=== PATIENT | female | born 1935 | race Caucasian/White ===

== ENCOUNTER → 2016-12-14 | Outpatient (CLI) | payer MEDICARE, OTHER ==
[~2016-12-14] MED LIST: DENOSUMAB 60 MG/1 ML (PROLIA) CANCER CTR SQ SCH
== END ==
LOC: FS 10:01
PROVIDERS: ATTEND Internal Medicine Hematology & Oncology
DX: C50.412 Malignant neoplasm of upper-outer quadrant of left female breast (principal); Z17.0 Estrogen receptor positive status [ER+]; M81.0 Age-related osteoporosis without current pathological fracture; F03.90 Unspecified dementia, unspecified severity, without behavioral disturbance, psychotic disturbance, mood disturbance, and anxiety; I10 Essential (primary) hypertension; I48.91 Unspecified atrial fibrillation; Z90.12 Acquired absence of left breast and nipple; Z79.810 Long term (current) use of selective estrogen receptor modulators (SERMs); Z79.899 Other long term (current) drug therapy
CPT/HCPCS: 96372; 99213

== ENCOUNTER → 2017-04-11 | Outpatient (CLI) | payer MEDICARE, OTHER | LOC: CARD 09:12 | PROVIDERS: ATTEND Internal Medicine Interventional Cardiology | DX: I48.91 Unspecified atrial fibrillation (principal); I10 Essential (primary) hypertension; R05 Cough; R55 Syncope and collapse | CPT/HCPCS: 93306 ==

== ENCOUNTER 2017-05-09 09:01 | Outpatient (RCR) | payer MEDICARE, OTHER | END 2017-06-18 | disposition home or self-care (01) | LOC: CARD 09:01 | PROVIDERS: ATTEND Internal Medicine Interventional Cardiology | DX: I48.91 Unspecified atrial fibrillation (principal); I10 Essential (primary) hypertension; R55 Syncope and collapse | CPT/HCPCS: 93270 ==

== ENCOUNTER 2017-06-07 16:02 | Outpatient (RCR) | payer MEDICARE, OTHER | END 2017-06-15 09:38 | disposition home or self-care (01) | LOC: ONC 16:02 | PROVIDERS: ATTEND Internal Medicine Hematology & Oncology | DX: Z08 Encounter for follow-up examination after completed treatment for malignant neoplasm (principal); Z85.3 Personal history of malignant neoplasm of breast; M81.0 Age-related osteoporosis without current pathological fracture; F03.90 Unspecified dementia, unspecified severity, without behavioral disturbance, psychotic disturbance, mood disturbance, and anxiety; I10 Essential (primary) hypertension; I48.91 Unspecified atrial fibrillation; Z17.0 Estrogen receptor positive status [ER+]; Z90.12 Acquired absence of left breast and nipple; Z79.810 Long term (current) use of selective estrogen receptor modulators (SERMs); Z79.899 Other long term (current) drug therapy | CPT/HCPCS: 96372 ==

== ENCOUNTER 2017-11-29 09:29 | Outpatient (RCR) | payer MEDICARE, OTHER ==
[2017-11-29 09:47] LABS: BASOPHILS % (AUTO) 0 % (0-10); EOSINOPHILS # (AUTO) 0.1 10^3/uL (0.0-0.3); EOSINOPHILS % (AUTO) 1 % (0-10); HEMATOCRIT 34 % (35-52); HEMOGLOBIN 11.5 G/DL (11.5-16.0); LYMPHOCYTES # (AUTO) 0.8 X 10^3 (1.0-4.0); LYMPHOCYTES % (AUTO) 13 % (12-44); MEAN CORPUSCULAR HEMOGLOBIN 30 PG (25-34); MEAN CORPUSCULAR HGB CONC 34 G/DL (32-36); MEAN CORPUSCULAR VOLUME 90 FL (80-99); MEAN PLATELET VOLUME 9.9 FL (7.4-10.4); MONOCYTES # (AUTO) 0.7 X 10^3 (0.0-1.0); MONOCYTES % (AUTO) 11 % (0-12); NEUTROPHILS # (AUTO) 4.7 X 10^3 (1.8-7.8); NEUTROPHILS % (AUTO) 75 % (42-75); PLATELET COUNT 261 10^3/uL (130-400); RED BLOOD COUNT 3.81 10^6/uL (4.35-5.85); RED CELL DISTRIBUTION WIDTH 12.6 % (10.0-14.5); WHITE BLOOD COUNT 6.2 10^3/uL (4.3-11.0)
[2017-11-29 10:08] LABS: ALANINE AMINOTRANSFERASE 18 U/L (0-55); ALBUMIN 3.8 GM/DL (3.2-4.5); ALKALINE PHOSPHATASE 75 U/L (40-136); BILIRUBIN,TOTAL 0.7 MG/DL (0.1-1.0); BUN/CREATININE RATIO 16; CALCIUM 9.8 MG/DL (8.5-10.1); CARBON DIOXIDE 30 MMOL/L (21-32); CHLORIDE 100 MMOL/L (98-107); CREATININE SERUM 0.83 MG/DL (0.60-1.30); GFR ESTIMATED > 60; GLUCOSE 145 MG/DL (70-105); POTASSIUM 4.2 MMOL/L (3.6-5.0); SODIUM 135 MMOL/L (135-145); TOTAL PROTEIN 7.1 GM/DL (6.4-8.2)
[2017-11-29] MEDS ORDERED: DENOSUMAB 60 MG/1 ML (PROLIA) CANCER CTR SQ SCH (10:45)
== END 2018-02-27 | disposition home or self-care (01) ==
LOC: ONC 09:29
PROVIDERS: ATTEND Internal Medicine Hematology & Oncology
DX: Z08 Encounter for follow-up examination after completed treatment for malignant neoplasm (principal); Z85.3 Personal history of malignant neoplasm of breast; M81.0 Age-related osteoporosis without current pathological fracture; R19.7 Diarrhea, unspecified; F03.90 Unspecified dementia, unspecified severity, without behavioral disturbance, psychotic disturbance, mood disturbance, and anxiety; I10 Essential (primary) hypertension; I48.91 Unspecified atrial fibrillation; Z90.12 Acquired absence of left breast and nipple; Z79.01 Long term (current) use of anticoagulants; Z79.899 Other long term (current) drug therapy
CPT/HCPCS: 36415; 80053; 85025; 96372; 99213

== ENCOUNTER 2018-06-12 08:46 | Outpatient (RCR) | payer MEDICARE, OTHER ==
[2018-06-12 09:02] LABS: BASOPHILS % (AUTO) 0 % (0-10); EOSINOPHILS # (AUTO) 0.1 10^3/uL (0.0-0.3); EOSINOPHILS % (AUTO) 2 % (0-10); HEMATOCRIT 34 % (35-52); HEMOGLOBIN 11.9 G/DL (11.5-16.0); LYMPHOCYTES % (AUTO) 18 % (12-44); MEAN CORPUSCULAR HEMOGLOBIN 32 PG (25-34); MEAN CORPUSCULAR HGB CONC 35 G/DL (32-36); MEAN CORPUSCULAR VOLUME 90 FL (80-99); MEAN PLATELET VOLUME 10.1 FL (7.4-10.4); MONOCYTES # (AUTO) 0.7 X 10^3 (0.0-1.0); MONOCYTES % (AUTO) 13 % (0-12); NEUTROPHILS # (AUTO) 3.8 X 10^3 (1.8-7.8); NEUTROPHILS % (AUTO) 67 % (42-75); PLATELET COUNT 213 10^3/uL (130-400); RED BLOOD COUNT 3.78 10^6/uL (4.35-5.85); RED CELL DISTRIBUTION WIDTH 12.9 % (10.0-14.5); WHITE BLOOD COUNT 5.7 10^3/uL (4.3-11.0)
[2018-06-12 09:23] LABS: ALBUMIN 3.9 GM/DL (3.2-4.5); BILIRUBIN,TOTAL 0.8 MG/DL (0.1-1.0); CALCIUM 9.7 MG/DL (8.5-10.1); POTASSIUM 3.8 MMOL/L (3.6-5.0); TOTAL PROTEIN 6.9 GM/DL (6.4-8.2)
[2018-06-12] MEDS ORDERED: DENOSUMAB 60 MG/1 ML (PROLIA) CANCER CTR SQ SCH (09:58)
[2018-06-12 10:04] LABS: BILIRUBIN,URINE NEGATIVE (NEGATIVE); CLARITY,URINE VERY CLOUDY; COLOR,URINE YELLOW; GLUCOSE, URINE (UA) NEGATIVE (NEGATIVE); KETONES,URINE NEGATIVE (NEGATIVE); LEUKOCYTE ESTERASE ,URINE 3+ (NEGATIVE); NITRITE,URINE NEGATIVE (NEGATIVE); PH,URINE 6 (5-9); PROTEIN,URINE 1+ (NEGATIVE); UROBILINOGEN,URINE NORMAL (NORMAL)
[2018-06-12 10:14] LABS: BACTERIA,URINE MODERATE /HPF; RBC,URINE >100 /HPF
== END 2018-06-18 | disposition home or self-care (01) ==
LOC: ONC 08:46
PROVIDERS: ATTEND Internal Medicine Hematology & Oncology
DX: Z08 Encounter for follow-up examination after completed treatment for malignant neoplasm (principal); Z85.3 Personal history of malignant neoplasm of breast; M81.0 Age-related osteoporosis without current pathological fracture; R82.90 Unspecified abnormal findings in urine; F03.90 Unspecified dementia, unspecified severity, without behavioral disturbance, psychotic disturbance, mood disturbance, and anxiety; I10 Essential (primary) hypertension; I48.91 Unspecified atrial fibrillation; Z90.12 Acquired absence of left breast and nipple; Z79.01 Long term (current) use of anticoagulants; Z79.899 Other long term (current) drug therapy
CPT/HCPCS: 36415; 80053; 81000; 85025; 87088; 96372; 99213

== ENCOUNTER 2018-12-11 09:11 | Outpatient (RCR) | payer MEDICARE, OTHER ==
[2018-12-11] MEDS ORDERED: DENOSUMAB 60 MG/1 ML (PROLIA) CANCER CTR SQ SCH (09:30)
== END 2019-03-11 | disposition home or self-care (01) ==
LOC: ONC 09:11
PROVIDERS: ATTEND Internal Medicine Hematology & Oncology
DX: Z08 Encounter for follow-up examination after completed treatment for malignant neoplasm (principal); Z85.3 Personal history of malignant neoplasm of breast; M81.0 Age-related osteoporosis without current pathological fracture; R82.90 Unspecified abnormal findings in urine; F03.90 Unspecified dementia, unspecified severity, without behavioral disturbance, psychotic disturbance, mood disturbance, and anxiety; I10 Essential (primary) hypertension; I48.91 Unspecified atrial fibrillation; Z90.12 Acquired absence of left breast and nipple; Z79.01 Long term (current) use of anticoagulants; Z79.899 Other long term (current) drug therapy; Z17.0 Estrogen receptor positive status [ER+]; Z79.810 Long term (current) use of selective estrogen receptor modulators (SERMs)
CPT/HCPCS: 96372

== ENCOUNTER → 2019-05-31 | Outpatient (CLI) | payer MEDICARE, OTHER ==
--- NOTE | 2019-05-31 13:48 | Diagnostic Imaging Report ---
CLINICAL INDICATION: Patient with TIA and syncope. COMPARISON: None. EXAM: Real-time carotid Doppler duplex imaging is performed bilaterally. Peak systolic velocity, ICA/CCA peak systolic ratio, spectral analysis, and vascular morphology are studied. FINDINGS: ARTERY VELOCITY Right Left CCA 0.75 m/s 0.83 m/s ICA 0.67 m/s 1.03 m/s ECA 0.59 m/s 0.67 m/s ICA/CCA 0.9 1.2 VERT.ART Antegrade Antegrade There is mild bilateral carotid artery atherosclerotic disease. IMPRESSION: There is mild bilateral carotid artery atherosclerotic disease with no grayscale or Doppler evidence of significant vascular stenosis. Dictated by: Dictated on workstation # [id number]
== END ==
LOC: CARD 08:20
PROVIDERS: ATTEND Internal Medicine Interventional Cardiology
DX: G45.9 Transient cerebral ischemic attack, unspecified (principal); I49.2 Junctional premature depolarization; I11.9 Hypertensive heart disease without heart failure; E78.5 Hyperlipidemia, unspecified; I48.0 Paroxysmal atrial fibrillation; I27.20 Pulmonary hypertension, unspecified; I65.23 Occlusion and stenosis of bilateral carotid arteries; I08.0 Rheumatic disorders of both mitral and aortic valves
CPT/HCPCS: 93306; 93880

== ENCOUNTER 2019-06-12 09:29 | Outpatient (RCR) | payer MEDICARE, OTHER | END 2019-09-10 | disposition home or self-care (01) | LOC: ONC 09:29 | PROVIDERS: ATTEND Internal Medicine Hematology & Oncology | DX: Z08 Encounter for follow-up examination after completed treatment for malignant neoplasm (principal); Z85.3 Personal history of malignant neoplasm of breast; M81.0 Age-related osteoporosis without current pathological fracture; R82.90 Unspecified abnormal findings in urine; F03.90 Unspecified dementia, unspecified severity, without behavioral disturbance, psychotic disturbance, mood disturbance, and anxiety; I10 Essential (primary) hypertension; I48.91 Unspecified atrial fibrillation; Z90.12 Acquired absence of left breast and nipple; Z79.01 Long term (current) use of anticoagulants; Z79.899 Other long term (current) drug therapy; Z17.0 Estrogen receptor positive status [ER+]; Z79.810 Long term (current) use of selective estrogen receptor modulators (SERMs) | CPT/HCPCS: 99213 ==

== ENCOUNTER 2019-11-06 09:52 | Outpatient (RCR) | payer MEDICARE, OTHER ==
[2019-11-06 10:02] LABS: BASOPHILS % (AUTO) 1 % (0-10); EOSINOPHILS # (AUTO) 0.1 10^3/uL (0.0-0.3); EOSINOPHILS % (AUTO) 1 % (0-10); HEMATOCRIT 35 % (35-52); HEMOGLOBIN 11.7 G/DL (11.5-16.0); LYMPHOCYTES # (AUTO) 0.8 X 10^3 (1.0-4.0); LYMPHOCYTES % (AUTO) 15 % (12-44); MEAN CORPUSCULAR HEMOGLOBIN 30 PG (25-34); MEAN CORPUSCULAR HGB CONC 33 G/DL (32-36); MEAN CORPUSCULAR VOLUME 89 FL (80-99); MEAN PLATELET VOLUME 9.7 FL (7.4-10.4); MONOCYTES # (AUTO) 0.6 X 10^3 (0.0-1.0); MONOCYTES % (AUTO) 10 % (0-12); NEUTROPHILS # (AUTO) 4.2 X 10^3 (1.8-7.8); NEUTROPHILS % (AUTO) 74 % (42-75); PLATELET COUNT 244 10^3/uL (130-400); RED CELL DISTRIBUTION WIDTH 13.3 % (10.0-14.5); WHITE BLOOD COUNT 5.7 10^3/uL (4.3-11.0)
[2019-11-06 10:24] LABS: ALANINE AMINOTRANSFERASE < 6 U/L (0-55); ALKALINE PHOSPHATASE 97 U/L (40-136); BILIRUBIN,TOTAL 0.6 MG/DL (0.1-1.0); BUN/CREATININE RATIO 10; CALCIUM 9.9 MG/DL (8.5-10.1); CARBON DIOXIDE 29 MMOL/L (21-32); CHLORIDE 102 MMOL/L (98-107); CREATININE SERUM 1.08 MG/DL (0.60-1.30); GFR ESTIMATED 48; GLUCOSE 116 MG/DL (70-105); POTASSIUM 3.8 MMOL/L (3.6-5.0); SODIUM 139 MMOL/L (135-145); TOTAL PROTEIN 7.1 GM/DL (6.4-8.2)
== END 2020-02-04 | disposition home or self-care (01) ==
LOC: ONC 09:52
PROVIDERS: ATTEND Internal Medicine Hematology & Oncology
DX: Z08 Encounter for follow-up examination after completed treatment for malignant neoplasm (principal); Z85.3 Personal history of malignant neoplasm of breast; M81.0 Age-related osteoporosis without current pathological fracture; R82.90 Unspecified abnormal findings in urine; F03.90 Unspecified dementia, unspecified severity, without behavioral disturbance, psychotic disturbance, mood disturbance, and anxiety; I10 Essential (primary) hypertension; I48.91 Unspecified atrial fibrillation; Z90.12 Acquired absence of left breast and nipple; Z79.01 Long term (current) use of anticoagulants; Z79.899 Other long term (current) drug therapy; Z17.0 Estrogen receptor positive status [ER+]; Z79.810 Long term (current) use of selective estrogen receptor modulators (SERMs)
CPT/HCPCS: 80053; 85025; 96372

== ENCOUNTER → 2019-11-12 | Outpatient (CLI) | payer MEDICARE, OTHER ==
[~2019-11-12] MED LIST changes: +CATHETER FLUSH 10 ML SYR IV PRN; -DENOSUMAB 60 MG/1 ML (PROLIA) CANCER CTR SQ SCH; +HOLD METFORMIN - RECEIVED CONTRAST 20 ML VIAL IV SCH; +IOHEXOL 350 MG/ML 100 ML (OMNIPAQUE 350) VIAL IV ONE; +NS 100 ML (IVPB) BAG IV ONE
--- NOTE | 2019-11-12 12:12 | Diagnostic Imaging Report ---
PROCEDURE: CT abdomen with and without contrast. TECHNIQUE: Multiple contiguous axial CT images of the abdomen were obtained prior to and after intravenous administration of iodinated contrast. Auto Exposure Controls were utilized during the CT exam to meet ALARA standards for radiation dose reduction. DATE: November 12, 2019. COMPARISON: None. INDICATION: 84-year-old female, hematuria. Mid abdominal pain. History of left breast cancer. FINDINGS: There are bilateral breast implants. The heart is not grossly enlarged. There is no identified pericardial effusion. There are atherosclerotic calcifications. There is no identified high-grade vascular narrowing or occlusion. There is a small right and a small left pleural effusion. There is mild compressive atelectasis in the dependent aspect of the right lower lobe. The liver is unremarkable in size and contour. There is no identified liver lesion. The main, right, and left portal veins are patent. The patient is status post cholecystectomy. The common bile duct measures up to 8 mm in diameter which is within normal limits for patient age. There are multiple small rounded low-attenuation foci along the course of the pancreas. These potentially could relate to abnormally dilated pancreatic ductal side branches. Multiple low-attenuation pancreatic lesions would be an additional less likely consideration. The spleen is not enlarged. The adrenal glands are unremarkable. Unremarkable appearance of the renal parenchyma. There is no hydronephrosis. The imaged portions of the intestinal tract are not distended. There is no identified abnormally enlarged lymph node in the abdomen or pelvis which meets CT size criteria for adenopathy. There are degenerative changes of the spine. There is no identified bone lesion suspicious for a bone metastasis. There is no otherwise identified acute bony abnormality. IMPRESSION: CT ABDOMEN. 1. Small bilateral pleural effusions with mild compressive atelectasis in the right lower lobe. 2. Multiple abnormal low attenuation foci in the pancreas which potentially could relate to abnormal appearance of the pancreatic ducts and findings of chronic pancreatitis. Multiple low-attenuation lesions in the pancreas is considered less likely. This would be more optimally evaluated with imaging with MRI abdomen without and with intravenous contrast with MRCP sequences. Correlation with earlier comparison cross-sectional imaging would be recommended if available to assess for potential stability. 3. No evidence of acute pancreatitis. 4. No evidence of metastatic disease in the abdomen. Dictated by: Dictated on workstation # [id number]
== END ==
LOC: RAD FS 10:39
PROVIDERS: ATTEND Internal Medicine Hematology & Oncology
DX: R31.9 Hematuria, unspecified (principal); C50.412 Malignant neoplasm of upper-outer quadrant of left female breast; J90 Pleural effusion, not elsewhere classified; J98.11 Atelectasis
CPT/HCPCS: 74170

== ENCOUNTER 2019-12-22 20:20 | Emergency (ER) | payer MEDICARE, OTHER ==
[~2019-12-22] VITALS: Ht 165.1 cm; Wt 78.7 kg
--- OUTSIDE RECORDS SUMMARY | 2019-12-22 20:28 | XMS REPORT | Encounter Summary ---
Author Author [facility] Organization [facility] Address Unknown Phone Unavailable Care Team Providers Care President [employer]gon[employer] Consulting Name Role Phone Laura Lee PCP Reason for Visit * Reason Comments MILD CONGNITIVE LAST OFFICE VISIT: 07/19/19 ; 3MO F/U. Pt states "tremors have decreased and IMPAIRMENT more alert" Encounter Details Care Team Description Date Type Department Andrzej Gama, [address] [address] [phone] Mild cognitive impairment (Primary Dx); Parkinson's disease (HCC); Tremor, essential; Compulsive behavior; Bradycardia 10/19/2019 [place] [facility] [address] [facility] [address] [place] [address] Social History Date Tobacco Use Types Packs/Day Years Used Never Smoker Smokeless Tobacco: Never Used Drinks/Week oz/Week Comments Alcohol Use No Sex Assigned at Date Recorded Not on file Industry Job Start Date Occupation Not on file Not on file Not on file Travel End Travel History Travel Start No recent travel history available. documented as of this encounter Last Filed Vital Signs Reading Time Taken Comments Vital Sign 118/58 10/19/2019 11:07 AM PILE OPERATOR Blood Pressure 50 10/19/2019 11:07 AM PILE OPERATOR Pulse - - Temperature - - Respiratory Rate - - Oxygen Saturation - - Inhaled Oxygen Concentration 77.7 kg (171 lb 6.4 oz) 10/19/2019 11:07 AM PILE OPERATOR Weight 170.2 cm (5' 7") 10/19/2019 11:07 AM PILE OPERATOR Height 26.85 10/19/2019 11:07 AM PILE OPERATOR Body Mass Index documented in this encounter Progress Notes * Andrzej Gama, DO - 10/19/2019 11:15 AM PILE OPERATOR NEUROLOGY OFFICE VISIT Patient Name: Bettina Dean : 1935 PCP: Laura Lee MD Date of service: 10/19/2019 HISTORY OF PRESENT ILLNESS Bettina Dean is a 84 y.o., female seen in followup, accompanied by her so n, Uri, last seen on July 19 last year regarding her mild cognitive impairm ent, mild idiopathic Parkinson disease, compulsion of facial touching, and benenid n essential tremor. She had a prior history of a TIA. No recent TIA or strokel nette symptoms. She has chronic atrial fibrillation on Eliquis. She is on sotalo l. She sees a welder apprentice arc regularly. For her mild cognitive impairment, she is on donepezil 10 mg daily. There has b een no change in cognition. She occasionally rubs her face, scratches her head and fumbles in her hands. No delusions or hallucinations. For her parkinsonism, she is on regular carbidopa/levodopa 25/100 t.i.d., which she is tolerating well. It has helped her tremor. No problems with balance. N o near falling or falling episodes. No drooling. No RLS symptoms. No dream en actment. She denies any dizziness or lightheadedness. No syncopal episodes. S he is in assisted living. I reviewed her medical problem list : Pedal edema, hypokalemia, prior syncope, a trial fibrillation, nonrheumatic mitral prolapse and insufficiency, essential hy pertension, constipation, GERD, PAD, glaucoma, and pulmonary hypertension. REVIEW OF SYSTEMS ROS other than documented in HPI 10 point review of systems is otherwise negativ e. CURRENT MEDICATIONS: Patient's Medications New Prescriptions No medications on file Previous Medications APIXABAN (ELIQUIS) 5 MG TABLET Take 5 mg by mouth 2 (two) times a day. BENZONATATE (TESSALON) 100 MG CAPSULE Take 100 mg by mouth 2 (two) times a d ay. CALCIUM CARBONATE (CALCIUM 500 ORAL) Take 1 tablet by mouth daily. CARBIDOPA-LEVODOPA (SINEMET) 25-100 MG PER TABLET Take 1 tablet by mouth 3 ( three) times a day. CHOLECALCIFEROL, VITAMIN D3, (VITAMIN D3) 2,000 UNIT TAB Take 2,000 Units by mouth daily. DABIGATRAN ETEXILATE (PRADAXA) 75 MG CAPSULE Take 75 mg by mouth 2 (two) ana es a day. DOCUSATE CALCIUM (SURFAK) 240 MG CAPSULE Take 240 mg by mouth as needed for constipation. DONEPEZIL (ARICEPT) 10 MG TABLET 1 tab daily FAMOTIDINE (PEPCID) 20 MG TABLET Take 20 mg by mouth at bedtime. FLUTICASONE PROPIONATE (FLONASE ALLERGY RELIEF) 50 MCG/ACTUATION NASAL SPRAY Use 1 spray in each nostril as directed. FOOD SUPPLEMT, LACTOSE-REDUCED (ENSURE ORIGINAL) 0.04-1.05 GRAM-KCAL/ML LIQD Take by mouth 2 (two) times a day. IPRATROPIUM (ATROVENT) 0.03 % NASAL SPRAY Use 2 sprays in each nostril 2 (tw o) times a day. LATANOPROST (XALATAN) 0.005 % OPHTHALMIC SOLUTION Administer 1 drop to eye d aily. LEVOCETIRIZINE (XYZAL) 5 MG TABLET Take 5 mg by mouth every evening. MONTELUKAST (SINGULAIR) 10 MG TABLET Take 10 mg by mouth daily. NAPROXEN SODIUM (ALEVE) 220 MG CAP Take 1 capsule by mouth every 4 (four) ho urs as needed. POLYETHYLENE GLYCOL (MIRALAX) 17 GRAM/DOSE POWDER Take by mouth as needed. POTASSIUM CHLORIDE ORAL Take 10 mEq by mouth daily. SENNA (SENOKOT) 8.6 MG TABLET Take 1 tablet by mouth as needed for constipat ion. SERTRALINE (ZOLOFT) 25 MG TABLET Take 25 mg by mouth daily. SOTALOL (BETAPACE) 80 MG TABLET SOTALOL HCL (SOTALOL ORAL) Take by mouth. Pt states taking 1 pill in the AM and 1/2 pill in the PM WHITE PETROLATUM (AQUAPHOR HEALING) 41 % OINTMENT Apply topically as needed. Modified Medications No medications on file Discontinued Medications No medications on file ALLERGIES: No Known Allergies Physical Exam: Blood Pressure: BP: 118/58 Pulse: Pulse: (!) 50 Temperature: Respirations: Admission Weight: Weight: 77.7 kg (171 lb 6.4 oz) O2 Saturation: Today's Weight: Weight: 77.7 kg (171 lb 6.4 oz) BMI: Body mass index is 26.85 kg /m. She is alert with appropriate affect and mood, in no distress. Mild hypophonia. Language function intact. She is oriented x3. She could obey serial commands. She spells the word 'world' forwards and backwards. Recall 2-3 objects at 5 minutes.Clock drawing task normal.One-minute animal naming 13 (slightly abnorma l). Mild masked facies.EOMI. No tremor when drawing an Archimedes spiral.Continuous moderate amplitude right hand resting tremor. Minimal bilateral arm postural tremor which increased with kinetic movements. Mild right cogwheel rigidity only with augmentation. Finger tapping mildly slow on the right.Slight stooped posture with ambulation with reduced arm swing on the right and increasing right hand tremor. Normal leg str radha length. She turned slightly en bloc. Normal pull. Impression: Parkinson's disease stable. Mild cognitive impairment Compulsive behavior nonproblematic Minimal benign essential tremor Asymptomatic bradycardia Plan: No changes in her medication regimen. I recommended that she see her cardiology regarding asymptomatic bradycardia.Donepezil may be the cause. If this is so, I can discontinue this. Follow up in 6 months and p.r.n. Electronically signed by Andrzej Gama DO 10/19/2019 12:19 PM OPERATOR documented in this encounter Plan of Treatment Care Team Description Date Type Specialty Andrzej Gama DO [address] [address] [phone] 04/17/2020 Office Visit Neurology documented as of this encounter Visit Diagnoses Diagnosis Mild cognitive impairment Mild cognitive impairment, so stated Parkinson's disease (HCC) Paralysis agitans Tremor, essential Essential and other specified forms of tremor Compulsive behavior Obsessive-compulsive disorders Bradycardia Other specified cardiac dysrhythmias documented in this encounter
--- OUTSIDE RECORDS SUMMARY | 2019-12-22 20:28 | XMS REPORT | Clinical Summary ---
Author Author [facility] Organization [facility] Address Unknown Phone Unavailable Care Team Providers Care Central Office Maintainer Name Role Phone LeeLaura PCP Allergies No Known Allergies Medications End Date Status Medication Sig Dispensed Refills Start Date Active SOTALOL HCL (SOTALOL Take by 0 ORAL) mouth. Pt states taking 1 pill in the AM and 1/2 pill in the PM Active benzonatate (TESSALON) Take 100 mg 0 100 MG capsule by mouth 2 (two) times a day. Active famotidine (PEPCID) 20 MG Take 20 mg by 0 tablet mouth at bedtime. Active POTASSIUM CHLORIDE ORAL Take 10 mEq 0 by mouth daily. Active levocetirizine (XYZAL) 5 Take 5 mg by 0 MG tablet mouth every evening. Active sertraline (ZOLOFT) 25 mg Take 25 mg by 0 tablet mouth daily. Active cholecalciferol, vitamin Take 2,000 0 D3, (VITAMIN D3) 2,000 Units by unit Tab mouth daily. Active ipratropium (ATROVENT) Use 2 sprays 0 0.03 % nasal spray in each nostril 2 (two) times a day. Active CALCIUM CARBONATE Take 1 tablet 0 (CALCIUM 500 ORAL) by mouth daily. Active polyethylene glycol Take by mouth 0 (MIRALAX) 17 gram/dose as needed. powder Active sotalol (BETAPACE) 80 MG 0 tablet 7 Active white petrolatum Apply 0 (AQUAPHOR HEALING) 41 % topically as ointment needed. Active senna (SENOKOT) 8.6 mg Take 1 tablet 0 tablet by mouth as needed for constipation. Active docusate calcium (SURFAK) Take 240 mg 0 240 mg capsule by mouth as needed for constipation. 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 Active carbidopa-levodopa Take 1 tablet 90 tablet 5 04/26 (SINEMET) 25-100 mg per by mouth 3 9 tabletIndications: (three) times parkinsonism a day. Active latanoprost (XALATAN) Administer 1 0 0.005 % ophthalmic drop to eye solution daily. Active fluticasone propionate Use 1 spray 0 (FLONASE ALLERGY RELIEF) in each 50 mcg/actuation nasal nostril as spray directed. Active food supplemt, Take by mouth 0 lactose-reduced (ENSURE 2 (two) times ORIGINAL) 0.04-1.05 a day. gram-kcal/mL Liqd Active naproxen sodium (ALEVE) Take 1 0 220 mg cap capsule by mouth every 4 (four) hours as needed. Active montelukast (SINGULAIR) Take 10 mg by 0 10 mg tablet mouth daily. Active apixaban (ELIQUIS) 5 mg Take 5 mg by 0 tablet mouth 2 (two) times a day. Active Problems Problem Noted Date Compulsive behavior 10/19/2019 Bradycardia 10/19/2019 Tremor, essential 07/19/2019 Parkinson's disease 04/26/2019 Mild cognitive impairment 07/14/2017 Resolved Problems Problem Noted Date Resolved Date Mild cognitive impairment 08/28/2018 09/20/2018 Encounters Care Team Description Date Type Specialty Andrzej Gama DO Mild cognitive impairment (Primary Dx); Parkinson's disease (HCC); Tremor, essential; Compulsive behavior; Bradycardia 10/19/2019 Office Visit Neurology from Last 3 Months Family History Medical History Relation Name Comments No Known Problems Daughter Diabetes Mother Stroke Mother Tremor Mother No Known Problems Son Relation Name Status Comments Daughter Alive Father Mother Son Alive Social History Date Tobacco Use Types Packs/Day Years Used Never Smoker Smokeless Tobacco: Never Used Drinks/Week oz/Week Comments Alcohol Use No Sex Assigned at Date Recorded Not on file Industry Job Start Date Occupation Not on file Not on file Not on file Travel End Travel History Travel Start No recent travel history available. Last Filed Vital Signs Reading Time Taken Comments Vital Sign 118/58 10/19/2019 11:07 AM REAL ESTATE ASSESSOR Blood Pressure 50 10/19/2019 11:07 AM REAL ESTATE ASSESSOR Pulse - - Temperature - - Respiratory Rate - - Oxygen Saturation - - Inhaled Oxygen Concentration 77.7 kg (171 lb 6.4 oz) 10/19/2019 11:07 AM REAL ESTATE ASSESSOR Weight 170.2 cm (5' 7") 10/19/2019 11:07 AM REAL ESTATE ASSESSOR Height 26.85 10/19/2019 11:07 AM REAL ESTATE ASSESSOR Body Mass Index Plan of Treatment Care Team Description Date Type Specialty Andrzej Gama, DO [address] [facility] [address] [place] [address] [phone] 04/17/2020 Office Visit Neurology Health Maintenance Due Date Last Done Comments Medicare Annual Wellness 1935 Td # 1935 Zoster Vaccine# (1 of 2) 1985 Depression Screening 2000 PHQ-9 # Fall Risk Assessment # 2000 Osteoporosis Screening 2000 Pneumococcal Vaccine: 65+ 2000 02/21/2019 Years (2 of 2 - PPSV23) Influenza Vaccine Completed 07/11/2019, 06/22/2017, 06/22/2016, Additional history exists Results Not on filefrom Last 3 Months Insurance Type Payer Benefit Subscriber ID Effective Phone Address Plan / Dates Group Medicare MEDICARE MEDICARE xxxxxxxxxxx 2000-P [place] PART A B [place], [place] COMMERCIAL-NONCONTRACTED MUTUAL OF xxxxxxxx 2015- DARRELL Present MEDICARE SUPPLEMENT [id number] Bettina Dean Personal/F Self [address] [place] (Home) [place] [address] Bettina Dean Personal/F Self [address] [place] (Home) [place], [place] [address] Bettina Dean Behavioral Self 1935 [address] [facility] (Home) [place], [place] [address] Advance Directives For more information, please contact: [phone] Patient Asset Protection Greeter Explanation Type Date Recorded Advance Directives and Living Will Power of [employer] Director EYAL Meza Power of [employer] Director 06/08/2017 1:02 PM Health Care Directive
--- OUTSIDE RECORDS SUMMARY | 2019-12-22 20:28 | XMS REPORT | Encounter Summary ---
Author Author [facility] Organization [facility] Address Unknown Phone Unavailable Care Team Providers Care Internet Salesperson Name Role Phone Laura Lee PCP Reason for Visit * Reason Comments Follow-up Last office visit was on with Dr. Andrzej Gama. Son states that the patient has some gait i nstability and it is always on the left side. Parkinson's Disease Mild Cognitive Impairment Daughter states that the p atient has had some memory relapses. Encounter Details Care Team Description Date Type Department Andrzej Gama, [address] [address] [phone] Mild cognitive impairment (Primary Dx); Parkinson's disease (HCC); Tremor, essential 07/19/2019 [place] [address] [facility] [address] [place], [place] [address] Social History Date Tobacco Use Types Packs/Day [...] Signs Reading Time Taken Comments Vital Sign 138/62 07/19/2019 11:35 AM CDT Blood Pressure 49 07/19/2019 11:35 AM CDT Pulse - - Temperature - - Respiratory Rate - - Oxygen Saturation - - Inhaled Oxygen Concentration 77.3 kg (170 lb 6.4 oz) 07/19/2019 11:35 AM CDT Weight 170.2 cm (5' 7") 07/19/2019 11:35 AM CDT Height 26.69 07/19/2019 11:35 AM CDT Body Mass Index documented in this encounter Progress Notes * Andrzej Gama J, DO - 07/19/2019 11:15 AM CDT NEUROLOGY OFFICE VISIT Patient Name: Bettina Dean : 1935 PCP: Laura Lee MD Date of service: 07/19/2019 HISTORY OF PRESENT ILLNESS Bettina Dean is a 84 y.o., female seen in followup, last seen on 019 regarding mild cognitive impairment, benign essential tremor, and newly diag nosed idiopathic Parkinson's disease. She has a history of TIA, and has chronic atrial fibrillation on oral anticoagulation. She is accompanied by her son Uri. She remains on donepezil 10 mg daily. There may be progression of cognitive impairment. He noticed that she would occasionally rubs her face and chin for no reason. She does josef the mail.She has no other unusual behavior. She is o n sertraline without any mood disturbance. For parkinsonism, I initiated a trial of regular carbidopa/levodopa, increasing over 5 weeks to 25/100 one t.i.d. with each meal. She was experiencing dizzine ss. I reduced her carbidopa/levodopa 25/100 to b.i.d. and it is uncertain wheth er the reduction of the dose may need difference. At the time she saw her card iologist.Apparently her blood pressure was low and heart rate was 45. She was gi katia hydration and her symptoms improved. She has had no recurrent dizziness. S he has had no major balance issues. Family has noted at times, when she veers t o the left when walking. No near falling falling episodes. Her shaking right t remor has not changed. It does not interfere with her ADLs. No swallowing prob lems. No drooling. No RLS symptoms. No dream enactment. She has had no TIA o r stroke-like symptoms. REVIEW OF SYSTEMS ROS 10-point review of systems is otherwise negative. CURRENT MEDICATIONS: Patient's Medications New Prescriptions No [...] Known Allergies Physical Exam: Blood Pressure: BP: 138/62 Pulse: Pulse: (!) 49 Temperature: Respirations: Admission Weight: Weight: 77.3 kg (170 lb 6.4 oz) O2 Saturation: Today's Weight: Weight: 77.3 kg (170 lb 6.4 oz) BMI: Body mass index is 26.69 kg /m. She is alert and cooperative in no distress.. Appropriate mood and affect. Mil d hypophonia. Language function intact. She is oriented x3. Attention normal. Recall 1/3 objects after 5 minutes. Clock-drawing normal. Mild masked faci es. Extraocular movements intact. Continuous right hand resting tremor. No dy skinesias. Mild right arm cogwheel rigidity. Minimal bilateral arm postural tr emor. Finger tapping is mildly slow on the right. With ambulation she had a sl ightly stooped posture with reduced arm swing bilaterally. She turned slightly en bloc. Normal pull. Several times her right hand would touch her face and c hin. Impression: Cognitive impairment stable. Mild idiopathic Parkinson's disease. Compulsion of touching her face. Benign essential tremor. Plan: For parkinsonism, I am increasing regular carbidopa/levodopa 25/100 to one t.i. d. as before I am holding off on treatment treatment of her compulsion at the present time Follow-up in 3 months and as needed Electronically signed by Andrzej Gama DO 07/19/2019 12:14 PM documented in this encounter Plan of Treatment Care Team Description Date Type Specialty Andrzej Gama DO [address] [address] [phone] 04/17/2020 Office Visit Neurology documented as of this encounter Visit Diagnoses Diagnosis Mild cognitive impairment Mild cognitive impairment, so stated Parkinson's disease (HCC) Paralysis agitans Tremor, essential Essential and other specified forms of tremor documented in this encounter
--- OUTSIDE RECORDS SUMMARY | 2019-12-22 20:29 | XMS REPORT | Encounter Summary ---
Author Author [facility] Organization [facility] Address Unknown Phone Unavailable Care Team Providers Care Material Requirements Worker Name Role Phone Laura Lee PCP Reason for Visit * Reason Comments transfer from Dr Stout Encounter Details Care Team Description Date Type Department Ash Stout MD No Forwarding Address transfer from Dr Stout 02/14/2019 Telephone [facility] [address] [facility] [address] [place] [address] Social History Date Tobacco Use Types Packs/Day Years Used Never Smoker Smokeless Tobacco: Never Used Drinks/Week oz/Week Comments Alcohol Use No Sex Assigned at Date Recorded Not on file Industry Job Start Date Occupation Not on file Not on file Not on file Travel End Travel History Travel Start No recent travel history available. documented as of this encounter Miscellaneous Notes * Telephone Encounter - María Enriquez MA - 02/14/2019 11:42 AM CDT When to call patient but she is scheduled already with Dr. Gama at [facility]. It appears the patient only wants to go to [facility] and Dr. Ramos does not got to that office. Will leave her as is. - Karoline 02/14/19 11:42 AM * Telephone Encounter - María Enriquez MA - 02/14/2019 11:41 AM CDT ----- Message from Meredith Naik MA sent at 02/14/2019 9:51 AM CDT ----- Please schedule w/ SF, ok'd to transfer from [facility]. Thank you. ----- Message ----- From: Dale Ramos MD Sent: 01/22/2019 9:34 PM To: Meredith Naik MA [place], sf ----- Message ----- From: Meredith Naik MA Sent: 01/22/2019 1:07 PM To: Dale Ramos MD Patient Transfer from Dr. Stout, please review possible new patient for you dx m ild cognitive impairment. documented in this encounter Plan of Treatment Care Team Description Date Type Specialty Andrzej Gama, [address] [place] [address] [phone] 04/17/2020 Office Visit Neurology documented as of this encounter Visit Diagnoses Not on filedocumented in this encounter
--- OUTSIDE RECORDS SUMMARY | 2019-12-22 20:29 | XMS REPORT | Encounter Summary ---
Author Author [facility] Organization [facility] Address Unknown Phone Unavailable Care Team Providers Care Academic Affairs Director Name Role Phone Laura Lee PCP Reason for Visit * Reason Comments Stroke Encounter Details Care Team Description Date Type Department Fred Man MD No Forwarding Address Memory loss (Primary Dx) 03/24/2017 Initial consult [facility] [address] [place] [address] Social History Date Tobacco Use Types Packs/Day [...] Signs Reading Time Taken Comments Vital Sign 111/49 03/24/2017 3:16 PM CDT Blood Pressure 65 03/24/2017 3:16 PM CDT Pulse - - Temperature - - Respiratory Rate - - Oxygen Saturation - - Inhaled Oxygen Concentration 63 kg (139 lb) 03/24/2017 3:16 PM CDT Weight 170.2 cm (5' 7") 03/24/2017 3:16 PM CDT Height 21.77 03/24/2017 3:16 PM CDT Body Mass Index documented in this encounter Patient Instructions * Patient Instructions* María Enriquez MA - 03/24/2017 3:15 PM CDT You will be hearing from Daivna Luciano regarding the IDEAS study and an appointme nt with Dr. Ramos. If you have questions, you can call [phone] documented in this encounter Progress Notes * Fred Man MD - 03/24/2017 3:15 PM CDT NEUROLOGY CONSULTATION Patient Name: Bettina Dean : 1935 PCP: Laura Lee MD Date of consultation: 03/24/2017 Requesting physician/service: Laura Lee MD Reason for consult: Abnormal MRI HISTORY OF PRESENT ILLNESS Bettina Dean is a 81 y.o., right handed female Lives in [facility], and her e with her daughter, who lives nearby Family became concerned about a year ago because of her cognitive problems, mainly forgetfulness Some depression, and on Zoloft Had twin sister with Alzheimers, and another sister with dementia No hx surface boss trauma or infection No seizures Possible TIA Had MRI in December, showing atrophy and enlarged ventricles, mild white matter disease Had a fall at home l , which happened when she got up from a chair Woke up on floor Found to have atrial fibrillation, seen in local ED and cardioverted On Sotalol and D emadex, ASA 81mg/d Not anticoagulated b/o fall risk Has not been eating and is losing weight No longer driving Not taking care of house very well Recent MM SE / Not incontinent Normally walks OK, but not very active REVIEW OF SYSTEMS A 12 system review of systems was negative except for where noted in the history of present illness above. PAST MEDICAL HISTORY Past Medical History: Diagnosis Date Atrial fibrillation (HCC) Breast cancer (HCC) Diverticulosis Mitral valve prolapse PAST SURGICAL HISTORY Past Surgical History: Procedure Laterality Date CHOLECYSTECTOMY HYSTERECTOMY MASTECTOMY FAMILY HISTORY Family History Problem Relation Age of Onset Stroke Mother Tremor Mother Diabetes Mother Family Status Relation Status Mother Father SOCIAL HISTORY Social History Social History Marital status: Spouse name: N/A Number of children: N/A Years of education: N/A Occupational History Not on file. Social History Main Topics Smoking status: Never Smoker Smokeless tobacco: Never Used Alcohol use No Drug use: No Sexual activity: Not on file Other Topics Concern Not on file Social History Narrative No narrative on file CURRENT MEDICATIONS Patient's Medications New Prescriptions No medications on file Previous Medications ASPIRIN 81 MG EC TABLET Take 81 mg by mouth daily. BENZONATATE (TESSALON) 100 MG CAPSULE Take 100 mg by mouth 2 (two) times a d ay. CALCIUM CARBONATE (CALCIUM 500 ORAL) Take by mouth. CHOLECALCIFEROL, VITAMIN D3, (VITAMIN D3) 2,000 UNIT TAB Take by mouth. DOCUSATE SODIUM (COLACE) 100 MG CAPSULE Take 100 mg by mouth 2 (two) times a day. FAMOTIDINE (PEPCID) 10 MG TABLET Take 10 mg by mouth 2 (two) times a day. HYDROCHLOROTHIAZIDE (HYDRODIURIL) 25 MG TABLET Take 25 mg by mouth daily. IPRATROPIUM (ATROVENT) 0.03 % NASAL SPRAY Use 2 sprays in each nostril every 12 (twelve) hours. LEVOCETIRIZINE (XYZAL) 5 MG TABLET Take 5 mg by mouth every evening. NAPROXEN (NAPROSYN) 250 MG TABLET Take 250 mg by mouth 2 (two) times a day w ith meals. OMEPRAZOLE (PRILOSEC) 20 MG CAPSULE Take 20 mg by mouth daily. POLYETHYLENE GLYCOL (MIRALAX) 17 GRAM/DOSE POWDER Take 17 g by mouth daily. POTASSIUM CHLORIDE ORAL Take 10 mEq by mouth daily. SERTRALINE (ZOLOFT) 25 MG TABLET Take 25 mg by mouth daily. SOTALOL HCL (SOTALOL ORAL) Take by mouth. Pt states taking 1 pill in the AM and 1/2 pill in the PM TORSEMIDE (DEMADEX) 20 MG TABLET Take 20 mg by mouth daily. Modified Medications No medications on file Discontinued Medications No medications on file ALLERGIES No Known Allergies EXAMINATION There were no vitals filed for this visit. Ht Readings from Last 1 Encounters: No data found for Ht Wt Readings from Last 1 Encounters: No data found for Wt There is no height or weight on file to calculate BMI. General: Ms. Dean is a healthy, well-nourished appearing female in no acute distre ss. Flat affect Head: Oropharynx clear. Head normocephalic, atraumatic. Cardiac: Regular rate and rhythm. No murmurs, rubs, or gallops. Lungs: Clear to auscultation bilaterally. Extremities: No cyanosis or edema. No clear skin lesions noted. Mental status, cognition, and cortical functions: Mental status (including orientation to person, place, and time; recent and r emote memory; attention and concentration; general fund of knowledge) is intact based on conversation and detailed medical history. Language is fluent with intact comprehension and repetition. Speech is clear and without dysarthria. Cranial nerves: Funduscopic examination reveals normal optic discs with distinct margins and without pallor or edema and grossly normal vessels. Pupils are equal, round, and reactive to light. Visual ceja are full. Extraocular eye movements are intact in all directions. No nystagmus on eye movements. Facial sensation is intact to light touch throughout. Muscles of facial expression are symmetric at rest and with activation. No weakness on eyelid or mouth closure. Hearing is intact to finger rubbing bilaterally. Palate elevates symmetrically. Tongue protrudes in the midline and has full excursions. No tongue atrophy, fasciculations, or scalloping was observed. Motor: Muscle bulk is normal throughout. Muscle tone is normal throughout. Strength on confrontational testing is 5/5 in proximal and distal muscle grou ps in all four extremities. No pronator drift was observed. No orbiting on arm/finger roll testing was observed. Gait and coordination: Gait is narrow based with a normal stride length, heel strike, and arm swing. Tandem gait is normal. She is able to toe walk without difficulty. Rapid alternating movements in the upper extremities (finger tapping) are nor mal. Rapid alternating movements in the lower extremities (toe tapping) are normal . Reflexes (right/left): Biceps: 2/2 Triceps: 2/2 Brachioradialis: 2/2 Patellae: 2/2 Achilles: 0/0 Plantar: flexor bilaterally. Sensation: Light touch sensation is intact throughout. Vibratory sensation is diminished to ankles Proprioception is intact throughout. Pain (pinprick) sensation is intact throughout. Temperature sensation is intact throughout. She has no extinction on double simultaneous tactile stimulation. Romberg testing is negative. STUDIES REVIEWED MRI brain IMPRESSION Ms. Dean is a 81 y.o. 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 [place] [address] [address] LABORATORIES * B12/Folate (03/24/2017 4:10 PM CDT) VITAMIN B12 548 239 - 931 pg/mL [facility] Folate 7.8 3.4 - 20.0 ng/mL [facility] Specimen Performing Organization Address [place]/[facility] [place] [address] [phone] LABORATORIES documented in this encounter Visit Diagnoses Diagnosis Memory loss documented in this encounter
--- OUTSIDE RECORDS SUMMARY | 2019-12-22 20:29 | XMS REPORT | Encounter Summary ---
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); Tremor, essential 12/15/2017 Office Visit [facility] [address] [place], [place] [address] Social History Date Tobacco Use Types Packs/Day [...] Signs Reading Time Taken Comments Vital Sign 126/64 12/15/2017 1:21 PM CDT Blood Pressure 63 12/15/2017 1:21 PM CDT Pulse - - Temperature - - Respiratory Rate - - Oxygen Saturation - - Inhaled Oxygen Concentration 63.5 kg (140 lb) 12/15/2017 1:21 PM CDT Weight 170.2 cm (5' 7") 12/15/2017 1:21 PM CDT Height 21.93 12/15/2017 1:21 PM CDT Body Mass Index documented in this encounter Progress Notes * Duane Baum MD - 12/15/2017 1:15 PM CDT [facility] Date: 12/15/17 Patient Name: Bettina Dean Date of : 1935 Chief Complaint: Encounter Diagnoses Name Primary? 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 Dean was seen in follow-up regarding her history of cognitive decline, unsteadiness of gait and essential tremor. Over the last 6 months, she is remained in a intermediate community and both e and her family feels that her cognitive functions have remained improved. Pre viously, when living independently, she was having difficulty managing her finan ezra and management of her home. However, with less responsibility and more soci alization her cognitive functions have improved. Following her initial evaluati on, she underwent a comprehensive cognitive assessment by Dr. Coughlin. That study revealed difficulty in multiple domains but was not consistent with a progressiv e dementia. Her imaging studies and laboratory studies were within normal range . She has been empirically placed on donepezil 10 mg daily and has tolerated th e medication with no side effects. She continues to complain of mild unsteadiness of her gait. However, she has no t had a fall since her last visit. She finds that if she moves more slowly and deliberately she can avoid falls. She has no specific limitations related to he r ataxia. She continues to demonstrate action tremor in both upper extremities. The tremo r is worse in certain postures and we have she is fatigued or stressed. However , she feels the tremor does not cause any limitations in her normal daily activi ties. She does have a family history of tremor. Review of Systems: On 10 point review of systems, she had no additional complaints. Examination: Vitals: 12/15/17 1321 BP: 126/64 Pulse: 63 Weight: 63.5 kg (140 lb) Height: 1.702 m (5' 7") On examination the patient was alert, oriented and able to provide a comprehensi ve history. Cranial nerve examination was normal. Motor examination revealed nor mal strength and tone in all extremities. She displayed a course action tremor in both upper extremities. Sensory exam was normal. Deep tendon reflexes were 2 /5 and symmetrical. Gait was slow, cautious and slightly wide-based. Turns were broken into multiple phases. Rapid alternating movements were symmetric. Assessment & Plan: SNOMED CT(R) 1. Mild cognitive impairment MILD COGNITIVE DISORDER 2. 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 Tremor, essential ESSENTIAL TREMOR No orders of the defined types were placed in this encounter. Mrs. Dean and her family feel that her cognitive functions have remained sta ble. Her cognitive changes may merely reflect age-related change, perhaps ampli fied by chronic depression rather than a progressive dementia. I have suggested that she return in 6 months, and, at that time, she will be referred to Dr. Coughlin for repeat cognitive assessment which can then be compared with her earlier zhanna study. This should determine whether or not she has a progressive melanie ia. We discussed medications for tremor suppression, but she does not feel that rikki ng additional medications as indicated. We also discussed her unsteadiness of g ait and the importance of moving slower and with more deliberation. She will return in 6 months. The majority of this 30 minute visit was spent in counseling. No Known Allergies Past Medical History: Diagnosis Date Atrial fibrillation (HCC) Breast cancer (HCC) Depression Diverticulosis Memory loss Mitral valve prolapse Syncope TIA (transient ischemic attack) Weakness Weakness of distal arms and legs Family History Problem Relation Age of Onset Stroke Mother Tremor Mother Diabetes Mother Social History Social History Marital status: Spouse name: N/A Number of children: N/A Years of education: N/A Social History Main Topics Smoking status: Never Smoker Smokeless tobacco: Never Used Alcohol use No Drug use: No Sexual activity: Not Asked Other Topics Concern None Social History Narrative None Duane Baum MD, FAAN Director, [facility] [place] [address] [place] [address] [phone] (phone) [phone] (fax) documented in this encounter Plan of Treatment Care Team Description Date Type Specialty Andrzej Gama DO [address] [id number] 04/17/2020 Office Visit Neurology documented as of this encounter Visit Diagnoses Diagnosis Mild cognitive impairment Mild cognitive impairment, so stated 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
--- OUTSIDE RECORDS SUMMARY | 2019-12-22 20:29 | XMS REPORT | Encounter Summary ---
Author Author [facility] Organization [facility] Address Unknown Phone Unavailable Care Team Providers Care Enterprise Systems Architect Name Role Phone Laura Lee PCP Reason for Visit * Reason Comments Results Encounter Details Care Team Description Date Type Department Ash Stout MD No Forwarding Address Mild cognitive impairment (Primary Dx) 09/20/2018 Office Visit [facility] o[facility] [address] [place] [address] Social History Date Tobacco Use Types Packs/Day [...] Signs Reading Time Taken Comments Vital Sign 119/60 09/20/2018 12:28 PM GROUNDSKEEPER Blood Pressure 49 09/20/2018 12:28 PM GROUNDSKEEPER Pulse - - Temperature - - Respiratory Rate - - Oxygen Saturation - - Inhaled Oxygen Concentration 70.8 kg (156 lb) 09/20/2018 12:28 PM GROUNDSKEEPER Weight 170.2 cm (5' 7") 09/20/2018 12:28 PM GROUNDSKEEPER Height 24.43 09/20/2018 12:28 PM GROUNDSKEEPER Body Mass Index documented in this encounter Progress Notes * Ash Stout MD - 09/20/2018 12:30 PM GROUNDSKEEPER NEUROLOGY CONSULTATION Patient Name: Bettina Dean : 1935 PCP: Laura Lee MD Date of service: 09/20/2018 See dictation HISTORY OF PRESENT ILLNESS/EXAM/IMPRESSION/PLAN: Bettina Dean was seen in follow-up on September 20, 2018 in the presence of her son for continued evaluation of cognitive decline consistent mild cognitive impairment. In fact with repeat neurocognitive testing, there has been's relati ve stability if not some modest improvement. She does have unsteady gait. This is actually improved. She has various tremulousness in her right hand. Time, there is a pill-rolling component but other times there is Apsley no particular with distraction. I do not think this is Parkinson's disease. There is no cogw heel rigidity. She remains on donepezil 10 mg daily for the mild cognitive impa irment. We again talked about this is being a way to keep her from becoming dem ented. 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 As before, she is involved in social activities at the nursing center. This is longterm community. She does not drive. She does not cook because of the microwave. She does do day-to-day activities of daily living within the apart ent. She does do some repetitive movement such as scratching her face which aga in is seen today. I think this is more of a behavioral issue rather than neurol ogic. Today, she was awake, alert, completely oriented to time, place, situation. She remembered 2 of 3 words after 3 minutes which is the same as last time. She is able name, repeat, follow direction and spell world backward. She knew about c urrent events. She seemed to be more forthcoming with her discussion rather hermilo n argumentative. I think this represents an improvement. Again, there is varia ble tremulousness of the right hand. At times pill-rolling but does stop with d istraction. No cogwheel rigidity. No shuffling gait. Moderate size steps. No rmal arm swing. Interval discussion, will continue donepezil 10 mg daily for mild, impairment, n ot dementia. She does not seem to have a specific primary movement disorder but rather behavioral change. We will continue to watch that as well. She will re turn in February. Vitals: 09/20/18 1228 BP: 119/60 Pulse: (!) 49 Weight: 70.8 kg (156 lb) Height: 1.702 m (5' 7") Body mass index is 24.43 kg/m. REVIEW OF SYSTEMS A 12 system review of systems was negative except for where noted in the history of present illness above. CURRENT MEDICATIONS benzonatate (TESSALON) 100 MG capsule Take 100 mg by mouth 2 (two) times a d ay. CALCIUM CARBONATE (CALCIUM 500 ORAL) Take by mouth. cholecalciferol, vitamin D3, (VITAMIN D3) 2,000 unit Tab Take by mouth. dabigatran etexilate (PRADAXA) 75 mg capsule Take 75 mg by mouth 2 (two) ana es a day. docusate calcium (SURFAK) 240 mg capsule Take 240 mg by mouth as needed for constipation. donepezil (ARICEPT) 10 MG tablet 1 tab daily famotidine (PEPCID) 20 MG tablet Take 20 mg by mouth at bedtime. ipratropium (ATROVENT) 0.03 % nasal spray Use 2 sprays in each nostril every 12 (twelve) hours. levocetirizine (XYZAL) 5 MG tablet Take 5 mg by mouth every evening. polyethylene glycol (MIRALAX) 17 gram/dose powder Take by mouth as needed. POTASSIUM CHLORIDE ORAL Take 10 mEq by mouth daily. senna (SENOKOT) 8.6 mg tablet Take 1 tablet by mouth as needed for constipat ion. sertraline (ZOLOFT) 25 mg tablet Take 25 mg by mouth daily. sotalol (BETAPACE) 80 MG tablet SOTALOL HCL (SOTALOL ORAL) Take by mouth. Pt states taking 1 pill in the AM and 1/2 pill in the PM white petrolatum (AQUAPHOR HEALING) 41 % ointment Apply topically daily. No current facility-administered medications for this visit. ALLERGIES No Known Allergies Ash Stout, 09/20/2018 12:46 PM NDSKEEPER documented in this encounter Plan of Treatment Care Team Description Date Type Specialty Andrzej Gama DO [address] [address] [phone] 04/17/2020 Office Visit Neurology documented as of this encounter Visit Diagnoses Diagnosis Mild cognitive impairment Mild cognitive impairment, so stated documented in this encounter
--- OUTSIDE RECORDS SUMMARY | 2019-12-22 20:29 | XMS REPORT | Encounter Summary ---
Author Author [facility] Organization [facility] Address Unknown Phone Unavailable Care Team Providers Care Photostat Operator Name Role Phone Laura Lee PCP Reason for Visit * Psychiatric (Routine) Referred By Contact Referred To Contact Status Reason Specialty Diagnoses / Procedures Ash Stout MD No Forwarding Address John Coughlin, PhD [address] [place] [id number] Closed Service Not Psychology / Diagnoses Available In-House Neuropsychology Mild cognitive impairment Encounter Details Care Team Description Date Type Department Ash Stout MD No Forwarding Address John Coughlin, PhD [address] [place] [address] [id number] Mild cognitive impairment 08/28/2018 Initial consult [facility] [address] [place] [phone] Social History Date Tobacco Use Types Packs/Day Years Used Never Smoker Smokeless Tobacco: Never Used Drinks/Week oz/Week Comments Alcohol Use No Sex Assigned at Date Recorded Not on file Industry Job Start Date Occupation Not on file Not on file Not on file Travel End Travel History Travel Start No recent travel history available. documented as of this encounter Progress Notes * John Coughlin, PhD - 08/28/2018 9:00 AM CASHIER WRAPPER CONFIDENTIAL Patient: Bettina Dean : 1935 Date(s) of Consultation: 08/28/18 Date of Report: 08/28/18 Referral Source: Ash Stout M.D., [facility], [facility]. CONSULTANTS: John Coughlin, Ph.D., J.D., and Irene Murray M.S., Neuropsycholo gy, [facility], [facility], [address], [place], [place] [address]. NEUROPSYCHOLOGICAL SCREENING EVALUATION Referral: This patient is seen for neuropsychological testing at the request of Ash Stout M.D., in conjunction with her neurology evaluation, to assess cognitive status. She had previously been seen by the examiners for neuropsycho logical evaluation at the request of Duane Baum M.D. on June 08, 2017. Tests Administered: Dementia Rating Scale-2; Reitan-Sapphire Aphasia Screening E xam; [place] Naming Test; Sara Bingen of Living Scale; Folstein MMSE; Rolan lmaking Tests; Controlled Oral Word Association Test; Amaya Visual Organization Test; Gupta Depression Inventory-II; SHILO-7; PHQ-9. Background and Behavioral Observation: This patient is seen for neuropsychologi milli testing at the request of Ash Stout M.D., with continuing questions r egarding her cognitive status fourteen months following her prior neuropsycholog ical evaluation with the present examiners. Her son, who participated in the in itial interview today, reports that she will "more often" not recall conversatio ns brought up again the same day, but adds that this has not changed, in his opi nion, during the last year. Mrs. Dean describes her memory functioning toda y as "pretty good," an assessment not generally shared by her son, but, it is no taran, her son, who lives in [place], is admittedly not as involved in her care as the patient's daughter, who also lives in [place], [place], where the patien t has resided, in an assisted living facility, since April,. The precipit ating event was the observation that the patient, a who lived alone, was n eglecting her bills. Her neurology evaluation last year, initially with Dr. Kavitha Baum followed this observation and other concerns of family members. Adolfo Dean has ceased driving and her bills are now managed by a daughter, and her medications are dispensed by staff at the assisted living facility where she resides. She continues to read, including reading local twice-weekly [employer] newspaper, as confirmed by her son, and the patient reports that, when she st arts reading something, sets it aside, and resumes reading it later the same day , she does not have to start over but can start somewhere near the place she lef t off reading. There are no reports of changes in emotional lability and no repo rts of auditory, visual or olfactory hallucinations, but significant depression, based on the patient's responses, was noted during the prior evaluation, which was conducted a few weeks after she moved from her house to her present residenc . Mrs. Dean reports no problems with manual fine motor coordination, but mild resting tremor is observed with her R hand. No evidence of intentional tremor i s observed in her writing or drawing. She reports no hearing problems, no diplo karrie and no problems with olfactory sensitivity. She reports no recent dizziness or syncope and continuing mild balance problems while walking, although she does not use a cane or walker and reports no recent falls. Mrs. Dean arrived at the office at the scheduled appointment time, accompani ed by her son, Mr. Mario Dean, who drove from her residence in [facility] this morning. She was alert and appeared to be oriented, but did not appe ar to have good recall of her prior evaluation meeting with either examiner on 2016, which took place in a different building at the [facility]. She exhibited no conspicuous evidence of expressive or receptiv e communication deficits in conversation and her responses to questions are gene rally direct and appropriate, without evidence of psychotic ideation or distorte d thought processing. She appeared to understand and accept the rationale for t he testing and was able to complete the evaluation in a single morning session. She did not appear to have any recall of the testing which she completed during the May, evaluation, although it was essentially replicated during t he present evaluation. She required very little repetition of task instructions and does not repeat herself in conversation. It is noted that, while her affect was generally characterized as "bland or flat" during the May, evalu ation, her affect could generally be described as normal today. She was, occasi onally, somewhat impulsive in her approach to the testing, but not to an extent that her overall performance appears to be significantly affected. 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 As previously noted, she has a twin sister rep ortedly diagnosed with Alzheimer's disease, an older sister diagnosed with Alzhe dariel's disease, and a brother reportedly exhibiting symptoms of Alzheimer's dise ase. Today she states that a "sister of Alzheimer's and a sister from complications from mild cognitive disorder." She is a nonsmoker and consumes no alcohol. Medication regimen includes Current Outpatient Prescriptions on File Prior to Visit Medication Sig Dispense Refill benzonatate (TESSALON) 100 MG capsule Take 100 [...] (ARICEPT) 10 MG tablet 1 tab daily 30 tablet 11 famotidine (PEPCID) 20 MG tablet Take 20 [...] Apply topically daily. No current facility-administered medications on file prior to visit. This patient's medications are administered by staff at the assisted living [facility] where she has resided since April, in [place], [place]. Social/Education/Vocational History: Social history has not changed significant ly since the prior evaluation, except for the fact that she has now lived in the same assisted living facility for 1 1/2 years. Mrs. Dean reports that she participates in activities at her residence facility and also indicates that she continues to enjoy reading, including the twice weekly [place], [place] newspa per. Test Results: (1) Total score for the Dementia Rating Scale-2 (127) is slightly above the cut off associated with a mild cortically-based dementia, but is also slightly highe r than the total score obtained by this patient during the May, neuro psychological evaluation (123). During the present testing, however, this patie nt performs in the moderately-impaired range for the short-term memory subtest a nd in the low average range for the response initiation/perseveration subtest. (2) Aphasia Screening exam indicates no dysarthria, dyslexia, ideomotor apraxia or word-finding errors in a confrontational naming task. Writing to dictation a nd without direction are performed without difficulty and one-step oral and writ ten calculations are accurate. There are no left-right orientation errors in res ponse to oral or written commands and two-dimensional constructions are executed without orientation, distortion, or intrusion errors, but with one omission err or, and without evidence of intentional tremor. Except for the single omission error, this performance replicates her performance during the May, ev aluation. (3) Performance on the [place] Naming Test (56/60) indicates no impairment of wo rd-finding in a confrontational object-naming task and is not significantly diff erent from the prior testing (59/60). (4) Results of the Sara protocol indicate this patient is functioning in the superior range of general intelligence (est. BR=071), at a level which is at le ast commensurate with her educational/vocational background, with recognition vo cabulary (62nd percentile) and verbal abstract reasoning ability (96th percentil e) in the average and high average range for her age group. Abstraction quotient , adjusted for age and level of formal education, is in the superior range (120) . These results are not consistent with cortically-based impairment of cognitive functions and are, in fact, routinely higher than those obtained during the May evaluation. (5) Performance on Trails A (54th percentile) is in the average range for this patient's age group. Performance on Trails B is in the low average range (18th p ercentile) for this patient's age group. These results indicate no impairment of the ability to successively alternate response sets and, while Trails B perform ance is identical to the results obtained during the May, evaluation, performance for Trails A is actually better than performance was for this serial visual tracking task during the prior evaluation. (6) Performance on the Amaya Visual Organization Test () indicates no imp airment of the ability to integrate visually meaningful stimuli and is not signi ficantly different from her performance for this task during the 2016 evaluation (). (7) Performance for the Controlled Oral Word Association Test (FAS total=35) is in the low average range for this patient's age and education (Mean=42; SD=12.1 ). Semantic (naming; 13) fluency is also in the low average range for this mimi ent's demographic (Mean=16.3; SD=4.3). (8) Total score for the MMSE (28/30) is in the average range for this patient's age and level of formal education ( Mean=27; SD=0.9), with one error for the ree recall items. This performance essentially duplicates this patient's MMSE r esults for the May, evaluation. (9) This patient's responses to the Gupta Depression Inventory-II, the SHILO-7 and the PHQ-9 indicate no evidence of clinically significant depression and/or anxi ety. Suicidal ideation is explicitly denied by this patient. It is noted that t his patient's own responses to these three protocols during the May, evaluation were much different and indicated clinically significant depression, including anhedonia and feelings of hopelessness. Conclusions: Results of the testing do suggest mild cognitive disorder based on variable problems with short-term memory functioning and some instances of impu lsive behavior exhibited during the testing, but, overall, this patient demonstr ates relative stability of cognitive functions during the interim period since t he prior testing and, in many instances, measurable improvement. This patient i s well-oriented, exhibits no conspicuous impairment of expressive and receptive speech functions, no impairment of visuospatial functions, and no change in the ability to switch response sets when required, an ability which is particularly sensitive to the effects of a progressive cortically-based dementia. It is also notable that this patient's assessed level of general intelligence is notably s ignificantly higher than when assessed in May,, with a corresponding increase in assessed verbal abstract reasoning ability, results which directly a nd strongly contradict any hypothesis regarding a progressive cortically-based d ementia. A possible explanatory factor is the absence of any symptoms of depres lor as endorsed by this patient today, in marked contrast to the symptoms of at least mild clinical depression which she endorsed during May,. It c an be speculated that her prior depression was in part attributable to her perce ived displacement at that time, during the month immediately following her move to the assisted living facility where she continues to live, and that this patie nt's depression at that time had an effect on her motivation and test performanc e, although a pseudodementia, as a tentative diagnosis, was noted by the present examiners in the prior evaluation report. It appears that this patient's basic care and safety needs are being met in a reliable manner in her present living circumstances, with the support and assistance of her children. Diagnostic Impression: Mild cognitive disorder, not consistent with Alzheimer's disease for this 83-year-old patient. ICD-10-G31.84. Treatment Recommendations: No treatment recommendations are made on the basis o f the present evaluation, which in many respects documents significant improveme nt in cognitive status or stability of cognitive functions during the 14-month i nterim since the last neuropsychological evaluation was completed. This patient , by testing and history, exhibits variable impairment of short-term memory func tions, but most cognitive functions as tested are either stable or improved sinc e the prior evaluation, a result which contradicts any hypothesis regarding a pr ogressive neurodegenerative disease. It is also noted that this patient current ly denies any significant symptoms of depression while, at the time of the prior testing, coincidentally occurring the month after moving into the [facility] facility where she still resides, she had acknowledged significant depression symptoms. It is apparent, from her son's description of her current living env ironment, that this patient's basic care and safety needs are being met in a rel iable manner and that she is not socially isolated at this time. It is also not ed that, one of the behaviors precipitating her neurology evaluation last year w as her neglect of her routine bills, an observation that could partially be attr ibutable to depression; it was noted today that written and oral calculations ar e intact. No additional testing is recommended at this time. John Coughlin, Ph.D., J.D. Licensed Psychologist, [place], [place] & [employer] José Miguel ElkinsS. Car Manager Time spent by provider in applicable professional components to support billing of CPT code 83942 is 291 minutes. Time spent by provider in applicable professional components to support billing of CPT code 14632 is 98 minutes. IER WRAPPER documented in this encounter Plan of Treatment Care Team Description Date Type Specialty Andrzej Gama, [address] [place] [address] [phone] 04/17/2020 Office Visit Neurology documented as of this encounter Visit Diagnoses Diagnosis Mild cognitive impairment Mild cognitive impairment, so stated documented in this encounter
--- OUTSIDE RECORDS SUMMARY | 2019-12-22 20:29 | XMS REPORT | Encounter Summary ---
Author Author [facility] Organization [facility] Address Unknown Phone Unavailable Care Team Providers Care Certified Dietary Manager Name Role Phone Laura Lee PCP Reason for Referral * Consultation (Routine) Referred By Contact Referred To Contact Status Reason Specialty Diagnoses / Procedures Fred Man MD No Forwarding Address Dale Ramos MD no forwarding address Closed Specialty Services Neurology Diagnoses Required Memory difficulties Encounter Details Care Team Description Date Type Department Fred Man MD No Forwarding Address Memory difficulties (Primary Dx) 03/24/2017 Orders Only [facility] [address] [place] [address] Social History Date Tobacco Use Types Packs/Day Years Used Never Smoker Smokeless Tobacco: Never Used Drinks/Week oz/Week Comments Alcohol Use No Sex Assigned at Date Recorded Not on file Industry Job Start Date Occupation Not on file Not on file Not on file Travel End Travel History Travel Start No recent travel history available. documented as of this encounter Plan of Treatment Care Team Description Date Type Specialty Andrzej Gama DO [address] [facility] [address] [place] [address] [phone] 04/17/2020 Office Visit Neurology Order Schedule Name Type Priority Associated Diag noses Ordered: 03/24/2017 Amb Referral To Neurology Outpatient Routine Antoni ry difficulties Referral documented as of this encounter Visit Diagnoses Diagnosis Memory difficulties Memory loss documented in this encounter
--- OUTSIDE RECORDS SUMMARY | 2019-12-22 20:29 | XMS REPORT | Encounter Summary ---
Author Author [facility] Organization [facility] Address Unknown Phone Unavailable Care Team Providers Care Industrial Safety And Health Specialist Name Role Phone Laura Lee PCP Reason for Visit * Reason Comments Medication Problem Encounter Details Care Team Description Date Type Department Andrzej Gama, DO [address] [place], [place] [id number] Medication Problem 05/11/2019 Telephone [facility] [address] [place] [address] Social History Date Tobacco Use Types Packs/Day [...] encounter Miscellaneous Notes * Telephone Encounter - Jimena Vale MA - 05/29/2019 8:36 AM CDT Jose had left me another vcml stating the patient was experience dizziness. I called the assisted and spoke to yolande and advise MMV wants them to eliminat e the am dose and see what happens/ call with an update. She verbalized understa nding and will relay message. * Telephone Encounter - Jimena Vale MA - 05/11/2019 10:36 AM CDT Patient daughter called and said she took the patient to cardiology appt on Mond ay and that the doctor told them to let COLIN know her HR was 45bpm. Please advise * Telephone Encounter - Jimena Vale MA - 05/11/2019 10:30 AM CDT Patient daughter called and advised CD/LD is making the patient loopy and dizzy. She wants to know should they reduce this med or DC? Please advise * Telephone Encounter - Jimena Vale MA - 05/11/2019 9:31 AM CDT Jose with [facility] called to advise since the patient started taki ng CD/LD she's complained of dizziness. Please advise documented in this encounter Plan of Treatment Care Team Description Date Type Specialty Andrzej Gama, [address] [place] [address] [phone] 04/17/2020 Office Visit Neurology documented as of this encounter Visit Diagnoses Not on filedocumented in this encounter
--- OUTSIDE RECORDS SUMMARY | 2019-12-22 20:29 | XMS REPORT | Encounter Summary ---
Author Author [facility] Organization [facility] Address Unknown Phone Unavailable Care Team Providers Care Title Processor Name Role Phone Laura Lee PCP Reason for Referral * Psychiatric (Routine) Referred By Contact Referred To Contact Status Reason Specialty Diagnoses / Procedures Duane Baum MD [address] [facility] [address] [place] [address] John Coughlin, PhD [address] [place] [address] Closed Service Not Psychology / Diagnoses Available In-House Neuropsychology Late onset Alzheimer's disease without behavioral disturbance (HCC) Reason for Visit * Consultation (Routine) Referred By Contact Referred To Contact Status Reason Specialty Diagnoses / Procedures Fred Man MD No Forwarding Address Dale Ramos MD no forwarding address Closed Specialty Services Neurology Diagnoses Required Memory difficulties Encounter Details Care Team Description [place] [address] [place], [place] [address] Late onset Alzheimer's disease without b ehavioral disturbance; Tremor, essential; 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) 04/28/2017 Office Visit [facility] Neurol ogy [address] [place] [address] Social History Date Tobacco Use Types Packs/Day [...] Signs Reading Time Taken Comments Vital Sign 115/60 04/28/2017 9:56 AM CDT Blood Pressure 46 04/28/2017 9:56 AM CDT Pulse - - Temperature - - Respiratory Rate - - Oxygen Saturation - - Inhaled Oxygen Concentration 60.7 kg (133 lb 14.4 oz) 04/28/2017 9:56 AM CDT Weight 170.2 cm (5' 7") 04/28/2017 9:56 AM CDT Height 20.97 04/28/2017 9:56 AM CDT Body Mass Index documented in this encounter Progress Notes * Duane Baum MD - 04/28/2017 10:15 AM CDT [facility] Date: 04/28/17 Patient Name: Bettina Dean Date of : 1935 Chief Complaint: Encounter Diagnoses Name Primary? 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 Dean is an [age]-year-old right-handed woman who was seen today in follow -up regarding her progressive cognitive decline. The history was obtained from the patient, 2 of her children and her old records. The patient does not feel that she has significant memory impairment, however, h er family notes that over the last 18 months, they have seen a significant handy e in her cognition. She was unable to manage her personal finances and failed t o pay utility bills for several months. She also failed to properly pain in her taxes. Previously, she has handled these responsibilities without difficulty. Family also noted that she was no longer able to deal with her male and was not able to take her medications correctly. Additionally they noted that she would often repeat herself and conversations. She displayed a decline in her personal hygiene and was no longer able to manage her home. She seemed unable to deal with normal audio visual aids director such as laundry and housecleaning. Her family has moved her to assisted living where she has lived for the last few weeks. She no longer drives. There is no history of any periods of anxiety or thought disorder. The family does report that she has been much more withdrawn and less socially engaged. She will sleep off and on during the day and night. Prior to moving to assisted living, she was not preparing meals or eating regu larly. There is no history of any tearfulness. In December, she had MR imaging of the brain. The study showed significant gl obal atrophy of the brain with mild chronic small vessel ischemic changes. A re cent TSH and B-12/folate level were normal. She saw Dr. Man about 6 week s ago who felt that she probably had Alzheimer's disease and initiated donepezil 5 mg daily. She has tolerated the medication with no side effects. She does have a strong family history of Alzheimer's disease which affected her mother, and older sibling and her twins sister. Review of Systems: On 10 point review of systems, the family feels that she is depressed and has hurst d weight loss. She also has a past history of glaucoma, tinnitus and chronic na simona congestion. She is being treated for atrial fibrillation. She has a past h istory of constipation and esophageal reflux. She also has a tremor in the uppe r extremities which is variable. The tremor is most apparent with use of the hurst nds. There is a strong family history of tremor, affecting her mother and other siblings. Additionally, there has been a change in her gait, characterized by slowness and hesitancy. There have been no falls. Examination: Vitals: 04/28/17 0956 BP: 115/60 Pulse: (!) 46 On examination the patient was alert, fluent and cooperative. She scored 27/30 on the MMSE. Cranial nerve examination was normal. Motor examination revealed no rmal strength and tone in all extremities. She displayed a slight action tremor . Sensory exam was normal. Deep tendon reflexes were 2/5 and symmetrical. Gait was slow, wide based with small steps. She was unable to tandem walk. Rapid alt ernating movements were symmetric. Assessment & Plan: SNOMED CT(R) 1. Late onset Alzheimer's disease without behavioral disturbance PRIMARY DEGENE RATIVE DEMENTIA OF THE ALZHEIMER TYPE, SENILE ONSET, UNCOMPLICATED donepezil (AR ICEPT) 10 MG tablet Ambulatory referral to Neuropsychology 2. Tremor, essential ESSENTIAL TREMOR 3. 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 Dean has shown significant cognitive decline over the last 18-24 months . In light of her strong family history of Alzheimer's disease and global atrop hy seen on MR imaging, I suspect that she has Alzheimer's disease. However, her MMSE performance is considerably better than her functional performance in life, raising the question of some degree of pseudodementia contributing to her impa irment. I discussed this at length with her family. The family has already arranged for power of color card maker for both financial and med ical decisions and are now managing her finances. I also supported the decision that she is no longer driving. Today, I have increased her dose of donepezil to 10 mg daily and I have referred her to Dr. John Coughlin, for a comprehensive ne uropsychological assessment, which may help clarify her cognitive abilities vers us cognitive decline related to depression. She also has evidence of tremor, consistent with familial essential action tremo r. We reviewed that disorder, discussing its clinical manifestations and treatm ent. We have agreed that the tremor is mild and that no treatment is indicated. I suspect that her gait disorder is related to cerebellar degeneration with tr uncal ataxia. At this point, she is not falling and has no significant limitati ons and I have recommended no further assessment or management change. I plan t o see her again in about 8 weeks. No Known Allergies Past Medical History: Diagnosis [...] Baum MD, FAAN Director, [facility] [address] [address] (phone) [phone] (fax) documented in this encounter Plan of Treatment Care Team Description Date Type Specialty Andrzej Gama, [facility] [address] [address] [phone] 04/17/2020 Office Visit Neurology Order Schedule Name Type Priority Associated Diag noses Ordered: 04/28/2017 Ambulatory referral to Outpatient Routine Late on set Alzheimer's Neuropsychology Referral disease without behavioral disturbance documented as of this encounter Visit Diagnoses Diagnosis Late onset Alzheimer's disease without behavioral disturbance (HCC) Tremor, essential Essential and other specified forms of tremor 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
--- OUTSIDE RECORDS SUMMARY | 2019-12-22 20:29 | XMS REPORT | Encounter Summary ---
Author Author [facility] Organization [facility] Address Unknown Phone Unavailable Care Team Providers Care Public Health Sanitarian Technician Name Role Phone Laura Lee PCP Reason for Referral * Psychiatric (Routine) Referred By Contact Referred To Contact Status Reason Specialty Diagnoses / Procedures Ash Stout MD No Forwarding Address John Coughlin, PhD [address] [place] [address] Closed Service Not Psychology / Diagnoses Available In-House Neuropsychology Mild cognitive impairment Reason for Visit * Reason Comments Follow-up wants to order another alzh eimer test Encounter Details Care Team Description Date Type Department Ash Stout MD No Forwarding Address Mild cognitive impairment (Primary Dx); Tremor, essential; 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) 06/19/2018 Office Visit [facility] [address] [facility] [address] [place] [address] Social History Date Tobacco Use Types Packs/Day [...] Signs Reading Time Taken Comments Vital Sign 134/55 06/19/2018 1:08 PM CDT Blood Pressure 53 06/19/2018 1:08 PM CDT Pulse - - Temperature - - Respiratory Rate - - Oxygen Saturation - - Inhaled Oxygen Concentration 68 kg (150 lb) 06/19/2018 1:08 PM CDT Weight 170.2 cm (5' 7") 06/19/2018 1:08 PM CDT Height 23.49 06/19/2018 1:08 PM CDT Body Mass Index documented in this encounter Progress Notes * Ash Stout MD - 06/19/2018 1:30 PM CDT NEUROLOGY CONSULTATION Patient Name: Bettina Dean : 1935 PCP: Laura Lee MD Date of service: 06/19/2018 See dictation HISTORY OF PRESENT ILLNESS/EXAM/IMPRESSION/PLAN: Bettina Dean returned in follow-up on 06/19/2018 in the presence of her so n from [place] for continued evaluation of cognitive decline, unsteady gait and essential tremor. She was last seen in November. At that time, she had undergone neuropsychological battery with Dr. Coughlin. At that time, there was difficulty in multiple domains but not consistent with progressive dementia. She is on done pezil 10 mg daily for cognitive impairment. Her gait instability remains about the same. This is thought to be generalized degeneration. She also has mild es sential tremor. Occasionally she will become tremulous in the right hand partic ularly when she is talking. This is distractible. This does not appear to be P laron's. She does have a history of atrial fibrillation, breast cancer, depression, diver ticulosis, transient ischemic attack. Her medications remain the same. She is more involved with social activities. She is in a fpc communit y. She is not driving. She does not cook other than the microwave. The of and is disabled. She still has a little bit of clutter. She does do repetitive mo vements such as scratching her face. This was not apparent today and my intervi ew with her. However, she was fairly focused I will were talking about. I susp ect that this has something to do with distractibility for her. On examination, she is awake and alert. She was oriented to time and place. Casey espinal remembered 2 of 3 words after 3 minutes. She is able name, repeat, follow dir ections. She had some difficulty spelling world backward. She knew about [employer] events. She was somewhat argumentative while we talked about topics that she did not like such as her driving. I told her that she cannot drive. Cranial n erve function is normal. Motor strength is intact. Variable tremulousness of t he right hand, not pill-rolling. It stopped when I distracted her. Mild intent ion tremor right groin left upper extremity. No cogwheel rigidity. Mild gait a taxia particular making a turn otherwise normal stance and dermal size steps. N o tremor during walking. There may be some cognitive decline which we can address with a another neuropsy chometric battery which they are willing to do. We will get that done. She mckenzie l continue donepezil 10 mg daily for now. She does not require any intervention regarding her tremor which is fairly mild. I told her that she cannot drive. If the repetitive activities become more intrusive, consideration would be for a mild anti-dopamine medication. For now, they do not wish to do so. I agree. I will see her in 2 months Vitals: 06/19/18 1308 BP: 134/55 Pulse: (!) 53 Weight: 68 kg (150 lb) Height: 1.702 m (5' 7") Body mass index is 23.49 kg/m. REVIEW OF SYSTEMS A 12 system [...] visit. ALLERGIES No Known Allergies Ash Stout, 06/19/2018 1:49 PM documented in this encounter Plan of Treatment Care Team Description Date Type Specialty Andrzej Gama, [address] [place] [address] [phone] 04/17/2020 Office Visit Neurology Order Schedule Name Type Priority Associated Diag noses 1 Occurrences starting 06/19/2018 until 12/18/2018 Amb Referral To Outpatient Routine Mild cognitive impairment Neuropsychology Referral documented as of this encounter Visit Diagnoses Diagnosis Mild cognitive impairment Mild cognitive impairment, so stated Tremor, essential Essential and other specified forms of tremor 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
--- OUTSIDE RECORDS SUMMARY | 2019-12-22 20:29 | XMS REPORT | Encounter Summary ---
Author Author [facility] Organization [facility] Address Unknown Phone Unavailable Care Team Providers Care Diagram Clerk Name Role Phone Laura Lee PCP Encounter Details Care Team Description Date Type Department Fred Man MD No Forwarding Address Memory loss 03/24/2017 Lab [facility] [phone] Social History Date Tobacco Use Types Packs/Day [...] Date Type Specialty Andrzej Gama DO [address] [address] [phone] 04/17/2020 Office Visit Neurology documented as of this encounter Procedures Comments Procedure Name Priority Date/Time Associated Diag nosis THYROID STIMULATING Routine 03/24/2017 Memory los s HORMONE 4:10 PM CDT B12/FOLATE Routine 03/24/2017 Memory loss 4:10 PM CDT documented in this encounter Results * Thyroid Stimulating Hormone (03/24/2017 4:10 PM CDT) Thyroid 1.35 0.47 - 4.68 uIU/mL [facility] Hormone LABORATORIES Specimen Performing Organization Address City/State/Zipcode Ph one Number [address] [address] LABORATORIES * B12/Folate (03/24/2017 4:10 PM CDT) VITAMIN B12 548 239 - 931 pg/mL [facility] Folate 7.8 3.4 - 20.0 ng/mL [facility] Specimen Performing Organization Address City/State/Zipcode Ph one Number [address] [address] LABORATORIES documented in this encounter Visit Diagnoses Diagnosis Memory loss documented in this encounter
--- OUTSIDE RECORDS SUMMARY | 2019-12-22 20:29 | XMS REPORT | Encounter Summary ---
Author Author [facility] Organization [facility] Address Unknown Phone Unavailable Care Team Providers Care Indian Trader Name Role Phone Laura Lee PCP Encounter Details Care Team Description [place] [address] [facility] [address] [place] [address] [phone] 05/04/2017 Telephone [facility] og [address] [address] Social History Date Tobacco Use Types Packs/Day [...] encounter Miscellaneous Notes * Telephone Encounter - Selma Swain MA - 05/04/2017 1:37 PM CDT Left vm relaying response * Telephone Encounter - Duane Baum MD - 05/04/2017 11:57 AM CDT I would suggest that they continue to monitor her weight. If it is continuing t o drop she should see her primary care physician. * Telephone Encounter - Selma Swain MA - 05/04/2017 10:51 AM CDT Pt's daughter reports that she is living at [facility] and they have n oted her to lose another 4 pounds and are not sure if this is due in part to dep ression. She will not see Dr. Coughlin for 2 more months but wondered if you might h ave any other recommendation....that she could pass along to the staff at her [facility]. Please advise documented in this encounter Plan of Treatment Care Team Description Date Type Specialty Andrzej Gama, [address] [place] [address] [phone] 04/17/2020 Office Visit Neurology documented as of this encounter Visit Diagnoses Not on filedocumented in this encounter
--- OUTSIDE RECORDS SUMMARY | 2019-12-22 20:29 | XMS REPORT | Encounter Summary ---
Author Author [facility] Organization [facility] Address Unknown Phone Unavailable Care Team Providers Care Registrar College Or University Name Role Phone Laura Lee PCP Reason for Referral * Consultation (Routine) Referred By Contact Referred To Contact Status Reason Specialty Diagnoses / Procedures Laura Lee MD [address] [place] [address] [facility] [address] [facility] [address] [place] [address] Closed Specialty Services Neurology Diagnoses Required Stroke (HCC) Encounter Details Care Team Description Date Type Department Provider, Not In System Stroke (HCC) (Primary Dx) 03/10/2017 Transcribe [facility] Neurol ogy Orders [address] [facility] [address] [place], [place] [id number] Social History Date Tobacco Use Types Packs/Day Years Used Never Assessed Sex Assigned at Date Recorded Not on file Industry Job Start Date Occupation Not on file Not on file Not on file Travel End Travel History Travel Start No recent travel history available. documented as of this encounter Plan of Treatment Care Team Description Date Type Specialty Andrzej Gama DO [address] [facility] [address] [place], [place] [id number] 04/17/2020 Office Visit Neurology Order Schedule Name Type Priority Associated Diag noses Ordered: 03/10/2017 Amb Referral To Neurology Outpatient Routine Stro ke (HCC) Referral documented as of this encounter Visit Diagnoses Diagnosis Stroke (HCC) Unspecified cerebral artery occlusion w ith cerebral infarction documented in this encounter
--- OUTSIDE RECORDS SUMMARY | 2019-12-22 20:29 | XMS REPORT | Encounter Summary ---
Author Author [facility] Organization [facility] Address Unknown Phone Unavailable Care Team Providers Care Medical Records Library Professor Name Role Phone Laura Lee PCP Reason for Visit * Reason Comments Medication questions Encounter Details Care Team Description Date Type Department Andrzej Gama, [address] [id number] Medication questions 06/08/2019 Telephone [facility] ogy [address] [facility] [address] [place] [address] Social History Date Tobacco Use Types Packs/Day [...] Telephone Encounter - Jimena Vale MA - 06/08/2019 9:01 AM CDT Per MJS - cd/ld side effects; Please call the daughter. It may take a week to see a change. I called mica and was able to leave a message only. documented in this encounter Plan of Treatment Care Team Description Date Type Specialty Andrzej Gama DO [address] [facility] [address] [place] [address] [phone] 04/17/2020 Office Visit Neurology documented as of this encounter Visit Diagnoses Not on filedocumented in this encounter
--- OUTSIDE RECORDS SUMMARY | 2019-12-22 20:29 | XMS REPORT | Encounter Summary ---
Author Author [facility] Organization [facility] Address Unknown Phone Unavailable Care Team Providers Care Shot Core Drill Operator Helper Name Role Phone PCP Unavailable Encounter Details Care Team Description Date Type Department Encounter for consultation 03/16/2017 Imaging [facility] Virtual Revenu e Appointment Location Social History Date Tobacco Use Types Packs/Day Years Used Never Assessed Sex Assigned at Date Recorded Not on file Industry Job Start Date Occupation Not on file Not on file Not on file Travel End Travel History Travel Start No recent travel history available. documented as of this encounter Plan of Treatment Care Team Description Date Type Specialty Andrzej Gama, DO [address] [address] [phone] 04/17/2020 Office Visit Neurology documented as of this encounter Procedures Comments Procedure Name Priority Date/Time Associated Diag nosis MRI HEAD OUTSIDE IMAGES Routine 03/16/[address] for FOR PACS 10:47 AM CDT consultation documented in this encounter Results * MRI Outside images for PACS Head (03/16/2017 10:47 AM CDT) Specimen Performing Organization Address City/State/Zipcode Ph one Number [place] documented in this encounter Visit Diagnoses Diagnosis Encounter for consultation documented in this encounter
--- OUTSIDE RECORDS SUMMARY | 2019-12-22 20:29 | XMS REPORT | Encounter Summary ---
Author Author [facility] Organization [facility] Address Unknown Phone Unavailable Care Team Providers Care Spring Machine Operator Name Role Phone Laura Lee PCP Reason for Visit * Psychiatric (Routine) Referred By Contact Referred To Contact Status Reason Specialty Diagnoses / Procedures Duane Baum MD [address] [address] [place] [address] [place] [id number] Closed Service Not Psychology / Diagnoses Available In-House Neuropsychology Late onset Alzheimer's disease without behavioral disturbance (HCC) Encounter Details Care Team Description Date Type Department John Coughlin, PhD [address] [place] [address] [phone] Late onset Alzheimer's disease without b ehavioral disturbance; Pseudodementia 06/08/2017 Initial consult [facility] [address] [place] [address] Social History Date Tobacco Use Types Packs/Day [...] Progress Notes * John Coughlin, PhD - 06/08/2017 1:00 PM CDT CONFIDENTIAL Patient: Bettina Dean : 1935 Date(s) of Consultation: 06/08/17 Date of Report: 06/08/17 Referral Source: Duane Baum M.D., [facility]. CONSULTANTS: John Coughlin, Ph.D., J.D., and Irene Murray M.S., Neuropsycholo , [facility], [facility], [address], [place], [place] [address]. NEUROPSYCHOLOGICAL SCREENING EVALUATION Referral: This patient is seen for neuropsychological testing at the request of Duane Baum M.D., in conjunction with her neurology evaluation, to assess cognit sandra status. Tests Administered: Dementia Rating Scale-2; [place] Aphasia Screening Exam; [place] Naming Test; Sara [place] of Living Scale; Folstein MMSE; Rolan lmaking Tests; Amaya Visual Organization Test; Gupta Depression Inventory-II; GA D-7; PHQ-9. Background and Behavioral observation: This patient is seen for neuropsycholog ical testing at the request of Duane Baum M.D., with a history of cog nitive decline reported by family members during the last 18 months. Mrs. Fabricio peraza has been a for the last four years, living alone in her house until 2016, when family members moved her into an assisted living facility in [place], [place]. In the months preceding the move, according to family member s' reports, she had lost weight, failed to pay her bills and was not taking her medications regularly. She was observed to neglect her personal hygiene and rou thony ADLs, like laundry and housecleaning. According to her son, Mario Dean , who was present today, the patient's daughter observed her to be driving errat ically in and out of her aldo and through a stop sign. She has ceased driving on physician's advice. Her son reports that, in the assisted living facility where she has resided since April 19, 2017, she has generally been unmotivated and has required prompting by staff for execution of routine ADLs, including hygiene, and she has reportedly exhibited a poor appetite and social withdrawal. There a re no reports of auditory, visual or olfactory hallucinations. Family have reported the patient repeating herself in conversation. Today, Mrs. Dean, when questioned about memory functioning, describes it as "pretty goo d, not a hundred percent." She denies problems with word-finding in conversatio n and her son, when asked about her capacity to recall recent conversations, sta jennifer "not always, sometimes." He lives in [place] and, although he is general p ower of customer services coordinator for his mother, conveyed to him in December, he indicates that he doesn't have as much opportunity to observe his mother as do his siblings. Mrs. Dean denies problems with keeping track of appointments ("No, because I wri te them on my calendar.") and denies significant problems with misplacing object s. During the initial interview this afternoon it was apparent that she was oft en in disagreement with her son regarding descriptions of her cognitive deficits and behavior while she was living in her house. Mrs Dean reports no problems with fine motor coordination and dresses hersel f, including earrings. She reports no hearing impairment and does not use heari ng aids. There is no reported problem with olfactory sensation. Mrs. Dean reports no problems with dizziness, syncope or falls, but her son reports that s he apparently fainted once in December and was briefly admitted to her local ED for symptoms of atrial fibrillation. Mrs. Dean arrived at the office at the scheduled appointment time, accompani ed by her son, Mr. Mario Dean, who drove her to the office, is her general p ower of customer services coordinator, and participated in the initial interview . Mrs. Dean was alert and appeared generally oriented and exhibited no conspicuous evidence of expressive or receptive speech deficits in conversation. Responses to questions were generally direct and appropriate, without evidence of psychotic ideation or distorted thought processing. She appeared to understand the rationale for the testing and was able to complete the evaluation in a single afternoon session. She did not repeat herself in conversation and only occasionally required rep etition of task instructions. Her affect could be generally described as bland or flat. 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 According to her son, Mrs. Dean has a twin sister, sascha donovan,who was diagnosed with Alzheimer's disease, an older sister diagnosed with Al zheimer's disease, and a brother with symptoms of Alzheimer's disease. The mimi ent's mother was also reportedly diagnosed with Alzheimer's disease. Mrs. Manju kelly is a nonsmoker and non-drinker. Medication regimen includes Current Outpatient Prescriptions on File Prior to Visit Medication Sig Dispense Refill aspirin 325 MG tablet Take 81 mg by mouth daily. benzonatate (TESSALON) 100 MG capsule Take 100 mg by mouth 2 (two) times a d ay. CALCIUM CARBONATE (CALCIUM 500 ORAL) Take by mouth. cholecalciferol, vitamin D3, (VITAMIN D3) 2,000 unit Tab Take by mouth. docusate calcium (SURFAK) 240 mg capsule Take 240 mg by mouth as needed for constipation. docusate sodium (COLACE) 100 MG capsule Take 100 mg by mouth 2 (two) times a day. donepezil (ARICEPT) 10 MG tablet 1 tab daily 30 tablet 11 famotidine (PEPCID) 20 MG tablet Take 20 mg by mouth at bedtime. fluticasone (FLONASE) 50 mcg/actuation nasal spray hydroCHLOROthiazide (HYDRODIURIL) 25 MG tablet Take 25 mg by mouth daily. ipratropium (ATROVENT) 0.03 % nasal spray Use 2 sprays in each nostril every 12 (twelve) hours. levocetirizine (XYZAL) 5 MG tablet Take 5 mg by mouth every evening. NAPROXEN ORAL Take 220 mg by mouth every 4 (four) hours as needed. omeprazole (PRILOSEC) 20 MG capsule Take 20 mg by mouth daily. polyethylene glycol (MIRALAX) 17 gram/dose powder Take [...] AM and 1/2 pill in the PM torsemide (DEMADEX) 20 MG tablet Take 20 mg by mouth daily. white petrolatum (AQUAPHOR HEALING) 41 % ointment Apply topically daily. No current facility-administered medications on file prior to visit. Staff at the assisted living facility in [place], [place], where Mrs. Dean resides, are responsible for administration of her medication regimen. Social/Education/Vocational History: Mrs. Dean has been a for four years and has three children. 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 She states that she enjoys reading and reads the [employer], published twice weekly, but she cannot cite any re cent reading content when questioned during the interview. Test Results: (1) Total score for the Dementia Rating Scale-2 (123) is consistent with a mild cortically-based dementia, with performance for the Response Initiation/Perseve ration subtest in the moderately-impaired range for this patient's age group. P erformance for the memory subtest is in the mildly-impaired range, but performan ezra for the attention, construction and conceptualization subtests are in the av erage range. (2) Aphasia Screening exam indicates no dysarthria, dyslexia, ideomotor apraxia or word-finding errors in a confrontational naming task. Writing to dictation a nd without direction are performed without difficulty and one-step oral and writ ten calculations are accurate. There are no left-right orientation errors in res ponse to oral or written commands and two-dimensional constructions are executed without orientation, distortion, intrusion or omission errors and without evide nce of intentional tremor. (3) Performance on the [place] Naming Test (59/60) indicates no impairment of wo rd-finding in a confrontational object-naming task. (4) Results of the Sara protocol indicate this patient is functioning in the average range of general intelligence (est. SC=603), at a level which is commen surate with educational/vocational background, with recognition vocabulary (42nd percentile) in the low average range and verbal abstract reasoning ability (73rd percentile) in the high average range for her age group. Abstraction quotient, adjusted for age and level of formal education, is in the average range (111). These results are not consistent with cortically-based impairment of cognitive f unctions. (5) Total score for the MMSE (28/30) is in the above-average range for this pat ient's age and level of formal education ( Mean=27; SD=.9), with two errors for the three recall items and no orientation or backward serial seven errors. It i s noted that, when she met with Dr. Baum on April 28, 2017, she obtained a total MMSE score of 27/30. (6) Performance on Trails A (21st percentile) is in the low average range for t his patient's age group. Performance on Trails B is in the low average range (18 th percentile) for this patient's age group. These results indicate no impairmen t of the ability to successively alternate response sets. (7) Performance on the Amaya Visual Organization Test (26/30) indicates no imp airment of the ability to integrate visually meaningful stimuli. (8) This patient's responses to the Gupta Depression Inventory-II, the SHILO-7 and the PHQ-9 indicate clinically significant depression, including anhedonia, feel ings of hopelessness, . Suicidal ideation is explicitly denied by this patient. Conclusions: Results of the testing do not provide consistent evidence of a cortically-based progressive dementia. Although some of the testing results for this patient ind icate mild impairment of cognitive functions, much of the obtained test results are in the average range for this patient's age group, a finding which is not co nsistent with the reports of family members regarding this patient's functioning while living alone in her house prior to the recent move to an assisted living facility. The obtained test results, with few exceptions, are an insufficient b asis for a conclusion of a progressive dementia, such as Alzheimer's disease, de spite a behavioral history provided by family members which is consistent with a n AD diagnosis. It is noted, however, that with a reported history of observed cognitive deficits over a period of 18 months, lack of errors in orientation, ab sence of problems with confrontational naming, absence of expressive or receptiv e language problems, intact verbal abstract reasoning ability, intact visuospati al reasoning and intact ability to switch response sets contradicts the hypothes is of a cortically-based dementia. Based on the provided behavioral history, im pairment of most of the above functions would be anticipated in conjunction with an Alzheimer's-based dementia. These results, considered in conjunction with t his patient's responses with respect to questionnaire items related to depressio n and anxiety, and her continued withdrawal from social contact under changed li ving circumstances, suggest that a pseudodementia cannot be ruled out, despite a history provided by family members that strongly suggests a cortically-based de mentia. Continued monitoring by neurology of this perplexing case is strongly r ecommended. Diagnostic Impression: Pseudodementia, as tentative diagnosis. ICD-10-CM F68 .11 Mild depression. ICD-10-CM F32.9 Treatment Recommendations: Continued monitoring by neurology, given this patient's variable and contradicto ry symptomatic history and testing results. Treatment for depression, including individual counseling, to the extent availab le in this patient's present living circumstances. Repeat testing, after an interval of not less than four months, to determine nina nges in cognitive functioning from the present baseline which may indicate the p rogression or absence of progression of cognitive impairment. John Coughlin, Ph.D., J.D. Licensed Psychologist, [place], [place] & [facility], [place] [employer] Irene Murray, M.S. [employer] Time spent by provider in applicable professional components to support billing of CPT code 35029 is 243 minutes. Time spent by provider in applicable professional components to support billing of CPT code 72174 is 78 minutes. 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
--- OUTSIDE RECORDS SUMMARY | 2019-12-22 20:29 | XMS REPORT | Encounter Summary ---
Author Author [facility] Organization [facility] Address Unknown Phone Unavailable Care Team Providers Care Furnace Fitter Name Role Phone Laura Lee PCP Encounter Details Care Team Description Date Type Department María Enriquez MA 03/24/2017 Telephone [facility] [address] [place] [address] Social History Date Tobacco Use Types Packs/Day [...] encounter Miscellaneous Notes * Telephone Encounter - Duane Baum MD - 03/24/2017 5:45 PM CDT I will see her and I can also enrolled her in the IDEAS study. * Telephone Encounter - María Enriquez MA - 03/24/2017 4:04 PM CDT When checking out from appt with Dr Man on 03-24-17, pts caregiver and dtr, Ivette, asked about following up at the [facility]) location. She was not aware that Dr Man did not go to that location when she accepted toda y's visit. She just really wants to follow closer to home. She would like to se e if Dr. Baum would accept Bettina. - Karoline [id number] 4:05 pm documented in this encounter Plan of Treatment Care Team Description Date Type Specialty Andrzej Gama, DO [address] [place] [address] [phone] 04/17/2020 Office Visit Neurology documented as of this encounter Visit Diagnoses Not on filedocumented in this encounter
--- OUTSIDE RECORDS SUMMARY | 2019-12-22 20:29 | XMS REPORT | Encounter Summary ---
Author Author [facility] Organization [facility] Address Unknown Phone Unavailable Care Team Providers Care Bisque Kiln Placer Name Role Phone Laura Lee PCP Reason for Visit * Reason Comments MILD COGNITIVE IMPAIRMENT LAST OFFICE VISIT: 09/20/18 SEEN BY [facility]MA; 6MO FOLLOW UP Encounter Details Care Team Description Date Type Department Andrzej Gama, [address] [address] [phone] Mild cognitive impairment (Primary Dx); Parkinson's disease (HCC) 04/26/2019 Office [place] [address] [facility] [address] [place] [address] Social History Date Tobacco Use Types Packs/Day [...] Signs Reading Time Taken Comments Vital Sign 116/59 04/26/2019 1:39 PM CDT Blood Pressure 60 04/26/2019 1:39 PM CDT Pulse - - Temperature - - Respiratory Rate - - Oxygen Saturation - - Inhaled Oxygen Concentration 76 kg (167 lb 9.6 oz) 04/26/2019 1:39 PM CDT Weight 170.2 cm (5' 7") 04/26/2019 1:39 PM CDT Height 26.25 04/26/2019 1:39 PM CDT Body Mass Index documented in this encounter Progress Notes * Andrzej Gama, DO - 04/26/2019 1:45 PM CDT NEUROLOGY OFFICE VISIT Patient Name: Bettina Dean : 1935 PCP: Laura Lee MD Date of service: 04/26/2019 HISTORY OF PRESENT ILLNESS Bettina Dean is a 83 y.o., female seen in office followup, under prior ca re of Ash Stout MD, my prior associate last seen in September 2018 with a diag nosis of mild cognitive impairment.She is accompanied by her son, Uri. She is o n donepezil 10 mg daily. There is no change in her cognition. She is in assist ed living. No behavioral issues. She is on sertraline and has had no new mood disturbance This is a mention in the chart of cerebellar degeneration and a benign essential tremor. There is mention in the chart about a fall risk. She denies any balance problem s. She walks unassisted. No near falling/ falling episodes. No slowness of mo vement. She has had intermittent shaking in her hands for several years. No dr mar. No dream enactments. No RLS symptoms. She has a history of chronic atrial fibrillation on Pradaxa. She has history of a TIA. LABS/STUDIES REVIEWED: She had neuropsychological screening evaluation by John Coughlin, Ph.D. on 018 with the diagnosis of mild cognitive impairment. Thyroid Stimulating Hormone Date Value Ref Range Status 03/24/2017 1.35 0.47 - 4.68 uIU/mL Final VITAMIN B12 Date Value Ref Range Status 03/24/2017 548 239 - 931 pg/mL Final Folate Date Value Ref Range Status 03/24/2017 7.8 3.4 - 20.0 ng/mL Final REVIEW OF SYSTEMS ROS 10 point ROS is otherwise negative. CURRENT MEDICATIONS: Patient's Medications New Prescriptions CARBIDOPA-LEVODOPA (SINEMET) 25-100 MG PER TABLET Take 1 tablet by mouth 3 ( three) times a day. Previous Medications BENZONATATE (TESSALON) 100 MG CAPSULE Take 100 mg by mouth 2 (two) times a d ay. CALCIUM CARBONATE (CALCIUM 500 ORAL) Take by mouth. CHOLECALCIFEROL, VITAMIN D3, (VITAMIN D3) 2,000 UNIT TAB Take by mouth. DABIGATRAN ETEXILATE (PRADAXA) 75 MG CAPSULE Take 75 mg by mouth 2 (two) ana es a day. DOCUSATE CALCIUM (SURFAK) 240 MG CAPSULE Take 240 mg by mouth as needed for constipation. DONEPEZIL (ARICEPT) 10 MG TABLET 1 tab daily FAMOTIDINE (PEPCID) 20 MG TABLET Take 20 mg by mouth at bedtime. IPRATROPIUM (ATROVENT) 0.03 % NASAL SPRAY Use 2 sprays in each nostril every 12 (twelve) hours. LEVOCETIRIZINE (XYZAL) 5 MG TABLET Take 5 mg by mouth every evening. POLYETHYLENE GLYCOL (MIRALAX) 17 GRAM/DOSE POWDER Take [...] (AQUAPHOR HEALING) 41 % OINTMENT Apply topically daily. Modified Medications No medications on file Discontinued Medications No medications on file ALLERGIES: No Known Allergies Physical Exam: Blood Pressure: BP: 116/59 Pulse: Pulse: 60 Temperature: Respirations: Admission Weight: Weight: 76 kg (167 lb 9.6 oz) O2 Saturation: Today's Weight: Weight: 76 kg (167 lb 9.6 oz) BMI: Body mass index is 26.25 kg/m . In no distress. Speech and language function intact. Oriented x3. Attention n ormal. Recall 3/3 object after 5 minutes. Clock drawing test normal. She draw s intertwining pentagon accurately. No motor apraxia. One minute animal naming 15 (normal). She scored 30/30 MMSE. Appropriate affect and mood. Mild masked facies. Extraocular movements intact without nystagmus.Intermittent right hand resting tremor. No dyskinesias. Mild right arm cogwheel rigidity only with augmentation. Finger tapping minimally slow bilaterally. Slightly stooped posture with reduced arm swing on the right with increasing tr emor in her right hand with ambulation. She turned slightly en bloc. Normal pul l. No cerebellar findings. Impression: Mild cognitive impairment Idiopathic Parkinson's disease History of TIA Chronic atrial fibrillation on Pradaxa Plan: I had a lengthy discussion with her and her son regarding Parkinson's disease. I am initiating a trial of regular carbidopa/levodopa 25/100 one-half at [address] and dinner, increasing over 5 weeks to 1 t.i.d. with each meal. Potential si de effects were discussed. Follow up in 3 months and p.r.n. Electronically signed by Andrzej Gama DO 04/26/2019 2:59 PM documented in this encounter Plan of Treatment Care Team Description Date Type Specialty Andrzej Gama DO [address] [address] [phone] 04/17/2020 Office Visit Neurology documented as of this encounter Visit Diagnoses Diagnosis Mild cognitive impairment Mild cognitive impairment, so stated Parkinson's disease (HCC) Paralysis agitans documented in this encounter
--- OUTSIDE RECORDS SUMMARY | 2019-12-22 20:29 | XMS REPORT | Encounter Summary ---
Author Author [facility] Organization [facility] Address Unknown Phone Unavailable Care Team Providers Care Strapper Operator Name Role Phone Laura Lee PCP Reason for Visit * Reason Comments Results FOLLOW UP Encounter Details Care Team Description Date [place] [address] [place], [place] [id number] Mild cognitive impairment 07/14/2017 Office Visit [facility] [address] [place], [place] [address] Social History Date Tobacco Use Types Packs/Day [...] Signs Reading Time Taken Comments Vital Sign 116/62 07/14/2017 12:22 PM CDT Blood Pressure 51 07/14/2017 12:22 PM CDT Pulse - - Temperature - - Respiratory Rate - - Oxygen Saturation - - Inhaled Oxygen Concentration 59.8 kg (131 lb 14.4 oz) 07/14/2017 12:22 PM CDT Weight 170.2 cm (5' 7") 07/14/2017 12:22 PM CDT Height 20.66 07/14/2017 12:22 PM CDT Body Mass Index documented in this encounter Progress Notes * Duane Baum MD - 07/14/2017 12:45 PM CDT [facility] Date: 07/14/17 Patient Name: Bettina Dean Date of : 1935 Chief Complaint: Encounter Diagnosis Name Primary? Mild cognitive impairment Mrs. Dean was seen today in follow-up regarding concerns about progressive d ecline in her cognitive function. Since her last visit, she was evaluated by Dr. Coughlin, neuropsychologist. Her com prehensive cognitive assessment revealed that her cognitive functions fell withi n normal range for her age and educational background. However, Dr. Coughlin agreed that her history was suggestive of a progressive neurodegenerative disorder. Her family reports that her cognitive functions seem to have improved since she moved to a senior community. She has become engaged in a number of activities a t her living facility and clearly seems to have benefited from the increased soc ialization. She remains on donepezil 10 mg daily with no apparent side effects. Review of Systems: On 10 point review of systems, she had no additional complaints aside from some mild feelings of depression which she attributes to her loss of driving privileg es. Examination: Vitals: 07/14/17 1222 BP: 116/62 Pulse: (!) 51 On examination the patient was alert, oriented and able to provide a comprehensi ve history. Cranial nerve examination was normal. Motor examination revealed nor mal strength and tone in all extremities. Sensory exam was normal. Deep tendon r eflexes were 2/5 and symmetrical. Gait was normal. Rapid alternating movements w ere symmetric. Assessment & Plan: SNOMED CT(R) 1. Mild cognitive impairment MILD COGNITIVE DISORDER No orders of the defined types were placed in this encounter. At this point, her diagnosis remains unclear. 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 It is st ill possible that she is demonstrating early manifestations of a cognitive disor hemanth, however, this will only become apparent over time. I had a long discussion with the patient and her family about her current cognitive status and my inabi lity to establish a firm diagnosis. I have asked her to return in 6 months and I may consider a repeat neuropsychological assessment in 8-12 months. No Known Allergies Past Medical History: Diagnosis [...] Baum MD, FAAN Director, [facility] [address] [address] (phone) (fax) documented in this encounter Plan of Treatment Care Team Description Date Type Specialty Andrzej Gama DO [address] [address] [phone] 04/17/2020 Office Visit Neurology documented as of this encounter Visit Diagnoses Diagnosis Mild cognitive impairment Mild cognitive impairment, so stated documented in this encounter
--- NOTE | 2019-12-22 20:30 | ED Chest Pain ---
General Stated Complaint: FALL Source: patient, EMS Exam Limitations: no limitations History of Present Illness Date Seen by Provider: Dec 22, 2019 Time Seen by Provider: 20:26 Initial Comments Patient states she slid out of bed injuring left side of her chest. States she didn't hit anything solid, but has been having pain in the left side ever since this happened tonight. Denies any other injury or pain. Pain worse with movement or deep breath. Denies history of rib fracture. No chest pain or shortness of air rest. No recent fever or illness. Allergies and Home Medications Allergies Coded Allergies: No Known Drug Allergies (Unverified , 09/24/13) Patient Home Medication List Home Medication List Reviewed: Yes Review of Systems Review of Systems Constitutional: see HPI; No chills, No diaphoresis, No dizziness, No fever, No malaise, No weakness Respiratory: See HPI; Denies Cough, Denies Shortness of Air, Denies Stridor, Denies Wheezing Cardiovascular: See HPI, Chest Pain; Denies Edema, Denies Lightheadedness, Denies Palpitations, Denies Syncope Musculoskeletal: see HPI; No back pain, No joint pain, No muscle pain, No muscle stiffness, No muscle cramps Skin: No change in color, No rash Psychiatric/Neurological: Denies Numbness, Denies Paresthesia Past Yiqjrml-Bpltff-Zxcazg Hx Past Med/Social Hx: Reviewed Nursing Past Med/Soc Hx Patient Social History Recent Foreign Travel: No Contact w/Someone Who Travel: No Physical Exam Vital Signs Vital Signs - First Documented 12/22/19 20:34 Temp 36.3 Pulse 58 Resp 18 B/P (MAP) 145/76 (99) Pulse Ox 98 O2 Delivery Room Air Capillary Refill : Height, Weight, BMI Height: '" Weight: lbs. oz. kg; BMI Method: General Appearance: No Apparent Distress, WD/WN Respiratory: Lungs Clear, Normal Breath Sounds, No Accessory Muscle Use, No R espiratory Distress, Other (moderate tenderness left lateral and post chest wall along same rib lines (approx 5-6th)) Cardiovascular: Regular Rate, Rhythm, No Edema, No JVD Progress/Results/Core Measures Results/Orders My Orders Orders - TYLERVENSTEDINSON YAÑEZ DO Chest Pa/Lat (2 View) (12/22/19 20:25) Vital Signs/I&O 12/22/19 20:34 Temp 36.3 Pulse 58 Resp 18 B/P (MAP) 145/76 (99) Pulse Ox 98 O2 Delivery Room Air Progress Progress Note : Progress Note patient stable and well appearing. Declines pain medication. Discussed normal CXR and treatment for rib contusion/ pain. She declines a Rx for pain med ication, states she can take aleve. Diagnostic Imaging Diagonstic Imaging: Xray Plain Films/CT/US/NM/MRI: chest Comments no obvious rib fx, normal chest. Reviewed: Reviewed by Me Departure Impression Primary Impression: Contusion of rib on left side Qualified Codes: S20.212A - Contusion of left front wall of thorax, initial encounter Disposition: HOME, SELF-CARE Condition: Stable Departure-Patient Inst. Decision time for Depature: 20:51 Referrals: SHAR DIAZ MD (PCP/Family) Primary Care Physician Patient Instructions: Bruised Rib (DC) Add. Discharge Instructions: See your doctor in 1 week if not improving, sooner if worse. EDINSON ROTHMAN DO Dec 22, 2019 20:30
--- OUTSIDE RECORDS SUMMARY | 2019-12-22 20:30 | XMS REPORT ---
Author Author [employer]. Organization [employer] Address [address] [place] [address] Care Team Providers Care Music Worker Name Role Phone SHAR DIAZ Unavailable MORGAN LANDIN Unavailable Unavailable Adolfo FRANCO MD Unavailable Unavailable MORGAN LANDIN Unavailable Unavailable SHAR DIAZ Unavailable [facility] Unavailable Stacy vailable Shar Diaz Unavailable Unavailable Candace Allred MD Unavailable Unavailable Shar Diaz Unavailable Unavailable Adolfo FRANCO MD Unavailable Unavailable CORNELIUS FRANCO MD Unavailable Unavailable SHAR DIAZ Unavailable Unavailable MORGAN LANDIN MD Unavailable Unavailable Allergies Normalized Allergy Reported Date of Reaction(s) Care Provider Facility Allergy Type classification allergen Allergy Onset DA (21 Unclassified No Known Drug 09-24-2013 - no information MORGAN LANDIN Not Available sources.) Allergies (98330) Medications Medication Ingredient Drug Dose Dates Status Sig Sig Care Class(es) (Normalized) (Original) Provid er Drug Drug no Complete no no no Treatment Treatment information d information informati on name Unknown - Unknown - (no unknown (3 unknown phone) sources.) Problems Active Problems Problem Normalized Date of Normalized Normalized Provider Fac ility Classification Problem(s) Problem Problem Problem Sta tus Onset/Resoluti Duration on Residual Acquired 12-13-2019 - Episodic Active MORGAN Serrano ot Available codes; absence of (28812) unclassified breast and (20 sources.) nipple Residual Acquired 11-23-2019 - Episodic Active MORGAN Serrano ot Available codes; absence of (72029) unclassified left breast (20 sources.) and nipple Translations: [ ESTROGEN RECEPTOR 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+], ACQUIRED ABSENCE OF LEFT BREAST AND NIPP] Osteoporosis Age-related 11-23-2019 - Chronic Active BOBAN MA THEW Not Available (21 sources.) osteoporosis (57426) without current pathological fracture Translations: [ OSTEOPOROSIS NOS] Other Constipation, 12-13-2019 - Episodic Active MORGAN GARDNER , [facility] Via gastrointestin unspecified [facility] al [facility] - (2 sources.) [place] ([address]) Other lower Cough 12-13-2019 - Episodic Active MD JOAN VC Via respiratory [facility] disease (5 Hospital - sources.) [place] ([address]) Mycoses (4 Dermatophytosi 12-13-2019 - Episodic Active MORGAN GARCIA VC Via sources.) s of nail [facility] (77823) Other Diarrhea, 12-13-2019 - Episodic Active MORGAN LANDIN [facility] Via gastrointestin unspecified [facility] - (7 sources.) [place] ([address]) Diverticulosis Diverticular 12-28-2010 - Chronic Active LUNA ISAMAR DIAZ [facility] and disease of [address] [place] [address] diverticulitis colon of [facility] (4 sources.) Translations: [place] ([address]697) [ Diverticulosis , Diverticulosis of colon (without mention of hemorrhage), Diverticulosis of colon (without mention of hemorrhage), Diverticulosis ] Other Encounter for 11-23-2019 - Episodic Active MORGAN GARDNER Not Available aftercare (22 follow-up (73212) sources.) examination after completed treatment for malignant neoplasm Essential Essential 11-20-2009 - Chronic Active MD JOAN Not Available hypertension (primary) (18811) (20 sources.) hypertension Translations: [ - Benign essential HTN I10, Hypertension, HTN (hypertension) , Essential hypertension, Benign essential HTN, HTN (hypertension) ] Residual Estrogen 12-13-2019 - Episodic Active MORGAN LANDIN N ot Available codes; receptor (35390) unclassified positive (20 sources.) status [ER+] Residual Estrogen 11-23-2019 - Episodic Active MORGAN LANDIN N ot Available codes; receptor (84755) unclassified positive (24 sources.) status [ER+] Esophageal Gastro-esophag Chronic Active SHAR DIAZ Co mmunity disorders (2 eal reflux [address] [place] [address] Center sources.) disease of [place] without [place] ([address]1001) esophagitis Translations: [ Gastroesophage al reflux disease without esophagitis, Gastroesophage al reflux disease without esophagitis] Glaucoma (2 Glaucoma 12-13-2019 - Chronic Active MORGAN LANDIN [facility] Via sources.) Translations: MD Perez [ Unspecified Hospital - glaucoma(365.9 [place] ), GLAUCOMA (22191) NOS] Disorders of Hyperlipidemia 12-13-2019 - Chronic Active LUZMA Duran MD [facility] Via lipid , unspecified [place] metabolism (4 Hospital - sources.) [place] ([address]) Hypertension Hypertensive 12-13-2019 - Chronic Active MD JOAN [facility] Via with heart disease [place] complications without heart Hospital - and secondary failure [place] hypertension (73844) (4 sources.) Fluid and Hyponatremia 03-03-2017 - Episodic Active MORGAN GARDNER [facility] Via electrolyte Translations: MD Perez disorders (6 [ Hospital - sources.) Hyponatremia, [place] Hyponatremia, (31714) Hypokalemia, Hypokalemia, Hypokalemia, HYPOPOTASSEMIA ] Other long-term 11-23-2019 - Episodic Active MORGAN LANDIN [facility] Via aftercare (20 (current) use MD Perez sources.) of Hospital - anticoagulants [place] (81545) Other long-term 11-23-2019 - Episodic Active MORGAN LANDIN Not Available aftercare (20 (current) use (76187) sources.) of selective estrogen receptor modulators (SERMs) Other Long-term 12-13-2019 - Episodic Active MORGAN LANDIN Not Available aftercare (21 (current) use (74660) sources.) of other medications Cancer of Malignant 09-23-2009 - Chronic Active MORGAN LANDIN Not Available breast (20 neoplasm of (88206) sources.) upper-outer quadrant of left female breast Translations: [ MALIGNANT NEOPLASM OF UNSPECIFIED SITE O, MALIGN NEOPL BREAST NOS, Breast cancer, Breast cancer, Breast cancer] Heart valve Mitral valve 09-27-2011 - Chronic Active SHAR DIAZ Community disorders (8 disorder [facility] sources.) Translations: of [facility] [ MVP (mitral [place] (63339) valve prolapse), Non-rheumatic mitral regurgitation, Non-rheumatic mitral regurgitation, Non-rheumatic mitral regurgitation, MVP (mitral valve prolapse), 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] Other No current no information Active [facility] screening for problems or [facility] -[facility] suspected disability (85543) (Work conditions Phone: (not mental disorders or ) infectious disease) (1 source.) Occlusion or Occlusion and 12-13-2019 - Chronic Active MD SURYA FRANCO Via 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 Hospital - arteries (4 carotid [place] sources.) arteries (34855) Other Other long 11-23-2019 - Episodic Active MORGAN LANDIN Not Available aftercare (21 term (current) (69831) sources.) drug therapy Malaise and Other malaise 12-13-2019 - Episodic Active MORGAN GARCIA [facility] Via fatigue (1 and fatigue MD Perez source.) Hospital - [place] (19980) Other Peripheral 03-03-2017 - Chronic Active SHAR [facility] circulatory arterial [address] [facility] disease (2 occlusive of [facility] sources.) disease [place] (04971) Translations: [ Peripheral arterial disease, Peripheral arterial disease] Melanomas of Personal 12-13-2019 - Episodic Active MORGAN JACOBO W SURYA Via skin (5 history of MD Perez sources.) malignant Hospital - melanoma of [place] skin (95021) Cancer of Personal 11-23-2019 - Episodic Active MORGAN LANDIN Not Available breast (22 history of (09984) sources.) malignant neoplasm of breast Pleurisy; Pleural 11-14-2019 - Episodic Active SURYA FISHER Via pneumothorax; effusion, not MD Perez pulmonary elsewhere Hospital - collapse (6 classified [place] sources.) Translations: (92105) [ ATELECTASIS] Pulmonary Pulmonary 09-27-2016 - Chronic Active [facility] heart disease hypertension [address]64 [facility] (5 sources.) Translations: of [facility] [ Pulmonary [place] (44981) hypertension, Pulmonary hypertension] Syncope (21 Syncope and 02-28-2017 - Episodic Active MD SURYA FRANCO Via sources.) collapse Ana Translations: Hospital - [ Syncope, [place] Syncope, (15490) Syncope] Transient Transient 12-13-2019 - Chronic Active MD SURYA FRANCO Via cerebral cerebral [facility] ischemia (13 ischemic Hospital - sources.) attack, [place] unspecified (01844) Genitourinary Unspecified 03-26-2019 - Episodic Active MORGAN GARCIA Not Available symptoms and abnormal (78485) ill-defined findings in conditions (20 urine sources.) Translations: [ - Hematuria, unspecified R31.9, Gross hematuria, Gross Hematuria, Gross hematuria] Cardiac Unspecified 09-27-2011 - Chronic Active MD JOAN Not Available dysrhythmias atrial (24395) (20 sources.) fibrillation Translations: [ ATRIAL FIBRILLATION, Atrial fibrillation, Atrial fibrillation with RVR, PAF (paroxysmal atrial fibrillation), PAF (paroxysmal atrial fibrillation), Atrial fibrillation with RVR, JUNCTIONAL PREMATURE DEPOLARIZATION , PAROXYSMAL ATRIAL FIBRILLATION] Delirium Unspecified 11-23-2019 - Chronic Active MORGAN LANDIN Not Available dementia and dementia (15627) amnestic and without other behavioral cognitive disturbance disorders (20 sources.) Past or Other Problems Problem Normalized Date of Normalized Normalized Provider Fac ility Classification Problem(s) Problem Problem Problem Sta tus Onset/Resoluti Duration on Other lower Chronic cough 02-28-2017 - Episodic Completed [facility] respiratory Translations: 45004 [facility] disease (2 [ Chronic of [place] sources.) cough, Chronic [place] (25972) cough] Other Constipation 10-24-2008 - Episodic Completed [facility] gastrointestin Translations: 87953 [facility] al disorders [ of [facility] (2 sources.) Constipation, [place] (52602) Constipation] Residual Edema 03-03-2017 - Episodic Completed [facility] codes; Translations: 14524 [facility] unclassified [ Bilateral of [facility] (2 sources.) edema of lower [place] (05133) extremity, Bilateral edema of lower extremity] Pulmonary Pulmonary no information no information MD JOAN [facility] Via heart disease hypertension, Ana (1 source.) unspecified [facility] (84869) Procedures Procedure Normalized Procedure Procedure Result Performer Facility Date 11-23-2018 Collection venous no information no name (no phone) [facility] blood venipuncture [facility] (88514) 11-23-2018 Comprehensive no information no name (no phone) [facility] metabolic panel [facility] (78210) 06-12-2018 Corrected measurement 9.8 no name (no phone ) Via [facility] (07070) 06-12-2018 03-26-2019 Cystourethroscopy no information Candace Duran [facility] (92563) (Work Phone: ) 03-26-2019 Radiologic exam no information Ade Dillon [facility] abdomen 1 view (39110) (Work Phone: ) Immunizations Normalized Immunization Date Notes Care Provider Facili ty Immunization influenza, high dose 07-11-2019 no information no name [facility] seasonal, [facility] preservative-free - [facility] (81959) pneumococcal 02-21-2019 no information no name [facility] conjugate vaccine, [facility] 13 valent - [facility] (07318) tetanus and 02-17-2014 no information no name [facility] ealt diphtheria toxoids, [facility] adsorbed, - [facility] preservative free, (69788) for adult use (5 Lf of tetanus toxoid and 2 Lf of diphtheria toxoid) Results Test Name Value Interpretation Reference Range Date Time Fa cility (Normalized) (Normalized) (Medline Reference) No panel information on null BLO large (no code) [facility] (24419) KET slightly (no code) On license of [facility] cloudy~dark [facility] yellow~slight~ne [facility] gative~negative~ (15987) negative RADHAMES no information (no code) [facility] (53325) pH (Bld) 6.0 [pH] (no code) 7.38 - 7.42 [pH] [facility] (94629) Protein (U) no information (no code) 0 - 20 mg/dL [facility] [Mass/Vol] [facility] (90650) SG 1.025 (no code) [facility] (55105) URO 0.2 (no code) [facility] (37174) No panel information on 2019-06-07 Albumin 3.7 g/dL (N) 3.4 - 5.4 g/dL [facility] [Mass/Vol] [facility] (76196) Albumin/Globulin 1.4 {ratio} (N) 1 - 2.5 {ratio} Comm [facility] [Mass ratio] [facility] (22907) ALP [Catalytic 67 U/L (N) 44 - 147 U/L [facility] activity/Vol] [facility] (13033) ALT [Catalytic 9 U/L (N) 4 - 40 U/L Community ealth activity/Vol] [facility] (76654) AST [Catalytic 14 U/L (N) 10 - 34 U/L [facility] activity/Vol] [facility] (53552) Bilirubin 0.8 mg/dL (N) 0.1 - 1.2 mg/dL [facility] [Mass/Vol] [facility] (64500) Calcium 9.2 mg/dL (N) 8.5 - 10.2 mg/dL [facility] [Mass/Vol] [facility] (69987) Chloride 104 mmol/L (N) 95 - 106 mmol/L [facility] [Moles/Vol] [facility] (89798) CO2 [Moles/Vol] 26 mmol/L (N) 23 - 29 mmol/L [facility] (96660) Creatinine 0.88 mg/dL (N) [facility] h [Mass/Vol] [facility] (56109) GFR/1.73 sq M 70 (N) 90 - 120 [facility] predicted among mL/min/{1.73_m2} mL/min/{1.73_m2} Center o f [facility] blacks MDRD [facility] (S/P/Bld) [Vol (95005) rate/Area] GFR/1.73 sq 60 (N) 90 - 120 [facility] th M.predicted MDRD mL/min/{1.73_m2} mL/min/{1.73_m2} [place] of [facility] (S/P/Bld) [Vol [facility] rate/Area] (34623) Globulin (S) 2.7 g/dL (N) 2 - 3.5 g/dL [facility] ealth [Mass/Vol] [facility] (64738) Glucose 89 mg/dL (N) 60 - 125 mg/dL [facility] [Mass/Vol] [facility] (84134) Potassium 4.1 mmol/L (N) 3.7 - 5.2 mmol/L [facility] [Moles/Vol] [facility] () Protein 6.4 g/dL (N) 6.4 - 8.3 g/dL [facility] [Mass/Vol] [facility] () Sodium 140 mmol/L (N) 135 - 145 mmol/L [facility] [Moles/Vol] [facility] () Urea nitrogen 13 mg/dL (N) 7 - 20 mg/dL [facility] [Mass/Vol] [facility] () Urea NOT APPLICABLE (no code) [facility] nitrogen/Creatin [facility] [Mass ratio] [facility] () No panel information on 2019-03-02 Bacteria SEE NOTE (no code) [facility] identified Cx [facility] (U) [facility] () No panel information on 2018-11-23 Albumin 3.6 g/dL (N) 3.4 - 5.4 g/dL [facility] [Mass/Vol] [facility] () Albumin/Globulin 1.5 {ratio} (N) 1 - 2.5 {ratio} [facility] [Mass ratio] [facility] () ALP [Catalytic 64 U/L (N) 44 - 147 U/L [facility] activity/Vol] [facility] () ALT [Catalytic 7 U/L (N) 4 - 40 U/L Community ealt activity/Vol] [facility] () AST [Catalytic 14 U/L (N) 10 - 34 U/L [facility] activity/Vol] [facility] () Bilirubin 0.6 mg/dL (N) 0.1 - 1.2 mg/dL [facility] [Mass/Vol] [facility] () Calcium 8.9 mg/dL (N) 8.5 - 10.2 mg/dL [facility] [Mass/Vol] [facility] () Chloride 103 mmol/L (N) 95 - 106 mmol/L [facility] [Moles/Vol] [facility] (93971) CO2 [Moles/Vol] 31 mmol/L (N) 23 - 29 mmol/L [facility] (74024) Creatinine 0.87 mg/dL (N) [facility] [Mass/Vol] [facility] (93828) GFR/1.73 sq M 71 (N) 90 - 120 Community [facility] predicted among mL/min/{1.73_m2} mL/min/{1.73_m2} Center o f [facility] blacks MDRD [facility] (S/P/Bld) [Vol (11249) rate/Area] GFR/1.73 sq 62 (N) 90 - 120 [facility] th M.predicted MDRD mL/min/{1.73_m2} mL/min/{1.73_m2} [facility] (S/P/Bld) [Vol [facility] rate/Area] (71383) Globulin (S) 2.4 g/dL (N) 2 - 3.5 g/dL [facility] ealth [Mass/Vol] [facility] (44307) Glucose 90 mg/dL (N) 60 - 125 mg/dL [facility] [Mass/Vol] [facility] (92537) Potassium 4.1 mmol/L (N) 3.7 - 5.2 mmol/L [facility] [Moles/Vol] [facility] (52394) Protein 6.0 g/dL (L) 6.4 - 8.3 g/dL [facility] [Mass/Vol] [facility] (98161) Sodium 141 mmol/L (N) 135 - 145 mmol/L [facility] [Moles/Vol] [facility] (75127) Urea nitrogen 15 mg/dL (N) 7 - 20 mg/dL [facility] [Mass/Vol] [facility] (62215) Urea NOT APPLICABLE (no code) [facility] nitrogen/Creatin [facility] [Mass ratio] [facility] (02739) venous blood hemoglobin measurement (mass/volume) on 2018-06-12 Hemoglobin mass 11.9 g/dL (no code) 12.1 - 17.2 g/dL Via [facility] (Bld) [facility] [address] (17269) urine urobilinogen measurement by automated test strip (mass/volume) on 2018-06-12 Urobilinogen NORMAL (no code) Via [facility] Test strip Qn [facility] ([facility] () urine total bilirubin detection by test strip on 2018-06-12 Bilirubin Ql (U) no information (no code) Via [facility] () urine protein assay by test strip, semi-quantitativ e on 2018-06-12 Protein Test 1+ (*) Via Ana strip () [facility] [address] () urine ph measurement by test strip on 2018-06-12 pH Test strip 6 [pH] (no code) 4.6 - 8 [pH] Via [facility] ([facility] () urine nitrite detection by test strip on 2018-06-12 Nitrite Test no information (no code) Via Ana strip ([facility] () urine ketones detection by automated test strip on 2018-06-12 Ketones no information (no code) Via [facility] Automated test Hospital strip Ql ([facility] () urine glucose detection by automated test strip on 2018-06-12 Glucose no information (no code) Via [facility] Automated test Hospital strip Ql ([facility] () urine color determination on 2018-06-12 Color Nom (U) YELLOW (no code) Via [facility] (24552) urine clarity determination on 2018-06-12 Clarity Nom (U) VERY CLOUDY (*) Via [facility] () squamous epithelial cells detection in urine sediment by light microscopy on 2018-06-12 Epithelial no information (no code) Via [facility] cells.squamous Hospital LM Ql (Urine [place] sed) (44083) specific gravity of urine by test strip on 2018-06-12 Specific gravity 1.025 (*) Via [facility] Relative Density [facility] ([facility] () serum or plasma urea nitrogen/creatin ine mass ratio on 2018-06-12 Urea 15 mg/mg (no code) 6 - 22 mg/mg Via [facility] nitrogen/Creatin Hospital ine mass ratio [place] () serum or plasma urea nitrogen measurement (mass/volume) on 2018-06-12 Urea nitrogen 15 mg/dL (no code) 7 - 20 mg/dL [facility] (82808) serum or plasma total bilirubin measurement (mass/volume) on 2018-06-12 Bilirubin mass 0.8 mg/dL (no code) 0.1 - 1.2 mg/dL Via [facility] (87504) serum or plasma sodium measurement (moles/volume) on 2018-06-12 Sodium molar 137 mmol/L (no code) 135 - 145 mmol/L Via [facility] (02364) serum or plasma protein measurement (mass/volume) on 2018-06-12 Protein mass 6.9 g/dL (no code) 6.4 - 8.3 g/dL Via [facility] (95801) serum or plasma potassium measurement (moles/volume) on 2018-06-12 Potassium molar 3.8 mmol/L (no code) 3.7 - 5.2 mmol/L Via [facility] () serum or plasma glucose measurement (mass/volume) on 2018-06-12 Glucose mass 105 mg/dL (no code) 60 - 125 mg/dL Via [facility] (66649) serum or plasma creatinine measurement with calculation of estimated glomerular filtration rate on 2018-06-12 GFR/1.73 sq M 53 (no code) 90 - 120 Via [facility] among mL/min/{1.73_m2} mL/min/{1.73_m2} [facility] non-blacks MDRD [place] vol rate/area () (S/P/Bld) serum or plasma creatinine measurement (mass/volume) on 2018-06-12 Creatinine mass 1.00 mg/dL (no code) Via [facility] (32733) serum or plasma chloride measurement (moles/volume) on 2018-06-12 Chloride molar 101 mmol/L (no code) 95 - 106 mmol/L Via [facility] (68996) serum or plasma calcium measurement (mass/volume) on 2018-06-12 Calcium mass 9.7 mg/dL (no code) 8.5 - 10.2 mg/dL Via [facility] (20892) serum or plasma aspartate aminotransferase measurement (enzymatic activity/volume) on 2018-06-12 AST enzyme 14 U/L (no code) 10 - 34 U/L Via [facility] act/[facility] (04526) serum or plasma anion gap determination (moles/volume) on 2018-06-12 Anion gap 3 8 mmol/L (no code) 3 - 11 mmol/L Via [facility] molar [facility] (49461) serum or plasma alkaline phosphatase measurement (enzymatic activity/volume) on 2018-06-12 ALP enzyme 67 U/L (no code) 44 - 147 U/L Via [facility] act/[facility] (13882) serum or plasma albumin measurement (mass/volume) on 2018-06-12 Albumin mass 3.9 g/dL (no code) 3.4 - 5.4 g/dL Via [facility] (68341) serum or plasma alanine aminotransferase measurement (enzymatic activity/volume) on 2018-06-12 ALT enzyme 10 U/L (no code) 4 - 40 U/L Via [facility] act/[facility] (92108) mucus detection in urine sediment by light microscopy on 2018-06-12 Mucus LM Ql SMALL (*) Via [facility] (Urine sed) [facility] [address] (35989) leukocyte esterase on 2018-06-12 Leukocyte 3+ (*) Via [facility] esterase Test Hospital strip Ql (U) [place] (51642) erythrocytes detection in urine sediment by light microscopy on 2018-06-12 RBC LM Ql (Urine 5+ (*) Via [facility]) [facility] [address] (60411) crystals detection in urine sediment by light microscopy on 2018-06-12 Crystals LM Ql NONE (no code) Via [facility] (Urine sed) [facility] [address] (63665) complete urinalysis with reflex to culture on 2018-06-12 Urinalysis YES (no code) Via [facility] Reflex Culture [place] panel - Urine (52846) casts detection in urine sediment by light microscopy on 2018-06-12 Casts LM Ql NONE (no code) [facility] (Urine sed) [facility] [address] ([id number]) carbon dioxide on 2018-06-12 CO2 molar conc 28 mmol/L (no code) 23 - 29 mmol/L [id number] blood neutrophils automated count (number/volume) on 2018-06-12 Neutrophils Auto 3.8 10*3/uL (no code) 1.7 - 7 10*3/uL [facility] #/vol (Bld) [facility] [address] ([id number]) blood monocytes/100 leukocytes on 2018-06-12 Monocytes/100 13 % (H) 2 - 8 % Via [facility] WBC Auto (Bld) [facility] [address] ([id number]) blood monocytes automated count (number/volume) on 2018-06-12 Monocytes Auto 0.7 10*3/uL (no code) 0.3 - 0.9 Via [facility] #/vol (Bld) 10*3/uL [facility] [address] ([id number]) blood lymphocytes automated count (number/volume) on 2018-06-12 Lymphocytes Auto 1.0 10*3/uL (no code) 0.9 - 2.9 Via Anthony ti #/vol (Bld) 10*3/uL [facility] [address] ([id number]) blood leukocytes automated count (number/volume) on 2018-06-12 WBC Auto #/vol 5.7 10*3/uL (no code) 3.5 - 10.5 [facility] (Bld) 10*3/uL [facility] [address] ([id number]) blood hematocrit (volume fraction) on 2018-06-12 Hematocrit Auto 34 % (L) 36.1 - 50.3 % Via [facility] (Bld) [place] () blood erythrocytes automated count (number/volume) on 2018-06-12 RBC Auto #/vol 3.78 10*6/uL (L) 4.2 - 6.1 Via Eduardo i (Bld) 10*6/uL [facility] [address] ([id number]) bacterial urine culture on 2018-06-12 Bacteria Organism: SEE (no code) [facility] identified Cx REPORT Hospital [facility] (U) [place] ([id number]) bacteria detection in urine sediment by light microscopy on 2018-06-12 Bacteria LM Ql MODERATE (*) [facility] (Urine sed) [facility] [address] ([id number]) automated urine sediment leukocyte count by microscopy (number/high power field) on 2018-06-12 WBC LM.HPF no information (*) [facility] #/area (Urine Hospital sed) [place] ([id number]) automated urine sediment erythrocyte count by microscopy (number/high power field) on 2018-06-12 RBC LM.HPF no information (*) [facility] #/area (Urine Hospital sed) [place] ([id number]) automated erythrocyte mean corpuscular volume on 2018-06-12 MCV Auto Entitic 90 fL (no code) 80 - 100 fL Via Chri sti volume (RBC) [facility] [address] ([id number]) automated erythrocyte mean corpuscular hemoglobin concentration measurement (mass/volume) on 2018-06-12 MCHC Auto mass 35 g/dL (no code) 32 - 36 g/dL Via Anthony ti conc (RBC) [facility] [address] ([id number]) automated erythrocyte mean corpuscular hemoglobin (mass per erythrocyte) on 2018-06-12 MCH Auto Entitic 32 pg (no code) 27 - 31 pg Via Anthony ti mass (RBC) [facility] [address] ([id number]) automated erythrocyte distribution width ratio on 2018-06-12 Erythrocyte 12.9 % (no code) 11.6 - 14.6 % [facility] distribution Hospital width Auto Ratio [place] (RBC) ([id number]) automated eosinophil count on 2018-06-12 Eosinophils Auto 0.1 10*3/uL (no code) 0.05 - 0.5 Via Anthony ti #/vol (Bld) 10*3/uL [facility] [address] ([id number]) automated blood platelet mean volume measurement on 2018-06-12 Platelet mean 10.1 fL (no code) 7.2 - 11.7 fL Via Anthony ti volume Auto Hospital Entitic volume [place] (Bld) ([id number]) automated blood platelet count (count/volume) on 2018-06-12 Platelets Auto 213 10*3/uL (no code) 150 - 450 Via [facility] #/vol (Bld) 10*3/uL [facility] [address] ([id number]) automated blood neutrophils/100 leukocytes on 2018-06-12 Neutrophils/100 67 % (no code) 40 - 60 % Via Eduardo i WBC Auto (Bld) [facility] [address] ([id number]) automated blood lymphocytes/100 leukocytes on 2018-06-12 Lymphocytes/100 18 % (no code) 20 - 40 % Via Eduardo i WBC Auto (Bld) [facility] [address] ([id number]) automated blood eosinophils/100 leukocytes on 2018-06-12 Eosinophils/100 2 % (no code) 1 - 4 % Via Eduardo i WBC Auto (Bld) [facility] [address] ([id number]) automated blood basophils/100 leukocytes on 2018-06-12 Basophils/100 0 % (no code) 0.5 - 1 % Via [facility] WBC Auto (Bld) [facility] [address] ([id number]) automated blood basophil count (count/volume) on 2018-06-12 Basophils Auto 0.0 10*3/uL (no code) 0 - 0.3 10*3/uL Via risti #/vol (Bld) [facility] [address] ([id number]) venous blood hemoglobin measurement (mass/volume) on 2017-11-29 Hemoglobin (HGB) 11.5 g/dL (no code) 12 - 18 g/dL Via [facility] ([id number]) serum or plasma urea nitrogen/creatin ine mass ratio on 2017-11-29 BUN/Creatinine 16 mg/mg (no code) 10 - 20 mg/mg Via [facility] ([id number]) serum or plasma urea nitrogen measurement (mass/volume) on 2017-11-29 Urea nitrogen 13 mg/dL (no code) 7 - 20 mg/dL [facility] ([id number]) serum or plasma total bilirubin measurement (mass/volume) on 2017-11-29 Bilirubin 0.7 mg/dL (no code) 0.3 - 1.9 mg/dL [facility] (total) [facility] [address] ([id number]) serum or plasma sodium measurement (moles/volume) on 2017-11-29 Sodium 135 mmol/L (no code) 135 - 147 mmol/L Via [facility] ([id number]) serum or plasma protein measurement (mass/volume) on 2017-11-29 Protein 7.1 g/dL (no code) 6.4 - 8.3 g/dL [facility] ([id number]) serum or plasma potassium measurement (moles/volume) on 2017-11-29 Potassium 4.2 mmol/L (no code) 3.5 - 5.1 mmol/L [facility] ([id number]) serum or plasma glucose measurement (mass/volume) on 2017-11-29 Glucose 145 mg/dL (H) 60 - 125 mg/dL [facility] ([id number]) serum or plasma creatinine measurement with calculation of estimated glomerular filtration rate on 2017-11-29 eGFR (non-black) no information (no code) Via [facility] ([id number]) serum or plasma creatinine measurement (mass/volume) on 2017-11-29 Creatinine 0.83 mg/dL (no code) [facility] ([id number]) serum or plasma chloride measurement (moles/volume) on 2017-11-29 Chloride 100 mmol/L (no code) 95 - 106 mmol/L [facility] ([id number]) serum or plasma calcium measurement (mass/volume) on 2017-11-29 Calcium 9.8 mg/dL (no code) 9 - 11 mg/dL [facility] ([id number]) serum or plasma aspartate aminotransferase measurement (enzymatic activity/volume) on 2017-11-29 Aspartate 16 U/L (no code) 10 - 34 U/L [facility] aminotransferase [facility] (AST) [place] ([id number]) serum or plasma anion gap determination (moles/volume) on 2017-11-29 Anion gap 5 mmol/L (no code) 3 - 11 mmol/L [facility] ([id number]) serum or plasma alkaline phosphatase measurement (enzymatic activity/volume) on 2017-11-29 Alkaline 75 U/L (no code) 44 - 147 U/L [facility] phosphatase [facility] (ALP) [place] ([id number]) serum or plasma albumin measurement (mass/volume) on 2017-11-29 Albumin 3.8 g/dL (no code) 3.5 - 5.5 g/dL [facility] ([id number]) serum or plasma alanine aminotransferase measurement (enzymatic activity/volume) on 2017-11-29 Alanine 18 U/L (no code) 10 - 40 U/L [facility] aminotransferase [facility] (ALT) [place] ([id number]) carbon dioxide on 2017-11-29 CO2 30 mmol/L (no code) 23 - 29 mmol/L [facility] ([id number]) blood neutrophils automated count (number/volume) on 2017-11-29 Neutrophils 4.7 10*3/uL (no code) 1.5 - 7.8 [facility] 10*3/uL [facility] [address] ([id number]) blood monocytes/100 leukocytes on 2017-11-29 Monocytes/100 11 % (no code) 2 - 8 % [facility] leukocytes [facility] [address] ([id number]) blood monocytes automated count (number/volume) on 2017-11-29 Monocytes 0.7 10*3/uL (no code) 0.2 - 1.1 [facility] 10*3/uL [facility] [address] ([address]) blood lymphocytes automated count (number/volume) on 2017-11-29 Lymphocytes 0.8 10*3/uL (L) 0.85 - 4.1 [facility] 10*3/uL [facility] [address] ([id number]) blood leukocytes automated count (number/volume) on 2017-11-29 WBC (Leukocytes) 6.2 10*3/uL (no code) 3.8 - 10.8 [facility] 10*3/uL [facility] [address] ([id number]) blood hematocrit (volume fraction) on 2017-11-29 Hematocrit (HCT) 34 % (L) 39 - 51 % Via [facility] ([id number]) blood erythrocytes automated count (number/volume) on 2017-11-29 Erythrocytes 3.81 10*6/uL (L) 4.2 - 6.1 [facility] (RBC) 10*6/uL [facility] [address] ([id number]) automated erythrocyte mean corpuscular volume on 2017-11-29 MCV 90 fL (no code) 80 - 100 fL Via [facility] ([id number]) automated erythrocyte mean corpuscular hemoglobin concentration measurement (mass/volume) on 2017-11-29 MCHC 34 g/dL (no code) 32 - 36 g/dL [facility] ([id number]) automated erythrocyte mean corpuscular hemoglobin (mass per erythrocyte) on 2017-11-29 MCH 30 pg (no code) 27 - 31 pg [facility] ([id number]) automated erythrocyte distribution width ratio on 2017-11-29 RDW-CA 12.6 % (no code) 11 - 15 % Via [facility] ([id number]) automated eosinophil count on 2017-11-29 Eosinophils 0.1 10*3/uL (no code) 0.05 - 1.5 [facility] 10*3/[facility] ([id number]) automated blood platelet mean volume measurement on 2017-11-29 Platelet mean 9.9 fL (no code) 7.2 - 11.7 fL [facility] volume (PMV) [facility] [address] ([id number]) automated blood platelet count (count/volume) on 2017-11-29 Platelets 261 10*3/uL (no code) 150 - 400 [facility] 10*3/uL [facility] [address] ([id number]) automated blood neutrophils/100 leukocytes on 2017-11-29 Neutrophils/100 75 % (no code) 40 - 60 % Via [facility] ([id number]) automated blood lymphocytes/100 leukocytes on 2017-11-29 Lymphocytes/100 13 % (no code) 20 - 40 % Via [facility] leukocytes [facility] [address] ([id number]) automated blood eosinophils/100 leukocytes on 2017-11-29 Eosinophils/100 1 % (no code) 1 - 4 % [facility] ([id number]) automated blood basophils/100 leukocytes on 2017-11-29 Basophils/100 0 % (no code) 0.5 - 1 % Via [facility] ([id number]) automated blood basophil count (count/volume) on 2017-11-29 Basophils 0.0 10*3/uL (no code) 0 - 0.2 10*3/uL [facility] ([id number]) Vital Signs The data below is from unstructured sourcesNo vital sign information available.No vital signs result information available.No vital signs result information available. Interventions No Information Plan of Treatment Normalized Care Care Detail Care Activity Date Care Provider F acility Activity (CHM) Chronic Health [facility] 02-05-2019 SHAR Arriaga [id number] [facility] ([id number]) Goals Patient Goal Desired Goal no information no information Social History Normalized Code Original Code Date Value no information no information 06-12-2019 N - see cerner Sex Assigned At Sex Assigned At no information F emale Functional Status The data below is from unstructured sourcesNo functional status information available.No Functional Status information availableNo Functional Status information available Mental Status The data below is from unstructured sourcesNo Mental Status Information Available Encounters Encounter Normalized Encounter Encounter Diagnosis Care Provi hemanht Organization Date Type 08-07-2018 [facility] no information Doctor Migrati on (no [facility] phone) (no phone) 07-26-2018 [facility] no information Doctor Migrati on (no [facility] phone) (no phone) 06-29-2018 [facility] no information Doctor Migrati on (no [facility] phone) (no phone) 04-26-2017 [facility] no information Doctor Migrati on (no [facility] phone) (no phone) 04-18-2017 [facility] no information Doctor Migrati on (no [facility] phone) (no phone) 11-23-2018 Consultation for Essential (primary) SHAR DIAZ (no [facility] laboratory medicine hypertension phone) (no phone) 11-08-2018 Consultation for Hematuria, unspecified SHAR ROSSI (no [facility] laboratory medicine phone) (no phone) 06-12-2018 Discharged Recurring no information MORGAN LANDIN Work no organization name - (no phone) 06-19-2018 11-29-2017 Discharged Recurring no information MORGAN LANDIN Work no organization name - (no phone) 02-28-2018 03-26-2019 Office outpatient new no information Candace olmstead MD [facility] Work 45 minutes Work Phone: Phone: 06-19-2018 Patient encounter no information no name (no phone) no organization name (no phone) NEGATED Patient encounter no information no name (no phone) no organization name 06-12-2018 (no phone) - 06-18-2018 NEGATED Patient encounter no information no name (no phone) no organization name 02-28-2018 (no phone) 11-29-2017 Patient encounter no information no name (no phone) no organization name - (no phone) 02-27-2018 06-19-2017 Patient encounter no information CORNELIUS WILKINSON [facility] (no phone) [facility] (no phone) 06-07-2017 Patient encounter no information no name (no phone) no organization name - (no phone) 06-15-2017 05-09-2017 Patient encounter no information no name (no phone) no organization name - (no phone) 06-18-2017 11-12-2019 Patient encounter no information MORGAN LANDIN MD (no [facility] procedure phone) [facility] (no phone) 11-06-2019 Patient encounter no information MORGAN LANDIN MD (no [facility] procedure phone) [facility] (no phone) 09-03-2019 Patient encounter no information no name (no phone) no organization name procedure (no phone) 07-05-2019 Patient encounter no information no name (no phone) no organization name procedure (no phone) 06-22-2019 Patient encounter no information no name (no phone) no organization name procedure (no phone) 06-12-2019 Patient encounter no information MORGAN LANDIN MD (no [facility] - procedure phone) [facility] 09-09-2019 (no phone) 06-07-2019 Patient encounter no information no name (no phone) no organization name procedure (no phone) 05-31-2019 Patient encounter no information no name (no phone) no organization name procedure (no phone) 05-31-2019 Patient encounter no information CORNELIUS WILKINSON [facility] procedure (no phone) [facility] (no phone) 05-18-2019 Patient encounter no information no name (no phone) no organization name procedure (no phone) 03-11-2019 Patient encounter no information no name (no phone) no organization name procedure (no phone) 03-02-2019 Patient encounter no information no name (no phone) no organization name procedure (no phone) 03-02-2019 Patient encounter no information no name (no phone) no organization name procedure (no phone) 02-21-2019 Patient encounter no information no name (no phone) no organization name procedure (no phone) 12-11-2018 Patient encounter no information no name (no phone) no organization name - procedure (no phone) 03-11-2019 12-11-2018 Patient encounter no information MORGAN LANDIN MD (no [facility] - procedure phone) [facility] 03-10-2019 (no phone) 11-23-2018 Patient encounter no information no name (no phone) no organization name procedure (no phone) 11-23-2018 Patient encounter no information no name (no phone) no organization name procedure (no phone) 11-08-2018 Patient encounter no information no name (no phone) no organization name procedure (no phone) 06-29-2018 Patient encounter no information no name (no phone) no organization name procedure (no phone) 06-12-2018 Patient encounter no information MORGAN LANDIN MD (no [facility] - procedure phone) [facility] 06-17-2018 (no phone) 11-29-2017 Patient encounter no information MORGAN LANDIN MD (no [facility] - procedure phone) [facility] 02-26-2018 (no phone) 06-07-2017 Patient encounter no information MORGAN LANDIN MD (no [facility] - procedure phone) [facility] 06-15-2017 (no phone) 05-09-2017 Patient encounter no information CORNELIUS WILKINSON [facility] - procedure (no phone) [facility] 06-17-2017 (no phone) 05-02-2017 Patient encounter no information no name (no phone) no organization name procedure (no phone) 04-25-2017 Patient encounter no information no name (no phone) no organization name procedure (no phone) 04-18-2017 Patient encounter no information no name (no phone) no organization name procedure (no phone) 04-11-2017 Patient encounter no information no name (no phone) no organization name procedure (no phone) 04-11-2017 Patient encounter no information CORNELIUS WILKINSON [facility] procedure MD (no phone) [facility] (no phone) 02-28-2017 Patient encounter no information no name (no phone) no organization name procedure (no phone) 12-14-2016 Patient encounter no information no name (no phone) no organization name procedure (no phone) 12-14-2016 Patient encounter no information MORGAN LANDIN MD (no [facility] procedure phone) [facility] (no phone) 06-01-2016 Patient encounter no information no name (no phone) no organization name procedure (no phone) 06-01-2016 Patient encounter no information MORGAN LANDIN MD (no [facility] procedure phone) [facility] (no phone) 12-02-2015 Patient encounter no information no name (no phone) no organization name procedure (no phone) 12-02-2015 Patient encounter no information MORGAN LANDIN MD (no [facility] procedure phone) [facility] (no phone) 11-06-2015 Patient encounter no information no name (no phone) no organization name procedure (no phone) 11-06-2015 Patient encounter no information MORGAN LANDIN MD (no [facility] procedure phone) [facility] (no phone) 10-24-2015 Patient encounter no information no name (no phone) no organization name procedure (no phone) 07-08-2015 Patient encounter no information no name (no phone) no organization name procedure (no phone) 07-08-2015 Patient encounter no information MORGAN LANDIN MD (no [facility] procedure phone) [facility] (no phone) 04-22-2015 Patient encounter no information no name (no phone) no organization name procedure (no phone) 04-22-2015 Patient encounter no information MORGAN LANDIN MD (no [facility] procedure phone) [facility] (no phone) 01-07-2015 Patient encounter no information no name (no phone) no organization name procedure (no phone) 01-07-2015 Patient encounter no information MORGAN LANDIN MD (no [facility] procedure phone) [facility] (no phone) 10-15-2014 Patient encounter no information no name (no phone) no organization name procedure (no phone) 10-15-2014 Patient encounter no information MORGAN LANDIN MD (no [facility] procedure phone) [facility] (no phone) 07-09-2014 Patient encounter no information no name (no phone) no organization name procedure (no phone) 07-09-2014 Patient encounter no information MORGAN LANDIN MD (no [facility] procedure phone) [facility] (no phone) 03-26-2014 Patient encounter no information no name (no phone) no organization name procedure (no phone) 03-26-2014 Patient encounter no information MORGAN LANDIN MD (no [facility] procedure phone) [facility] (no phone) 01-15-2014 Patient encounter no information no name (no phone) no organization name procedure (no phone) 01-15-2014 Patient encounter no information MORGAN LANDIN MD (no [facility] procedure phone) [facility] (no phone) 09-25-2013 Patient encounter no information no name (no phone) no organization name procedure (no phone) 09-25-2013 Patient encounter no information MORGAN LANDIN MD (no [facility] procedure phone) [facility] (no phone) 07-17-2013 Patient encounter no information no name (no phone) no organization name procedure (no phone) 07-17-2013 Patient encounter no information MORGAN LANDIN MD (no [facility] procedure phone) [facility] (no phone) 01-16-2013 Patient encounter no information no name (no phone) no organization name procedure (no phone) 01-16-2013 Patient encounter no information MORGAN LANDIN MD (no [facility] procedure phone) [facility] (no phone) 06-20-2012 Patient encounter no information no name (no phone) no organization name procedure (no phone) 06-20-2012 Patient encounter no information MORGAN LANDIN MD (no [facility] procedure phone) [facility] (no phone) 03-21-2012 Patient encounter no information no name (no phone) no organization name procedure (no phone) 03-21-2012 Patient encounter no information MORGAN LANDIN MD (no [facility] procedure phone) [facility] (no phone) 12-21-2011 Patient encounter no information no name (no phone) no organization name procedure (no phone) 12-21-2011 Patient encounter no information MORGAN LANDIN MD (no [facility] procedure phone) [facility] (no phone) 09-28-2011 Patient encounter no information MORGAN LANDIN MD (no [facility] procedure phone) [facility] (no phone) 06-15-2011 Patient encounter no information MORGAN LANDIN MD (no [facility] procedure phone) [facility] (no phone) 03-09-2011 Patient encounter no information MORGAN LANDIN MD (no [facility] procedure phone) [facility] (no phone) 12-30-2010 Patient encounter no information no name (no phone) no organization name procedure (no phone) 12-01-2010 Patient encounter no information MORGAN LANDIN MD (no [facility] procedure phone) [facility] (no phone) 09-01-2010 Patient encounter no information MORGAN LANDIN MD (no [facility] procedure phone) [facility] (no phone) 06-09-2010 Patient encounter no information MORGAN LANDIN MD (no [facility] procedure phone) [facility] (no phone) 03-10-2010 Patient encounter no information MORGAN LANDIN MD (no [facility] procedure phone) [facility] (no phone) 11-25-2009 Patient encounter no information MORGAN LANDIN MD (no [facility] procedure phone) [facility] (no phone) 10-28-2009 Patient encounter no information MORGAN LANDIN MD (no [facility] procedure phone) [facility] (no phone) Patient encounter no information no name (no phone) no organ ization name procedure (no phone) 11-10-2018 Telephone encounter no information SHAR DIAZ (n o [facility] phone) (no phone) 09-17-2018 Telephone encounter no information Doctor Migration ([facility] phone) (no phone) Medical Equipment The data below is from unstructured sourcesNo Medical Equipment Information available Payers Normalized Payer Value Private Health Insurance [id number] Private Health Insurance no information [id number]) Medicare no information ([id number]) Evaluation note Note Type Note Facility Evaluation No Assessments Information Available A scension note Via [facility] ([id number]) Advance Directives No advance directive information available. Discharge Instructions No hospital discharge instruction information available. Additional Source Comments This clinical document has been generated using [employer] software that has been certified by the Office of the National Coordinator for Health Information Technology (ONC 15.99.04.3023.Diam.31.00.0.270734) and the National Committee for Multiplex Operator (NCQA, as an eMeasure certified technology). FOR RECORDS PERTAINING TO PATIENTS WHO ARE OR HAVE BEEN ENROLLED IN A CHEMICAL D EPENDENCY/SUBSTANCE ABUSE PROGRAM, SOME INFORMATION MAY BE OMITTED. This clinica l summary was aggregated from multiple sources. Caution should be exercised in using it in the provision of clinical care. This summary normalizes information from multiple sources, and as a consequence, information in this document may ma terially change the coding, format and clinical context of patient data. In rikki tion, data may be omitted in some cases. CLINICAL DECISIONS SHOULD BE BASED ON T HE PRIMARY CLINICAL RECORDS. [employer] provides no warranty or guara ntee of the accuracy or completeness of information in this document.The followi ng information is based on time limited clinical information UNRECOGNIZED CONTENT PROVIDED BELOW FOR UNRECOGNIZED SECTION REASON FOR VISIT Lab
--- OUTSIDE RECORDS SUMMARY | 2019-12-22 20:30 | XMS REPORT ---
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 Name Role Phone SHAR DIAZ Unavailable PROBLEMS Type Condition ICD9-CM Code [id number]-QM Code Onset Dates Condition S tatus SNOMED Code Problem Peripheral arterial disease 443.9 Feb, 0 360396372 Problem Syncope 780.2 Feb, 0 9935132 07 Problem Hypokalemia 276.8 Feb, 0 97887 004 Problem Constipation 564.00 Oct, 0 1476 0008 Problem Chronic cough 786.2 Feb, 0 681 59404 Problem Breast cancer 174.9 Sep, 0 254 256914 Problem Hyponatremia 276.1 Feb, 0 8962 7008 Problem Syncope R55 Feb, 0 7861115 07 Problem MVP (mitral valve prolapse) 424.0 Sep, 0 85474259 Problem Diverticulosis K57.90 Dec, 0 39 3883997 Problem Pulmonary hypertension 416.8 Sep, 0 46712089 Problem Diverticulosis 562.10 Dec, 0 39 8674630 Problem Atrial fibrillation with RVR 427.31 Feb, 7 0 35381570 Problem Unspecified glaucoma(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.9) H40.9 0 95830660 Problem Bilateral edema of lower extremity 782.3 2016 0 547304391 Problem Pulmonary hypertension I27.20 Sep, 0 37336628 Problem Gastroesophageal reflux disease without esophagitis 530.81 0 909392927 Problem Atrial fibrillation with RVR I48.91 12 Feb, 201 7 0 39747212 Problem HTN (hypertension) I10 Nov, 0 04529346 Problem Diverticulosis of colon (without mention of hemorrhage) K57.30 0 035117646 Problem PAF (paroxysmal atrial fibrillation) I48.0 Sep, 0 27285792 Problem PAF (paroxysmal atrial fibrillation) 427.31 09 Sep, 2011 0 24678095 Problem Non-rheumatic mitral regurgitation I34.0 09 2016 0 864482441 Problem Hypokalemia E87.6 15 Feb, 2017 0 14785 004 Problem MVP (mitral valve prolapse) I34.1 09 Sep, 2011 0 96431903 Problem Bilateral edema of lower extremity R60.0 15 2016 0 736287116 Problem Peripheral arterial disease I73.9 15 Feb, 2017 0 742528909 Problem Hyponatremia E87.1 15 Feb, 2017 0 8962 7008 Problem Diverticulosis of colon (without mention of hemorrhage) 562. 10 0 397586485 Problem Benign essential HTN I10 Active 14806876 Problem HTN (hypertension) 401.9 Nov, 0 13663199 Problem Non-rheumatic mitral regurgitation 424.0 09 2016 0 104993691 Problem Gastroesophageal reflux disease without esophagitis K21.9 0 502438596 Problem Breast cancer C50.919 Sep, 0 254 648393 Problem Chronic cough R05 Feb, 0 681 78703 Problem Constipation K59.00 05 Oct, 2008 0 1476 0008 ALLERGIES No Information ENCOUNTERS Encounter Location Date Diagnosis [facility] [address] [place] [address] January, [facility] [address] [place] [address] Nov, Benign essential HTN I10 [address] [address] Oct, [address] [address] Oct, Hematuria, unspecified R31.9 [facility] [address] [facility] [id number] [address] [place] [phone] Aug, [facility] [address] [facility] [id number] [address] [place] [phone] Jul, [facility] [address] [facility] [id number] [address] [place] [phone] Jul, [facility] [address] [facility] [id number] [address] [place] [phone] Jun, [facility] [address] [facility] [id number] [address] [place] [phone] Apr, [facility] [address] [facility] [id number] [address] [place] [phone] Mar, IMMUNIZATIONS No Known Immunizations SOCIAL HISTORY Never Assessed REASON FOR VISIT Lab PLAN OF CARE VITAL SIGNS MEDICATIONS Unknown Medications RESULTS No Results PROCEDURES Procedure Date Ordered Result Body Site VENIPUNCT, ROUTINE* November 23, 2018 COMPREHEN METABOLIC PANEL November 23, 2018 INSTRUCTIONS MEDICATIONS ADMINISTERED No Known Medications
--- OUTSIDE RECORDS SUMMARY | 2019-12-22 20:31 | XMS REPORT | Continuity of Care Document ---
Author Organization Unknown Address Unknown Phone Unavailable Allergies Active Description Code Type Severity Reaction Onset Reported/Identified Relationship to Patient Clinical Status Yes No Known Drug Allergies [id number] Drug Allergy Unknown N/A 09/24/2013 Medications There is no data. Problems Date Dx Coded Attending Type Code Diagnosis Diagnosed By 08/01/2014 URVASHI, BOBAN N Ot 174.9 08/01/2014 URVASHI, BOBAN N Ot 427.31 08/01/2014 URVASHI, BOBAN N Ot 733.00 08/01/2014 URVASHI, BOBAN N Ot V45.71 08/01/2014 URVASHI, BOBAN N Ot V58.69 08/01/2014 URVASHI, BOBAN N Ot V86.0 08/13/2014 URVASHI, BOBAN N Ot 174.9 08/13/2014 URVASHI, BOBAN N Ot 427.31 08/13/2014 URVASHI, BOBAN N Ot 733.00 08/13/2014 URVASHI, BOBAN N Ot V45.71 08/13/2014 URVASHI, BOBAN N Ot V58.69 08/13/2014 URVASHI, BOBAN N Ot V86.0 11/14/2014 URVASHI, BOBAN N Ot 733.00 11/14/2014 URVASHI, BOBAN N Ot V58.69 02/07/2015 URVASHI, BOBAN N Ot 110.1 02/07/2015 URVASHI, BOBAN N Ot 174.9 02/07/2015 URVASHI, BOBAN N Ot 733.00 02/07/2015 URVASHI, BOBAN N Ot V45.71 02/07/2015 URVASHI, BOBAN N Ot V58.69 02/07/2015 URVASHI, BOBAN N Ot V86.0 02/13/2015 URVASHI, BOBAN N Ot 110.1 02/13/2015 URVASHI, BOBAN N Ot 174.9 02/13/2015 URVASHI, BOBAN N Ot 733.00 02/13/2015 URVASHI, BOBAN N Ot V45.71 02/13/2015 URVASHI, MORGAN N Ot V58.69 02/13/2015 URVASHI, MORGAN Serrano Ot V86.0 05/06/2015 URVASHI, MORGAN N Ot 733.00 05/06/2015 URVASHI, MORGAN N Ot V58.69 05/16/2015 URVASHI, MORGAN N Ot 733.00 05/16/2015 URVASHI, MORGAN N Ot V58.69 06/09/2015 URVASHI, MORGAN N Ot 733.00 06/09/2015 URVASHI, MORGAN N Ot V58.69 08/05/2015 URVASHI, MORGAN N Ot C50.912 08/05/2015 URVASHI, MORGAN Serrano Ot M81.0 08/05/2015 URVASHI, MORGAN N Ot Z17.0 08/05/2015 URVASHI, MORGAN N Ot Z79.810 08/05/2015 URVASHI, MORGAN N Ot Z79.899 08/05/2015 URVASHI, MORGAN N Ot Z90.12 08/13/2015 URVASHI, MORGAN N Ot C50.912 08/13/2015 URVASHI, MORGAN N Ot M81.0 08/13/2015 URVASHI, MORGAN N Ot Z17.0 08/13/2015 URVASHI, MORGAN N Ot Z79.810 08/13/2015 UVRASHI, MORGAN N Ot Z79.899 08/13/2015 URVASHI, MORGAN N Ot Z90.12 11/06/2015 Ot 174.9 11/06/2015 Ot 733.00 11/06/2015 Ot V10.82 11/06/2015 Ot V45.71 11/06/2015 Ot V58.69 11/06/2015 Ot V86.0 11/06/2015 Ot 174.9 11/06/2015 Ot 733.00 11/06/2015 Ot V10.82 11/06/2015 Ot V45.71 11/06/2015 Ot V58.69 11/06/2015 Ot V86.0 11/06/2015 Ot 174.9 11/06/2015 Ot 733.00 11/06/2015 Ot V10.82 11/06/2015 Ot V45.71 11/06/2015 Ot V58.69 11/06/2015 Ot V86.0 11/06/2015 Ot 174.9 11/06/2015 Ot 564.00 11/06/2015 Ot 733.00 11/06/2015 Ot V45.71 11/06/2015 Ot V58.69 11/06/2015 Ot V86.0 11/06/2015 Ot 174.9 11/06/2015 Ot 733.00 11/06/2015 Ot V45.71 11/06/2015 Ot V58.69 11/06/2015 Ot V86.0 11/06/2015 Ot 174.9 11/06/2015 Ot 564.00 11/06/2015 Ot 733.00 11/06/2015 Ot V45.71 11/06/2015 Ot V58.69 11/06/2015 Ot V86.0 11/06/2015 Ot 174.9 11/06/2015 Ot 427.31 11/06/2015 Ot 733.00 11/06/2015 Ot V45.71 11/06/2015 Ot V58.69 11/06/2015 Ot V86.0 11/06/2015 Ot 174.9 11/06/2015 Ot 276.8 11/06/2015 Ot 427.31 11/06/2015 Ot 733.00 11/06/2015 Ot V45.71 11/06/2015 Ot V58.69 11/06/2015 Ot V86.0 11/06/2015 Ot 174.9 11/06/2015 Ot 427.31 11/06/2015 Ot 733.00 11/06/2015 Ot V45.71 11/06/2015 Ot V58.69 11/06/2015 Ot V86.0 11/06/2015 MORGAN LANDIN N Ot 174.9 11/06/2015 URVASHIMORGAN GARDNER N Ot 427.31 11/06/2015 URVASHIMORGAN GARDNER N Ot 733.00 11/06/2015 URVASHIMORGAN GARDNER N Ot V45.71 11/06/2015 URVASHIMORGAN GARDNER N Ot V58.69 11/06/2015 URVASHIMORGAN GARDNER N Ot V86.0 11/06/2015 URVASHIMORGAN GARDNER N Ot 174.9 11/06/2015 URVASHIMORGAN GARDNER N Ot 733.00 11/06/2015 URVASHI, BOBAN N Ot V45.71 11/06/2015 URVASHI, BOBAN N Ot V58.69 11/06/2015 URVASHI, BOBAN N Ot V86.0 11/06/2015 URVASHI, BOBAN N Ot 174.9 11/06/2015 URVASHI, BOBAN N Ot 733.00 11/06/2015 URVASHI, BOBAN N Ot V45.71 11/06/2015 URVASHI, BOBAN N Ot V58.69 11/06/2015 URVASHI, BOBAN N Ot V86.0 11/06/2015 URVASHI, BOBAN N Ot 174.9 11/06/2015 URVASHI, BOBAN N Ot 427.31 11/06/2015 URVASHI, BOBAN N Ot 733.00 11/06/2015 URVASHI, BOBAN N Ot V45.71 11/06/2015 URVASHI, BOBAN N Ot V58.69 11/06/2015 URVASHI, BOBAN N Ot V86.0 11/06/2015 URVASHI, BOBAN N Ot 174.9 11/06/2015 URVASHI, BOBAN N Ot 427.31 11/06/2015 URVASHI, BOBAN N Ot 733.00 11/06/2015 URVASHI, BOBAN N Ot V45.71 11/06/2015 URVASHI, BOBAN N Ot V58.69 11/06/2015 URVASHI, BOBAN N Ot V86.0 11/06/2015 URVASHI, BOBAN N Ot 174.9 11/06/2015 URVASHI, BOBAN N Ot 427.31 11/06/2015 URVASHI, BOBAN N Ot 733.00 11/06/2015 URVASHI, BOBAN N Ot V45.71 11/06/2015 URVASHI, BOBAN N Ot V58.69 11/06/2015 URVASHI, BOBAN N Ot V86.0 11/06/2015 URVASHI, BOBAN N Ot 733.00 11/06/2015 URVASHI, BOBAN N Ot V58.69 11/06/2015 URVASHI, BOBAN N Ot 110.1 11/06/2015 URVASHI, BOBAN N Ot 174.9 11/06/2015 URVASHI, BOBAN N Ot 733.00 11/06/2015 URVASHI, BOBAN N Ot V45.71 11/06/2015 URVASHI, BOBAN N Ot V58.69 11/06/2015 MORGAN LANDIN Ot V86.0 11/06/2015 MORGAN LANDIN Ot 733.00 11/06/2015 MORGAN LANDIN Ot V58.69 11/06/2015 MORGAN LANDIN Ot C50.912 11/06/2015 MORGAN LANDIN Ot M81.0 11/06/2015 MORGAN LANDIN Ot Z17.0 11/06/2015 MORGAN LANDIN Ot Z79.810 11/06/2015 MORGAN LANDIN Ot Z79.899 11/06/2015 MORGAN LANDIN Ot Z90.12 11/06/2015 Ot 174.9 11/06/2015 Ot 733.00 11/06/2015 Ot V10.82 11/06/2015 Ot V45.71 11/06/2015 Ot V58.69 11/06/2015 Ot V86.0 11/06/2015 Ot 174.9 11/06/2015 Ot 733.00 11/06/2015 Ot V10.82 11/06/2015 Ot V45.71 11/06/2015 Ot V58.69 11/06/2015 Ot V86.0 11/06/2015 Ot 174.9 11/06/2015 Ot 733.00 11/06/2015 Ot V10.82 11/06/2015 Ot V45.71 11/06/2015 Ot V58.69 11/06/2015 Ot V86.0 11/06/2015 Ot 174.9 11/06/2015 Ot 564.00 11/06/2015 Ot 733.00 11/06/2015 Ot V45.71 11/06/2015 Ot V58.69 11/06/2015 Ot V86.0 11/06/2015 Ot 174.9 11/06/2015 Ot 733.00 11/06/2015 Ot V45.71 11/06/2015 Ot V58.69 11/06/2015 Ot V86.0 11/06/2015 Ot 174.9 11/06/2015 Ot 564.00 11/06/2015 Ot 733.00 11/06/2015 Ot V45.71 11/06/2015 Ot V58.69 11/06/2015 Ot V86.0 11/06/2015 Ot 174.9 11/06/2015 Ot 427.31 11/06/2015 Ot 733.00 11/06/2015 Ot V45.71 11/06/2015 Ot V58.69 11/06/2015 Ot V86.0 11/06/2015 Ot 174.9 11/06/2015 Ot 276.8 11/06/2015 Ot 427.31 11/06/2015 Ot 733.00 11/06/2015 Ot V45.71 11/06/2015 Ot V58.69 11/06/2015 Ot V86.0 11/06/2015 Ot 174.9 11/06/2015 Ot 427.31 11/06/2015 Ot 733.00 11/06/2015 Ot V45.71 11/06/2015 Ot V58.69 11/06/2015 Ot V86.0 11/06/2015 URVASHI, BOBAN N Ot 174.9 11/06/2015 URVASHI, BOBAN N Ot 427.31 11/06/2015 URVASHI, BOBAN N Ot 733.00 11/06/2015 URVASHI, BOBAN N Ot V45.71 11/06/2015 URVASHI, BOBAN N Ot V58.69 11/06/2015 URVASHI, BOBAN N Ot V86.0 11/06/2015 URVASHI, BOBAN N Ot 174.9 11/06/2015 URVASHI, BOBAN N Ot 733.00 11/06/2015 URVASHI, BOBAN N Ot V45.71 11/06/2015 URVASHI, BOBAN N Ot V58.69 11/06/2015 URVASHI, BOBAN N Ot V86.0 11/06/2015 URVASHI, BOBAN N Ot 174.9 11/06/2015 URVASHI, BOBAN N Ot 733.00 11/06/2015 URVASHI, BOBAN N Ot V45.71 11/06/2015 URVASHI, BOBAN N Ot V58.69 11/06/2015 URVASHI, BOBAN N Ot V86.0 11/06/2015 URVASHI, BOBAN N Ot 174.9 11/06/2015 URVASHI, BOBAN N Ot 427.31 11/06/2015 URVASHI, BOBAN N Ot 733.00 11/06/2015 URVASHI, BOBAN N Ot V45.71 11/06/2015 URVASHI, BOBAN N Ot V58.69 11/06/2015 URVASHI, BOBAN N Ot V86.0 11/06/2015 URVASHI, BOBAN N Ot 174.9 11/06/2015 URVASHI, BOBAN N Ot 427.31 11/06/2015 URVASHI, BOBAN N Ot 733.00 11/06/2015 URVASHI, BOBAN N Ot V45.71 11/06/2015 URVASHI, BOBAN N Ot V58.69 11/06/2015 URVASHI, BOBAN N Ot V86.0 11/06/2015 URVASHI, BOBAN N Ot 174.9 11/06/2015 URVASHI, BOBAN N Ot 427.31 11/06/2015 URVASHI, BOBAN N Ot 733.00 11/06/2015 URVASHI, BOBAN N Ot V45.71 11/06/2015 URVASHI, BOBAN N Ot V58.69 11/06/2015 URVASHI, BOBAN N Ot V86.0 11/06/2015 URVASHI, INÉSAN N Ot 733.00 11/06/2015 URVASHI, INÉSAN N Ot V58.69 11/06/2015 URVASHI, BOBAN N Ot 110.1 11/06/2015 URVASHI, BOBAN N Ot 174.9 11/06/2015 URVASHI, BOBAN N Ot 733.00 11/06/2015 URVASHI, INÉSAN N Ot V45.71 11/06/2015 URVASHI, BOBAN N Ot V58.69 11/06/2015 URVASHI, MORGAN N Ot V86.0 11/06/2015 URVASHI, BOBAN N Ot 733.00 11/06/2015 URVASHI, BOBAN N Ot V58.69 11/06/2015 URVASHI, BOBAN N Ot C50.912 11/06/2015 URVASHI, BOBAN N Ot M81.0 11/06/2015 URVASHI, BOBAN N Ot Z17.0 11/06/2015 URVASHI, BOBAN N Ot Z79.810 11/06/2015 URVASHI, BOBAN N Ot Z79.899 11/06/2015 URVASHI, BOBAN N Ot Z90.12 11/27/2015 URVASHI, BOBAN N Ot M81.0 12/03/2015 URVASHI, BOBAN N Ot C50.412 12/03/2015 URVASHIMORGAN GARDNER N Ot M81.0 12/03/2015 URVASHIMORGAN N Ot Z17.0 12/03/2015 URVASHIINÉS GARDNERAN N Ot Z79.810 12/03/2015 URVASHIMORGAN N Ot Z79.899 12/03/2015 URVASHIMORGAN GARDNER N Ot Z90.12 12/04/2015 URVASHIMORGAN GARDNER N Ot C50.412 12/04/2015 URVASHIMORGAN N Ot M81.0 12/04/2015 URVASHIMORGAN N Ot Z17.0 12/04/2015 URVASHIINÉSAN N Ot Z79.810 12/04/2015 URVASHIINÉSAN N Ot Z79.899 12/04/2015 URVASHIMORGAN GARDNER N Ot Z90.12 12/23/2015 URVASHIMORGAN GARDNER N Ot C50.412 12/23/2015 URVASHIMORGAN GARDNER N Ot M81.0 12/23/2015 URVASHIMORGAN GARDNER N Ot Z17.0 12/23/2015 URVASHIMORGAN GARDNER N Ot Z79.810 12/23/2015 URVASHIMORGAN GRADNER N Ot Z79.899 12/23/2015 URVASHIMORGAN GARDNER N Ot Z90.12 01/13/2016 MORGAN LANDIN Maggie Ot C50.412 MALIG NEOPLASM OF UPPER-OUTER QUADRANT O 01/13/2016 MORGAN LANDIN N Ot M81.0 AGE- RELATED OSTEOPOROSIS W/O CURRENT PAT 01/13/2016 MORGAN LANDIN Maggie Ot 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+] 01/13/2016 URVASHI INÉSCHERISE Maggie Ot 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 01/13/2016 MORGAN LANDIN N Ot 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 01/13/2016 URVASHI MORGAN N Ot Z90.12 ACQUIRED ABSENCE OF LEFT BREAST AND NIPP 06/02/2016 MORGAN LANDIN N Ot C50.412 MALIG NEOPLASM OF UPPER-OUTER QUADRANT O 06/02/2016 URVASHI INÉSCHERISE N Ot M81.0 AGE- RELATED OSTEOPOROSIS W/O CURRENT PAT 06/02/2016 URVASHI MORGAN N Ot 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+] 06/02/2016 MORGAN LANDIN Ot 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 06/02/2016 MORGAN LANDIN N Ot 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 06/02/2016 MORGAN LANDIN Maggie Ot Z90.12 ACQUIRED ABSENCE OF LEFT BREAST AND NIPP 06/25/2016 MORGAN LANDIN Maggie Ot C50.412 MALIG NEOPLASM OF UPPER-OUTER QUADRANT O 06/25/2016 MORGAN LANDIN Maggie Ot M81.0 AGE- RELATED OSTEOPOROSIS W/O CURRENT PAT 06/25/2016 MORGAN LANDIN Maggie Ot 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+] 06/25/2016 MORGAN LANDIN aMggie Ot 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 06/25/2016 MORGAN LANDIN N Ot 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 06/25/2016 MORGAN LANDIN Maggie Ot Z90.12 ACQUIRED ABSENCE OF LEFT BREAST AND NIPP 06/29/2016 MORGAN LANDIN Maggie Ot C50.412 MALIG NEOPLASM OF UPPER-OUTER QUADRANT O 06/29/2016 MORGAN LANDIN Maggie Ot M81.0 AGE- RELATED OSTEOPOROSIS W/O CURRENT PAT 06/29/2016 MORGAN LANDIN Maggie Ot 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+] 06/29/2016 MORGAN LANDIN Maggie Ot 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 06/29/2016 MORGAN LANDIN Maggie Ot 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 06/29/2016 MORGAN LANDIN Maggie Ot Z90.12 ACQUIRED ABSENCE OF LEFT BREAST AND NIPP 12/15/2016 MORGAN LANDIN Maggie Ot C50.412 MALIG NEOPLASM OF UPPER-OUTER QUADRANT O 12/15/2016 MORGAN LANDIN Magige Ot F03.90 UNSPECIFIED DEMENTIA WITHOUT BEHAVIORAL 12/15/2016 URVASHIMORGAN GARDNER Maggie Ot I10 ESSENTIAL (PRIMARY) HYPERTENSION 12/15/2016 URVASHI, MORGAN Serrano Ot I48.91 UNSPECIFIED ATRIAL FIBRILLATION 12/15/2016 MORGAN LANDIN N Ot M81.0 AGE- RELATED OSTEOPOROSIS W/O CURRENT PAT 12/15/2016 MORGAN LANDIN Ot 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+] 12/15/2016 MORGAN LANDIN Ot 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 12/15/2016 MORGAN LANDIN N Ot 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 12/15/2016 MORGAN LANDIN Maggie Ot Z90.12 ACQUIRED ABSENCE OF LEFT BREAST AND NIPP 12/20/2016 MORGAN LANDIN Ot C50.412 MALIG NEOPLASM OF UPPER-OUTER QUADRANT O 12/20/2016 MORGAN LANDIN N Ot F03.90 UNSPECIFIED DEMENTIA WITHOUT BEHAVIORAL 12/20/2016 MORGAN LANDIN N Ot I10 ESSENTIAL (PRIMARY) HYPERTENSION 12/20/2016 MORGAN LANDIN N Ot I48.91 UNSPECIFIED ATRIAL FIBRILLATION 12/20/2016 MORGAN LANDIN Maggie Ot M81.0 AGE- RELATED OSTEOPOROSIS W/O CURRENT PAT 12/20/2016 MORGAN LANDIN Ot 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+] 12/20/2016 MORGAN LANDIN Ot 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 12/20/2016 MORGAN LANDIN Ot 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 12/20/2016 MORGAN LANDIN Maggie Ot Z90.12 ACQUIRED ABSENCE OF LEFT BREAST AND NIPP 01/10/2017 MORGAN LANDIN Ot C50.412 MALIG NEOPLASM OF UPPER-OUTER QUADRANT O 01/10/2017 MORGAN LANDIN N Ot F03.90 UNSPECIFIED DEMENTIA WITHOUT BEHAVIORAL 01/10/2017 MORGAN LANDIN N Ot I10 ESSENTIAL (PRIMARY) HYPERTENSION 01/10/2017 MORGAN LANDIN N Ot I48.91 UNSPECIFIED ATRIAL FIBRILLATION 01/10/2017 MORGAN LANDIN N Ot M81.0 AGE- RELATED OSTEOPOROSIS W/O CURRENT PAT 01/10/2017 MORGAN LANDIN N Ot 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+] 01/10/2017 MORGAN LANDIN N Ot 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 01/10/2017 MORGAN LANDIN Ot 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 01/10/2017 MORGAN LANDIN Ot Z90.12 ACQUIRED ABSENCE OF LEFT BREAST AND NIPP 01/14/2017 MORGAN LANDIN Ot C50.412 MALIG NEOPLASM OF UPPER-OUTER QUADRANT O 01/14/2017 MORGAN LANDIN Ot F03.90 UNSPECIFIED DEMENTIA WITHOUT BEHAVIORAL 01/14/2017 MORGAN LANDIN Ot I10 ESSENTIAL (PRIMARY) HYPERTENSION 01/14/2017 MORGAN LANDIN Ot I48.91 UNSPECIFIED ATRIAL FIBRILLATION 01/14/2017 MORGAN LANDIN Ot M81.0 AGE- RELATED OSTEOPOROSIS W/O CURRENT PAT 01/14/2017 MORGAN LANDIN Ot 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+] 01/14/2017 MORGAN LANDIN Ot 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 01/14/2017 MORGAN LANDIN Ot Z79.899 OTHER RETIREMENT (CURRENT) DRUG THERAPY 01/14/2017 MORGAN LANDIN Ot Z90.12 ACQUIRED ABSENCE OF LEFT BREAST AND NIPP 04/11/2017 Ot 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 04/11/2017 Ot 427.31 ATR IAL FIBRILLATION 04/11/2017 Ot 733.00 OST EOPOROSIS NOS 04/11/2017 Ot V45.71 ACQ UIRED ABSENCE OF BREAST AND NIPPLE 04/11/2017 Ot V58.69 OTH MED,LT,CURRENT USE 04/11/2017 Ot V86.0 ESTR OGEN RECEPTOR 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+] 04/11/2017 Ot 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 04/11/2017 Ot 276.8 HYPO POTASSEMIA 04/11/2017 Ot 427.31 ATR IAL FIBRILLATION 04/11/2017 Ot 733.00 OST EOPOROSIS NOS 04/11/2017 Ot V45.71 ACQ UIRED ABSENCE OF BREAST AND NIPPLE 04/11/2017 Ot V58.69 OTH MED,LT,CURRENT USE 04/11/2017 Ot V86.0 ESTR OGEN RECEPTOR 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+] 04/11/2017 Ot 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 04/11/2017 Ot 427.31 ATR IAL FIBRILLATION 04/11/2017 Ot 733.00 OST EOPOROSIS NOS 04/11/2017 Ot V45.71 ACQ UIRED ABSENCE OF BREAST AND NIPPLE 04/11/2017 Ot V58.69 OTH MED,LT,CURRENT USE 04/11/2017 Ot V86.0 ESTR OGEN RECEPTOR 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+] 04/11/2017 URVASHI, BOBAN N Ot 174.9 MALIGN NEOPL BREAST NOS 04/11/2017 URVASHI, BOBAN N Ot 427.31 ATRIAL FIBRILLATION 04/11/2017 URVASHI, BOBAN N Ot 733.00 OSTEOPOROSIS NOS 04/11/2017 URVASHI, BOBAN N Ot V45.71 ACQUIRED ABSENCE OF BREAST AND NIPPLE 04/11/2017 URVASHI, BOBAN N Ot V58.69 OTH MED,LT,CURRENT USE 04/11/2017 URVASHI, BOBAN N Ot V86.0 ESTROGEN RECEPTOR 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+] 04/11/2017 URVASHI, BOBAN N Ot 174.9 MALIGN NEOPL BREAST NOS 04/11/2017 URVASHI, BOBAN N Ot 733.00 OSTEOPOROSIS NOS 04/11/2017 URVASHI, BOBAN N Ot V45.71 ACQUIRED ABSENCE OF BREAST AND NIPPLE 04/11/2017 URVASHI, BOBAN N Ot V58.69 OTH MED,LT,CURRENT USE 04/11/2017 URVASHI, BOBAN N Ot 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.0 ESTROGEN RECEPTOR 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+] 04/11/2017 URVASHI, BOBAN N Ot 174.9 MALIGN NEOPL BREAST NOS 04/11/2017 URVASHI, BOBAN N Ot 733.00 OSTEOPOROSIS NOS 04/11/2017 URVASHI, BOBAN N Ot V45.71 ACQUIRED ABSENCE OF BREAST AND NIPPLE 04/11/2017 URVASHI, BOBAN N Ot V58.69 OTH MED,LT,CURRENT USE 04/11/2017 URVASHI, BOBAN N Ot 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.0 ESTROGEN RECEPTOR 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+] 04/11/2017 URVASHI, BOBAN N Ot 174.9 MALIGN NEOPL BREAST NOS 04/11/2017 URVASHI, BOBAN N Ot 427.31 ATRIAL FIBRILLATION 04/11/2017 URVASHI, BOBAN N Ot 733.00 OSTEOPOROSIS NOS 04/11/2017 URVASHI, BOBAN N Ot V45.71 ACQUIRED ABSENCE OF BREAST AND NIPPLE 04/11/2017 MORGAN LANDIN N Ot V58.69 OTH MED,LT,CURRENT USE 04/11/2017 URVASHIMORGAN N Ot V86.0 ESTROGEN RECEPTOR 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+] 04/11/2017 URVASHI, BOBAN N Ot 174.9 MALIGN NEOPL BREAST NOS 04/11/2017 URVASHI, BOBAN N Ot 427.31 ATRIAL FIBRILLATION 04/11/2017 URVASHI BOBAN N Ot 733.00 OSTEOPOROSIS NOS 04/11/2017 URVASHIINÉSAN N Ot V45.71 ACQUIRED ABSENCE OF BREAST AND NIPPLE 04/11/2017 MORGAN LANDIN N Ot V58.69 OTH MED,LT,CURRENT USE 04/11/2017 URVASHIMORGAN N Ot 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.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9 MALIGN NEOPL BREAST NOS 04/11/2017 URVASHI, BOBAN N Ot 733.00 OSTEOPOROSIS NOS 04/11/2017 URVASHI BOBAN N Ot V45.71 ACQUIRED ABSENCE OF BREAST AND NIPPLE 04/11/2017 URVASHIINÉSAN N Ot V58.69 OTH MED,LT,CURRENT USE 04/11/2017 URVASHIINÉSAN N Ot 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.0 ESTROGEN RECEPTOR 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+] 04/11/2017 URVASHI, BOBAN N Ot 733.00 OSTEOPOROSIS NOS 04/11/2017 URVASHI, BOBAN N Ot V58.69 OTH MED,LT,CURRENT USE 04/11/2017 MORGAN LANDIN Ot 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 04/11/2017 MORGAN LANDIN Ot M81.0 AGE- RELATED OSTEOPOROSIS W/O CURRENT PAT 04/11/2017 MOGRAN LANDIN Ot 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+] 04/11/2017 MORGAN LANDIN Ot 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 04/11/2017 MORGAN LANDIN Ot Z79.899 OTHER RETIREMENT (CURRENT) DRUG THERAPY 04/11/2017 MORGAN LANDIN Ot Z90.12 ACQUIRED ABSENCE OF LEFT BREAST AND NIPP 04/11/2017 MORGAN LANDIN Ot M81.0 AGE- RELATED OSTEOPOROSIS W/O CURRENT PAT 04/11/2017 MORGAN LANDIN Ot C50.412 MALIG NEOPLASM OF UPPER-OUTER QUADRANT O 04/11/2017 MORGAN LANDIN Ot M81.0 AGE- RELATED OSTEOPOROSIS W/O CURRENT PAT 04/11/2017 MORGAN LANDIN Ot 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+] 04/11/2017 MORGAN LANDIN Ot 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 04/11/2017 MORGAN LANDIN Ot 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 04/11/2017 MORGAN LANDIN Ot Z90.12 ACQUIRED ABSENCE OF LEFT BREAST AND NIPP 04/11/2017 MORGAN LANDIN Ot C50.412 MALIG NEOPLASM OF UPPER-OUTER QUADRANT O 04/11/2017 MORGAN LANDIN N Ot M81.0 AGE- RELATED OSTEOPOROSIS W/O CURRENT PAT 04/11/2017 MORGAN LANDIN N Ot 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+] 04/11/2017 MORGAN LANDIN Ot 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 04/11/2017 MORGAN LANDIN N Ot Z79.899 OTHER RETIREMENT (CURRENT) DRUG THERAPY 04/11/2017 MORGAN LANDIN N Ot Z90.12 ACQUIRED ABSENCE OF LEFT BREAST AND NIPP 04/11/2017 MORGAN LANDIN Ot C50.412 MALIG NEOPLASM OF UPPER-OUTER QUADRANT O 04/11/2017 OMRGAN LANDIN Ot F03.90 UNSPECIFIED DEMENTIA WITHOUT BEHAVIORAL 04/11/2017 MORGAN LANDIN Ot I10 ESSENTIAL (PRIMARY) HYPERTENSION 04/11/2017 MORGAN LANDIN Ot I48.91 UNSPECIFIED ATRIAL FIBRILLATION 04/11/2017 MORGAN LANDIN Ot M81.0 AGE- RELATED OSTEOPOROSIS W/O CURRENT PAT 04/11/2017 MORGAN LANDIN Ot 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+] 04/11/2017 MORGAN LANDIN Ot 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 04/11/2017 MORGAN LANDIN Maggie Ot Z79.899 OTHER RETIREMENT (CURRENT) DRUG THERAPY 04/11/2017 MORGAN LANDIN Ot Z90.12 ACQUIRED ABSENCE OF LEFT BREAST AND NIPP 04/12/2017 Adolfo FRANCO MD Ot I10 ESSENTIAL (PRIMARY) HYPERTENSION 04/12/2017 Adolfo FRANCO MD Ot I48.91 UNSPECIFIED ATRIAL FIBRILLATION 04/12/2017 Adolfo FRANCO MD Ot R05 COUGH 04/12/2017 Adolfo FRANCO MD Ot R55 SYNCOPE AND COLLAPSE 04/12/2017 Adolfo FRANCO MD Ot I10 ESSENTIAL (PRIMARY) HYPERTENSION 04/12/2017 Adolfo FRANCO MD Ot I48.91 UNSPECIFIED ATRIAL FIBRILLATION 04/12/2017 Adolfo FRANCO MD Ot R55 SYNCOPE AND COLLAPSE 04/17/2017 Adolfo FRANCO MD Ot I10 ESSENTIAL (PRIMARY) HYPERTENSION 04/17/2017 Adolfo FRANCO MD Ot I48.91 UNSPECIFIED ATRIAL FIBRILLATION 04/17/2017 Adolfo FRANCO MD Ot R05 COUGH 04/17/2017 Adolfo FRANCO MD Ot R55 SYNCOPE AND COLLAPSE 05/13/2017 Adolfo FRANCO MD Ot I10 ESSENTIAL (PRIMARY) HYPERTENSION 05/13/2017 Adolfo FRANCO MD Ot I48.91 UNSPECIFIED ATRIAL FIBRILLATION 05/13/2017 JOAN CARLSON, Adolfo FISHMAN Ot R05 COUGH 05/13/2017 JOAN CARLSON, Adolfo FISHMAN Ot R55 SYNCOPE AND COLLAPSE 05/14/2017 JOAN CARLSON, Adolfo FISHMAN Ot I10 ESSENTIAL (PRIMARY) HYPERTENSION 05/14/2017 JOAN CARLSON, Adolfo FISHMAN Ot I48.91 UNSPECIFIED ATRIAL FIBRILLATION 05/14/2017 JOAN CARLSON, Adolfo FISHMAN Ot R05 COUGH 05/14/2017 JOAN CARLSON, Adolfo FISHMAN Ot R55 SYNCOPE AND COLLAPSE 05/18/2017 Adolfo FRANCO MD Ot I10 ESSENTIAL (PRIMARY) HYPERTENSION 05/18/2017 JOAN CARLSON, Adolfo FISHMAN Ot I48.91 UNSPECIFIED ATRIAL FIBRILLATION 05/18/2017 Adolfo FRANCO MD Ot R55 SYNCOPE AND COLLAPSE 05/25/2017 Adolfo FRANCO MD Ot I10 ESSENTIAL (PRIMARY) HYPERTENSION 05/25/2017 JOAN CARLSON, Adolfo FISHMAN Ot I48.91 UNSPECIFIED ATRIAL FIBRILLATION 05/25/2017 Adolfo FRANCO MD Ot R55 SYNCOPE AND COLLAPSE 06/07/2017 Ot 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 06/07/2017 Ot 427.31 ATR IAL FIBRILLATION 06/07/2017 Ot 733.00 OST EOPOROSIS NOS 06/07/2017 Ot V45.71 ACQ UIRED ABSENCE OF BREAST AND NIPPLE 06/07/2017 Ot V58.69 OTH MED,LT,CURRENT USE 06/07/2017 Ot V86.0 ESTR OGEN RECEPTOR 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+] 06/07/2017 Ot 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 06/07/2017 Ot 276.8 HYPO POTASSEMIA 06/07/2017 Ot 427.31 ATR IAL FIBRILLATION 06/07/2017 Ot 733.00 OST EOPOROSIS NOS 06/07/2017 Ot V45.71 ACQ UIRED ABSENCE OF BREAST AND NIPPLE 06/07/2017 Ot V58.69 OTH MED,LT,CURRENT USE 06/07/2017 Ot V86.0 ESTR OGEN RECEPTOR 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+] 06/07/2017 Ot 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 06/07/2017 Ot 427.31 ATR IAL FIBRILLATION 06/07/2017 Ot 733.00 OST EOPOROSIS NOS 06/07/2017 Ot V45.71 ACQ UIRED ABSENCE OF BREAST AND NIPPLE 06/07/2017 Ot V58.69 OTH MED,LT,CURRENT USE 06/07/2017 Ot V86.0 ESTR OGEN RECEPTOR 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+] 06/07/2017 URVASHI, BOBAN N Ot 174.9 MALIGN NEOPL BREAST NOS 06/07/2017 URVASHI, BOBAN N Ot 427.31 ATRIAL FIBRILLATION 06/07/2017 URVASHI, BOBAN N Ot 733.00 OSTEOPOROSIS NOS 06/07/2017 URVASHI, BOBAN N Ot V45.71 ACQUIRED ABSENCE OF BREAST AND NIPPLE 06/07/2017 URVASHI, BOBAN N Ot V58.69 OTH MED,LT,CURRENT USE 06/07/2017 URVASHI, BOBAN N Ot V86.0 ESTROGEN RECEPTOR 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+] 06/07/2017 URVASHI, BOBAN N Ot 174.9 MALIGN NEOPL BREAST NOS 06/07/2017 URVASHI, BOBAN N Ot 733.00 OSTEOPOROSIS NOS 06/07/2017 URVASHI, BOBAN N Ot V45.71 ACQUIRED ABSENCE OF BREAST AND NIPPLE 06/07/2017 URVASHI, BOBAN N Ot V58.69 OTH MED,LT,CURRENT USE 06/07/2017 URVASHI, BOBAN N Ot V86.0 ESTROGEN RECEPTOR 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+] 06/07/2017 URVASHI, BOBAN N Ot 174.9 MALIGN NEOPL BREAST NOS 06/07/2017 URVASHI, BOBAN N Ot 733.00 OSTEOPOROSIS NOS 06/07/2017 URVASHI, BOBAN N Ot V45.71 ACQUIRED ABSENCE OF BREAST AND NIPPLE 06/07/2017 URVASHI, BOBAN N Ot V58.69 OTH MED,LT,CURRENT USE 06/07/2017 URVASHI, BOBAN N Ot V86.0 ESTROGEN RECEPTOR 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+] 06/07/2017 URVASHI, BOBAN N Ot 174.9 MALIGN NEOPL BREAST NOS 06/07/2017 URVASHI, BOBAN N Ot 427.31 ATRIAL FIBRILLATION 06/07/2017 URVASHI, BOBAN N Ot 733.00 OSTEOPOROSIS NOS 06/07/2017 URVASHI, BOBAN N Ot V45.71 ACQUIRED ABSENCE OF BREAST AND NIPPLE 06/07/2017 MORGAN LANDIN N Ot V58.69 OTH MED,LT,CURRENT USE 06/07/2017 MORGAN LANDIN N Ot V86.0 ESTROGEN RECEPTOR 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+] 06/07/2017 URVASHI BOBAN N Ot 174.9 MALIGN NEOPL BREAST NOS 06/07/2017 URVASHI BOBAN N Ot 427.31 ATRIAL FIBRILLATION 06/07/2017 URVASHI BOBAN N Ot 733.00 OSTEOPOROSIS NOS 06/07/2017 URVASHI BOBAN N Ot V45.71 ACQUIRED ABSENCE OF BREAST AND NIPPLE 06/07/2017 INÉS LANDINAN N Ot V58.69 OTH MED,LT,CURRENT USE 06/07/2017 MORGAN LANDIN N Ot V86.0 ESTROGEN RECEPTOR 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+] 06/07/2017 INÉS LANDINAN N Ot 174.9 MALIGN NEOPL BREAST NOS 06/07/2017 MORGAN LANDIN N Ot 427.31 ATRIAL FIBRILLATION 06/07/2017 URVASHIMORGAN GARDNER N Ot 733.00 OSTEOPOROSIS NOS 06/07/2017 URVASHI BOBCHERISE N Ot V45.71 ACQUIRED ABSENCE OF BREAST AND NIPPLE 06/07/2017 MORGAN LANDIN N Ot V58.69 OTH MED,LT,CURRENT USE 06/07/2017 MORGAN LANDIN N Ot V86.0 ESTROGEN RECEPTOR 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+] 06/07/2017 URVASHI BOBAN N Ot 733.00 OSTEOPOROSIS NOS 06/07/2017 MORGAN LANDIN N Ot V58.69 OTH MED,LT,CURRENT USE 06/07/2017 MORGAN LANDIN N Ot 110.1 DERMATOPHYTOSIS OF NAIL 06/07/2017 URVASHI BOBAN N Ot 174.9 MALIGN NEOPL BREAST NOS 06/07/2017 URVASHI BOBAN N Ot 733.00 OSTEOPOROSIS NOS 06/07/2017 URVASHI BOBAN N Ot V45.71 ACQUIRED ABSENCE OF BREAST AND NIPPLE 06/07/2017 URVASHIMORGAN N Ot V58.69 OTH MED,LT,CURRENT USE 06/07/2017 URVASHI, BOBAN N Ot V86.0 ESTROGEN RECEPTOR 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+] 06/07/2017 URVASHI BOBAN N Ot 733.00 OSTEOPOROSIS NOS 06/07/2017 MORGAN LANDIN Ot V58.69 OTH MED,LT,CURRENT USE 06/07/2017 MORGAN LANDIN Ot 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 06/07/2017 MORGAN LANDIN Ot M81.0 AGE- RELATED OSTEOPOROSIS W/O CURRENT PAT 06/07/2017 MORGAN LANDIN Ot 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+] 06/07/2017 MORGAN LANDIN Ot 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 06/07/2017 MORGAN LANDIN N Ot Z79.899 OTHER RETIREMENT (CURRENT) DRUG THERAPY 06/07/2017 MORGAN LANDIN N Ot Z90.12 ACQUIRED ABSENCE OF LEFT BREAST AND NIPP 06/07/2017 MORGAN LANDIN N Ot M81.0 AGE- RELATED OSTEOPOROSIS W/O CURRENT PAT 06/07/2017 MORGAN LANDIN N Ot C50.412 MALIG NEOPLASM OF UPPER-OUTER QUADRANT O 06/07/2017 MORGAN LANDIN N Ot M81.0 AGE- RELATED OSTEOPOROSIS W/O CURRENT PAT 06/07/2017 MORGAN LANDIN N Ot 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+] 06/07/2017 MORGAN LANDIN N Ot 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 06/07/2017 MORGAN LANDIN N Ot Z79.899 OTHER RETIREMENT (CURRENT) DRUG THERAPY 06/07/2017 MORGAN LANDIN N Ot Z90.12 ACQUIRED ABSENCE OF LEFT BREAST AND NIPP 06/07/2017 MORGAN LANDIN N Ot C50.412 MALIG NEOPLASM OF UPPER-OUTER QUADRANT O 06/07/2017 MORGAN LANDIN N Ot M81.0 AGE- RELATED OSTEOPOROSIS W/O CURRENT PAT 06/07/2017 MORGAN LANDIN N Ot 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+] 06/07/2017 MORGAN LANDIN N Ot 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 06/07/2017 MORGAN LANDIN N Ot Z79.899 OTHER RETIREMENT (CURRENT) DRUG THERAPY 06/07/2017 MORGAN LANDIN N Ot Z90.12 ACQUIRED ABSENCE OF LEFT BREAST AND NIPP 06/07/2017 URVASHI INÉSCHERISE Maggie Ot C50.412 MALIG NEOPLASM OF UPPER-OUTER QUADRANT O 06/07/2017 URVASHIMORGAN Ot F03.90 UNSPECIFIED DEMENTIA WITHOUT BEHAVIORAL 06/07/2017 URVASHIMORGAN Ot I10 ESSENTIAL (PRIMARY) HYPERTENSION 06/07/2017 URVASHIMORGAN Ot I48.91 UNSPECIFIED ATRIAL FIBRILLATION 06/07/2017 URVASHIMORGAN Ot M81.0 AGE- RELATED OSTEOPOROSIS W/O CURRENT PAT 06/07/2017 URVASHIMORGAN Ot 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+] 06/07/2017 URVASHIMORGAN Ot 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 06/07/2017 URVASHIMORGAN Ot Z79.899 OTHER RETIREMENT (CURRENT) DRUG THERAPY 06/07/2017 URVASHIMORGAN Ot Z90.12 ACQUIRED ABSENCE OF LEFT BREAST AND NIPP 06/07/2017 JOAN CARLSON, M KYE Ot I10 ESSENTIAL (PRIMARY) HYPERTENSION 06/07/2017 JOAN CARLSON, M KYE Ot I48.91 UNSPECIFIED ATRIAL FIBRILLATION 06/07/2017 JOAN CARLSON, M KYE Ot R05 COUGH 06/07/2017 JOAN CARLSON, M KYE Ot R55 SYNCOPE AND COLLAPSE 06/07/2017 JOAN CARLSON, M KYE Ot I10 ESSENTIAL (PRIMARY) HYPERTENSION 06/07/2017 OJAN CARLSON, M KYE Ot I48.91 UNSPECIFIED ATRIAL FIBRILLATION 06/07/2017 JOAN CARLSON, M KYE Ot R55 SYNCOPE AND COLLAPSE 06/08/2017 MORGAN LANDIN Ot F03.90 UNSPECIFIED DEMENTIA WITHOUT BEHAVIORAL 06/08/2017 MORGAN LANDIN Ot I10 ESSENTIAL (PRIMARY) HYPERTENSION 06/08/2017 MORGAN LANDIN Ot I48.91 UNSPECIFIED ATRIAL FIBRILLATION 06/08/2017 MORGAN LANDIN Ot M81.0 AGE- RELATED OSTEOPOROSIS W/O CURRENT PAT 06/08/2017 MORGAN LANDIN Ot Z08 ENCNTR FOR FOLLOW-UP EXAM AFTER TRTMT FO 06/08/2017 MORGAN LANDIN Ot 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+] 06/08/2017 MORGAN LANDIN Ot 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 06/08/2017 MORGAN LANDIN Ot Z79.899 OTHER RETIREMENT (CURRENT) DRUG THERAPY 06/08/2017 MORGAN LANDIN Ot Z85.3 PERSONAL HISTORY OF MALIGNANT NEOPLASM O 06/08/2017 MORGAN LANDIN Ot Z90.12 ACQUIRED ABSENCE OF LEFT BREAST AND NIPP 06/15/2017 MORGAN LANDIN Ot F03.90 UNSPECIFIED DEMENTIA WITHOUT BEHAVIORAL 06/15/2017 MORGAN LANDIN Maggie Ot I10 ESSENTIAL (PRIMARY) HYPERTENSION 06/15/2017 MORGAN LANDIN Maggie Ot I48.91 UNSPECIFIED ATRIAL FIBRILLATION 06/15/2017 MORGAN LANDIN Ot M81.0 AGE- RELATED OSTEOPOROSIS W/O CURRENT PAT 06/15/2017 MORGAN LANDIN Ot Z08 ENCNTR FOR FOLLOW-UP EXAM AFTER TRTMT FO 06/15/2017 MORGAN LANDIN Ot 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+] 06/15/2017 MORGAN LANDIN Ot 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 06/15/2017 MORGAN LANDIN Ot Z79.899 OTHER RETIREMENT (CURRENT) DRUG THERAPY 06/15/2017 MORGAN LANDIN Ot Z85.3 PERSONAL HISTORY OF MALIGNANT NEOPLASM O 06/15/2017 MORGAN LANDIN Ot Z90.12 ACQUIRED ABSENCE OF LEFT BREAST AND NIPP 06/18/2017 JOAN CARLSON, Adolfo FISHMAN Ot I10 ESSENTIAL (PRIMARY) HYPERTENSION 06/18/2017 Adolfo FRANCO MD Ot I48.91 UNSPECIFIED ATRIAL FIBRILLATION 06/18/2017 Adolfo FRANCO MD Ot R55 SYNCOPE AND COLLAPSE 06/21/2017 Adolfo FRANCO MD Ot I10 ESSENTIAL (PRIMARY) HYPERTENSION 06/21/2017 Adolfo FRANCO MD Ot I48.91 UNSPECIFIED ATRIAL FIBRILLATION 06/21/2017 Adolfo FRANCO MD Ot R55 SYNCOPE AND COLLAPSE 06/24/2017 JOAN CARLSON, Adolfo FISHMAN Ot I10 ESSENTIAL (PRIMARY) HYPERTENSION 06/24/2017 JOAN CARLSON, Adolfo FISHMAN Ot I48.91 UNSPECIFIED ATRIAL FIBRILLATION 06/24/2017 JOAN CARLSON, Adolfo FISHMAN Ot R55 SYNCOPE AND COLLAPSE 01/16/2018 URVASHIMORGAN GARDNER N Ot F03.90 UNSPECIFIED DEMENTIA WITHOUT BEHAVIORAL 01/16/2018 URVASHIMORGAN GARDNER N Ot I10 ESSENTIAL (PRIMARY) HYPERTENSION 01/16/2018 URVASHIMORGAN N Ot I48.91 UNSPECIFIED ATRIAL FIBRILLATION 01/16/2018 URVASHIMORGAN GARDNER N Ot M81.0 AGE- RELATED OSTEOPOROSIS W/O CURRENT PAT 01/16/2018 URVASHIMORGAN GARDNER N Ot R19.7 DIARRHEA, UNSPECIFIED 01/16/2018 URVASHIMORGAN GARDNER N Ot Z08 ENCNTR FOR FOLLOW-UP EXAM AFTER TRTMT FO 01/16/2018 MORGAN LANDIN N Ot 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 01/16/2018 URVASHIMORGAN GARDNER N Ot Z79.899 OTHER RETIREMENT (CURRENT) DRUG THERAPY 01/16/2018 URVASHIMORGAN GARDNER N Ot Z85.3 PERSONAL HISTORY OF MALIGNANT NEOPLASM O 01/16/2018 URVASHIMORGAN GARDNER N Ot Z90.12 ACQUIRED ABSENCE OF LEFT BREAST AND NIPP 01/19/2018 MORGAN LANDIN N Ot F03.90 UNSPECIFIED DEMENTIA WITHOUT BEHAVIORAL 01/19/2018 URVASHIMORGAN GARDNER N Ot I10 ESSENTIAL (PRIMARY) HYPERTENSION 01/19/2018 URVASHIMORGAN GARDNER N Ot I48.91 UNSPECIFIED ATRIAL FIBRILLATION 01/19/2018 URVASHIMORGAN GARDNER N Ot M81.0 AGE- RELATED OSTEOPOROSIS W/O CURRENT PAT 01/19/2018 MORGAN LANDIN N Ot R19.7 DIARRHEA, UNSPECIFIED 01/19/2018 URVASHIMORGAN GARDNER N Ot Z08 ENCNTR FOR FOLLOW-UP EXAM AFTER TRTMT FO 01/19/2018 MORGAN LANDIN N Ot Z79.01 RETIREMENT (CURRENT) USE OF 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 01/19/2018 URVASHIMORGAN N Ot Z79.899 OTHER RETIREMENT (CURRENT) DRUG THERAPY 01/19/2018 URVASHIMORGAN GARDNER N Ot Z85.3 PERSONAL HISTORY OF MALIGNANT NEOPLASM O 01/19/2018 OMRGAN LANDIN N Ot Z90.12 ACQUIRED ABSENCE OF LEFT BREAST AND NIPP 02/27/2018 MORGAN LANDIN N Ot F03.90 UNSPECIFIED DEMENTIA WITHOUT BEHAVIORAL 02/27/2018 MORGAN LANDIN N Ot I10 ESSENTIAL (PRIMARY) HYPERTENSION 02/27/2018 MORGAN LANDIN N Ot I48.91 UNSPECIFIED ATRIAL FIBRILLATION 02/27/2018 MORGAN LANDIN N Ot M81.0 AGE- RELATED OSTEOPOROSIS W/O CURRENT PAT 02/27/2018 MORGAN LANDIN N Ot R19.7 DIARRHEA, UNSPECIFIED 02/27/2018 MORGAN LANDIN N Ot Z08 ENCNTR FOR FOLLOW-UP EXAM AFTER TRTMT FO 02/27/2018 MORGAN LANDIN N Ot Z79.01 RETIREMENT (CURRENT) USE OF 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 02/27/2018 MORGAN LANDIN N Ot Z79.899 OTHER RETIREMENT (CURRENT) DRUG THERAPY 02/27/2018 MORGAN LANDIN N Ot Z85.3 PERSONAL HISTORY OF MALIGNANT NEOPLASM O 02/27/2018 MORGAN LANDIN N Ot Z90.12 ACQUIRED ABSENCE OF LEFT BREAST AND NIPP 06/18/2018 MORGAN LANDIN N Ot F03.90 UNSPECIFIED DEMENTIA WITHOUT BEHAVIORAL 06/18/2018 MORGAN LANDIN N Ot I10 ESSENTIAL (PRIMARY) HYPERTENSION 06/18/2018 MORGAN LANDIN N Ot I48.91 UNSPECIFIED ATRIAL FIBRILLATION 06/18/2018 MORGAN LANDIN N Ot M81.0 AGE- RELATED OSTEOPOROSIS W/O CURRENT PAT 06/18/2018 MORGAN LANDIN N Ot R82.90 UNSPECIFIED ABNORMAL FINDINGS IN URINE 06/18/2018 MORGAN LANDIN N Ot Z08 ENCNTR FOR FOLLOW-UP EXAM AFTER TRTMT FO 06/18/2018 MORGAN LANDIN N Ot 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 06/18/2018 MORGAN LANDIN N Ot Z79.899 OTHER RETIREMENT (CURRENT) DRUG THERAPY 06/18/2018 MORGAN LANDIN N Ot Z85.3 PERSONAL HISTORY OF MALIGNANT NEOPLASM O 06/18/2018 MORGAN LANDIN N Ot Z90.12 ACQUIRED ABSENCE OF LEFT BREAST AND NIPP 06/20/2018 MORGAN LANDNI N Ot F03.90 UNSPECIFIED DEMENTIA WITHOUT BEHAVIORAL 06/20/2018 MORGAN LANDIN N Ot I10 ESSENTIAL (PRIMARY) HYPERTENSION 06/20/2018 MORGAN LANDIN N Ot I48.91 UNSPECIFIED ATRIAL FIBRILLATION 06/20/2018 MORGAN LANDIN N Ot M81.0 AGE- RELATED OSTEOPOROSIS W/O CURRENT PAT 06/20/2018 MORGAN LANDIN N Ot R82.90 UNSPECIFIED ABNORMAL FINDINGS IN URINE 06/20/2018 MORGAN LANDIN Maggie Ot Z08 ENCNTR FOR FOLLOW-UP EXAM AFTER TRTMT FO 06/20/2018 URVASHI MORGAN Serrano Ot 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 06/20/2018 MORGAN LANDIN N Ot 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 06/20/2018 MORGAN LANDIN Ot Z85.3 PERSONAL HISTORY OF MALIGNANT NEOPLASM O 06/20/2018 MORGAN LANDIN Ot Z90.12 ACQUIRED ABSENCE OF LEFT BREAST AND NIPP 01/10/2019 MORGAN LANDIN Ot F03.90 UNSPECIFIED DEMENTIA WITHOUT BEHAVIORAL 01/10/2019 MORGAN LANDIN Maggie Ot I10 ESSENTIAL (PRIMARY) HYPERTENSION 01/10/2019 MORGAN LANDIN Maggie Ot I48.91 UNSPECIFIED ATRIAL FIBRILLATION 01/10/2019 MORGAN LANDIN Maggie Ot M81.0 AGE- RELATED OSTEOPOROSIS W/O CURRENT PAT 01/10/2019 URVASHI INÉSCHERISE Maggie Ot R82.90 UNSPECIFIED ABNORMAL FINDINGS IN URINE 01/10/2019 MORGAN LANDIN Maggie Ot Z08 ENCNTR FOR FOLLOW-UP EXAM AFTER TRTMT FO 01/10/2019 URVASHI MORGAN Serrano Ot 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+] 01/10/2019 URVASHIMORGAN Ot 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 01/10/2019 MORGAN LANDIN N Ot 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 01/10/2019 URVASHIMORGAN GARDNER Ot 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 01/10/2019 MORGAN LANDIN N Ot Z85.3 PERSONAL HISTORY OF MALIGNANT NEOPLASM O 01/10/2019 MORGAN LANDIN Ot Z90.12 ACQUIRED ABSENCE OF LEFT BREAST AND NIPP 01/11/2019 MORGAN LANDIN Ot F03.90 UNSPECIFIED DEMENTIA WITHOUT BEHAVIORAL 01/11/2019 MORGAN LANDIN N Ot I10 ESSENTIAL (PRIMARY) HYPERTENSION 01/11/2019 MORGAN LANDIN Ot I48.91 UNSPECIFIED ATRIAL FIBRILLATION 01/11/2019 MORGAN LANDIN Ot M81.0 AGE- RELATED OSTEOPOROSIS W/O CURRENT PAT 01/11/2019 MORGAN LANDIN Ot R82.90 UNSPECIFIED ABNORMAL FINDINGS IN URINE 01/11/2019 MORGAN LANDIN Ot Z08 ENCNTR FOR FOLLOW-UP EXAM AFTER TRTMT FO 01/11/2019 MORGAN LANDIN Ot 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+] 01/11/2019 MORGAN LANDIN Maggie Ot Z79.01 RETIREMENT (CURRENT) USE OF 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 01/11/2019 MORGAN LANDIN Maggie Ot 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 01/11/2019 MORGAN LANDIN Maggie Ot Z79.899 OTHER RETIREMENT (CURRENT) DRUG THERAPY 01/11/2019 MORGAN LANDIN Maggie Ot Z85.3 PERSONAL HISTORY OF MALIGNANT NEOPLASM O 01/11/2019 MORGAN LANDIN Ot Z90.12 ACQUIRED ABSENCE OF LEFT BREAST AND NIPP 03/11/2019 MORGAN LANDIN Ot F03.90 UNSPECIFIED DEMENTIA WITHOUT BEHAVIORAL 03/11/2019 MORGAN LANDIN Ot I10 ESSENTIAL (PRIMARY) HYPERTENSION 03/11/2019 MORGAN LANDIN Ot I48.91 UNSPECIFIED ATRIAL FIBRILLATION 03/11/2019 MORGAN LANDIN Ot M81.0 AGE- RELATED OSTEOPOROSIS W/O CURRENT PAT 03/11/2019 MORGAN LANDIN Ot R82.90 UNSPECIFIED ABNORMAL FINDINGS IN URINE 03/11/2019 MORGAN LANDIN Ot Z08 ENCNTR FOR FOLLOW-UP EXAM AFTER TRTMT FO 03/11/2019 MORGAN LANDIN Maggie Ot 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+] 03/11/2019 MORGAN LANDIN Maggie Ot Z79.01 RETIREMENT (CURRENT) USE OF 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 03/11/2019 MORGAN LANDIN Magige Ot 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 03/11/2019 MORGAN LANDIN Maggie Ot 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 03/11/2019 MORGAN LANDIN Maggie Ot Z85.3 PERSONAL HISTORY OF MALIGNANT NEOPLASM O 03/11/2019 URVASHI INÉSCHERISE Maggie Ot Z90.12 ACQUIRED ABSENCE OF LEFT BREAST AND NIPP 03/14/2019 MORGAN LANDIN Maggie Ot F03.90 UNSPECIFIED DEMENTIA WITHOUT BEHAVIORAL 03/14/2019 URVASHI INÉSCHERISE Maggie Ot I10 ESSENTIAL (PRIMARY) HYPERTENSION 03/14/2019 URVASHI INÉSCHERISE Maggie Ot I48.91 UNSPECIFIED ATRIAL FIBRILLATION 03/14/2019 URVASHI INÉSCHERISE Maggie Ot M81.0 AGE- RELATED OSTEOPOROSIS W/O CURRENT PAT 03/14/2019 MORGAN LANDIN Maggie Ot R82.90 UNSPECIFIED ABNORMAL FINDINGS IN URINE 03/14/2019 MORGAN LANDIN Maggie Ot Z08 ENCNTR FOR FOLLOW-UP EXAM AFTER TRTMT FO 03/14/2019 MORGAN LANDIN Maggie Ot 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+] 03/14/2019 MORGAN LANDIN Maggie Ot Z79.01 RETIREMENT (CURRENT) USE OF 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 03/14/2019 MORGAN LANDIN Maggie Ot 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 03/14/2019 MORGAN LANDIN Maggie Ot 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 03/14/2019 MORGAN LANDIN Maggie Ot Z85.3 PERSONAL HISTORY OF MALIGNANT NEOPLASM O 03/14/2019 MORGAN LANDIN Maggie Ot Z90.12 ACQUIRED ABSENCE OF LEFT BREAST AND NIPP 05/14/2019 JOAN CARLSON, Adolfo FISHMAN Ot G45 .9 TRANSIENT CEREBRAL ISCHEMIC ATTACK, UNSP 05/14/2019 JOAN CARLSON, Adolfo FISHMAN Ot G45 .9 TRANSIENT CEREBRAL ISCHEMIC ATTACK, UNSP 05/16/2019 JOAN CARLSON, Adolfo FISHMAN Ot G45 .9 TRANSIENT CEREBRAL ISCHEMIC ATTACK, UNS 05/16/2019 JOAN CARLSON, Adolfo FISHMAN Ot G45 .9 TRANSIENT CEREBRAL ISCHEMIC ATTACK, UNSP 05/30/2019 JOAN CARLSON, Adolfo FISHMAN Ot G45 .9 TRANSIENT CEREBRAL ISCHEMIC ATTACK, UNSP 05/31/2019 MORGAN LANDIN Ot 174.9 MALIGN NEOPL BREAST NOS 05/31/2019 URVASHI, BOBAN N Ot 427.31 ATRIAL FIBRILLATION 05/31/2019 URVASHI, BOBAN N Ot 733.00 OSTEOPOROSIS NOS 05/31/2019 URVASHI, BOBAN N Ot V45.71 ACQUIRED ABSENCE OF BREAST AND NIPPLE 05/31/2019 URVASHI, BOBAN N Ot V58.69 OTH MED,LT,CURRENT USE 05/31/2019 URVASHI, BOBAN N Ot V86.0 ESTROGEN RECEPTOR 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+] 05/31/2019 URVASHI, BOBAN N Ot 174.9 MALIGN NEOPL BREAST NOS 05/31/2019 URVASHI, BOBAN N Ot 427.31 ATRIAL FIBRILLATION 05/31/2019 URVASHI, BOBAN N Ot 733.00 OSTEOPOROSIS NOS 05/31/2019 URVASHI, BOBAN N Ot V45.71 ACQUIRED ABSENCE OF BREAST AND NIPPLE 05/31/2019 URVASHI, BOBAN N Ot V58.69 OTH MED,LT,CURRENT USE 05/31/2019 URVASHI, BOBAN N Ot V86.0 ESTROGEN RECEPTOR 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+] 05/31/2019 URVASHI, BOBAN N Ot 174.9 MALIGN NEOPL BREAST NOS 05/31/2019 URVASHI, BOBAN N Ot 427.31 ATRIAL FIBRILLATION 05/31/2019 URVASHI, BOBAN N Ot 733.00 OSTEOPOROSIS NOS 05/31/2019 URVASHI, BOBAN N Ot V45.71 ACQUIRED ABSENCE OF BREAST AND NIPPLE 05/31/2019 URVASIH, BOBAN N Ot V58.69 OTH MED,LT,CURRENT USE 05/31/2019 URVASHI, BOBAN N Ot V86.0 ESTROGEN RECEPTOR 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+] 05/31/2019 URVASHI, BOBAN N Ot 733.00 OSTEOPOROSIS NOS 05/31/2019 URVASHI, BOBAN N Ot V58.69 OTH MED,LT,CURRENT USE 05/31/2019 URVASHI, BOBAN N Ot 110.1 DERMATOPHYTOSIS OF NAIL 05/31/2019 URVASHI, BOBAN N Ot 174.9 MALIGN NEOPL BREAST NOS 05/31/2019 URVASHI, BOBAN N Ot 733.00 OSTEOPOROSIS NOS 05/31/2019 URVASHI, BOBAN N Ot V45.71 ACQUIRED ABSENCE OF BREAST AND NIPPLE 05/31/2019 URVASHI, BOBAN N Ot V58.69 OTH MED,LT,CURRENT USE 05/31/2019 MORGAN LANDIN Ot V86.0 ESTROGEN RECEPTOR 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+] 05/31/2019 MORGAN LANDIN Ot 733.00 OSTEOPOROSIS NOS 05/31/2019 MORGAN LANDIN Ot V58.69 OTH MED,LT,CURRENT USE 05/31/2019 MORGAN LANDIN Ot 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 05/31/2019 MORGAN LANDIN N Ot M81.0 AGE- RELATED OSTEOPOROSIS W/O CURRENT PAT 05/31/2019 MORGAN LANDIN N Ot 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+] 05/31/2019 MORGAN LANDIN Ot 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 05/31/2019 MORGAN LANDIN N Ot Z79.899 OTHER RETIREMENT (CURRENT) DRUG THERAPY 05/31/2019 MORGAN LANDIN N Ot Z90.12 ACQUIRED ABSENCE OF LEFT BREAST AND NIPP 05/31/2019 MORGAN LANDIN N Ot M81.0 AGE- RELATED OSTEOPOROSIS W/O CURRENT PAT 05/31/2019 MORGAN LANDIN N Ot C50.412 MALIG NEOPLASM OF UPPER-OUTER QUADRANT O 05/31/2019 MORGAN LANDIN N Ot M81.0 AGE- RELATED OSTEOPOROSIS W/O CURRENT PAT 05/31/2019 MORGAN LANDIN N Ot 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+] 05/31/2019 MORGAN LANDIN N Ot 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 05/31/2019 MORGAN LANDIN N Ot 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 05/31/2019 MORGAN LANDIN N Ot Z90.12 ACQUIRED ABSENCE OF LEFT BREAST AND NIPP 05/31/2019 MORGAN LANDIN N Ot C50.412 MALIG NEOPLASM OF UPPER-OUTER QUADRANT O 05/31/2019 MORGAN LANDIN N Ot M81.0 AGE- RELATED OSTEOPOROSIS W/O CURRENT PAT 05/31/2019 MORGAN LANDIN N Ot 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+] 05/31/2019 MORGAN LANDIN N Ot 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 05/31/2019 MORGAN LANDIN N Ot Z79.899 OTHER RETIREMENT (CURRENT) DRUG THERAPY 05/31/2019 MORGAN LANDIN N Ot Z90.12 ACQUIRED ABSENCE OF LEFT BREAST AND NIPP 05/31/2019 MORGAN LANDIN Maggie Ot C50.412 MALIG NEOPLASM OF UPPER-OUTER QUADRANT O 05/31/2019 URVASHIMORGAN Ot F03.90 UNSPECIFIED DEMENTIA WITHOUT BEHAVIORAL 05/31/2019 URVASHIMORGAN Ot I10 ESSENTIAL (PRIMARY) HYPERTENSION 05/31/2019 URVASHIMORGAN Ot I48.91 UNSPECIFIED ATRIAL FIBRILLATION 05/31/2019 URVASHIMORGAN Ot M81.0 AGE- RELATED OSTEOPOROSIS W/O CURRENT PAT 05/31/2019 URVASHI MORGAN Serrano Ot 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+] 05/31/2019 MORGAN LANDIN Maggie Ot 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 05/31/2019 MORGAN LANDIN Maggie Ot 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 05/31/2019 MORGAN LANDIN Maggie Ot Z90.12 ACQUIRED ABSENCE OF LEFT BREAST AND NIPP 05/31/2019 Adolfo FRANCO MD Ot I10 ESSENTIAL (PRIMARY) HYPERTENSION 05/31/2019 JOAN CARLSON, Adolfo FISHMAN Ot I48.91 UNSPECIFIED ATRIAL FIBRILLATION 05/31/2019 Adolfo FRANCO MD Ot R05 COUGH 05/31/2019 JOAN CARLSON, Adolfo FISHMAN Ot R55 SYNCOPE AND COLLAPSE 05/31/2019 Adolfo FRANCO MD Ot I10 ESSENTIAL (PRIMARY) HYPERTENSION 05/31/2019 Adolfo FRANCO MD Ot I48.91 UNSPECIFIED ATRIAL FIBRILLATION 05/31/2019 Adolfo FRANCO MD Ot R55 SYNCOPE AND COLLAPSE 05/31/2019 MORGAN LANDIN N Ot F03.90 UNSPECIFIED DEMENTIA WITHOUT BEHAVIORAL 05/31/2019 MORGAN LANDIN N Ot I10 ESSENTIAL (PRIMARY) HYPERTENSION 05/31/2019 MORGAN LANDIN N Ot I48.91 UNSPECIFIED ATRIAL FIBRILLATION 05/31/2019 MORGAN LANDIN N Ot M81.0 AGE- RELATED OSTEOPOROSIS W/O CURRENT PAT 05/31/2019 URVASHI MORGAN Serrano Ot R82.90 UNSPECIFIED ABNORMAL FINDINGS IN URINE 05/31/2019 URVASHI MORGAN Serrano Ot Z08 ENCNTR FOR FOLLOW-UP EXAM AFTER TRTMT FO 05/31/2019 URVASHI INÉSCHERISE Maggie Ot 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+] 05/31/2019 URVASHI MORGAN Serrano Ot Z79.01 RETIREMENT (CURRENT) USE OF 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 05/31/2019 URVASHI MORGAN Serrano Ot 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 05/31/2019 URVASHIMORGAN Ot Z79.899 OTHER RETIREMENT (CURRENT) DRUG THERAPY 05/31/2019 URVASHIMORGAN Ot Z85.3 PERSONAL HISTORY OF MALIGNANT NEOPLASM O 05/31/2019 URVASHIMORGAN Ot Z90.12 ACQUIRED ABSENCE OF LEFT BREAST AND NIPP 05/31/2019 Adolfo FRANCO MD Ot G45 .9 TRANSIENT CEREBRAL ISCHEMIC ATTACK, UNSP 06/04/2019 Adolfo FRANCO MD Ot E78 .5 HYPERLIPIDEMIA, UNSPECIFIED 06/04/2019 Adolfo FRANCO MD, Ot G45 .9 TRANSIENT CEREBRAL ISCHEMIC ATTACK, UNSP 06/04/2019 Adolfo FRANCO MD Ot 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 06/04/2019 Adolfo FRANCO MD Ot I11 .9 HYPERTENSIVE HEART DISEASE WITHOUT HEART 06/04/2019 Adolfo FRANCO MD Ot I27.20 PULMONARY HYPERTENSION, UNSPECIFIED 06/04/2019 Adolfo FRANCO MD Ot I48 .0 PAROXYSMAL ATRIAL FIBRILLATION 06/04/2019 Adolfo FRANCO MD Ot I49 .2 JUNCTIONAL PREMATURE DEPOLARIZATION 06/04/2019 Adolfo FRANCO MD Ot I65.23 OCCLUSION AND STENOSIS OF BILATERAL CUEVAS 06/12/2019 MORGAN LANDIN Ot F03.90 UNSPECIFIED DEMENTIA WITHOUT BEHAVIORAL 06/12/2019 MORGAN LANDIN Ot I10 ESSENTIAL (PRIMARY) HYPERTENSION 06/12/2019 MORGAN LANDIN Ot I48.91 UNSPECIFIED ATRIAL FIBRILLATION 06/12/2019 MORGAN LANDIN Ot M81.0 AGE- RELATED OSTEOPOROSIS W/O CURRENT PAT 06/12/2019 MORGAN LANDIN Maggie Ot R82.90 UNSPECIFIED ABNORMAL FINDINGS IN URINE 06/12/2019 MORGAN LANDIN Maggie Ot Z08 ENCNTR FOR FOLLOW-UP EXAM AFTER TRTMT FO 06/12/2019 MORGAN LANDIN Maggie Ot 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+] 06/12/2019 MORGAN LANDIN Maggie Ot 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 06/12/2019 MORGAN LANDIN Maggie Ot 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 06/12/2019 MORGAN LANDIN N Ot 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 06/12/2019 URVASHI INÉSCHERISE Maggie Ot Z85.3 PERSONAL HISTORY OF MALIGNANT NEOPLASM O 06/12/2019 URVASHI, MORGAN Serrano Ot Z90.12 ACQUIRED ABSENCE OF LEFT BREAST AND NIPP 06/26/2019 MORGAN LANDIN Maggie Ot F03.90 UNSPECIFIED DEMENTIA WITHOUT BEHAVIORAL 06/26/2019 MORGAN LANDIN Maggie Ot I10 ESSENTIAL (PRIMARY) HYPERTENSION 06/26/2019 MORGAN LANDIN Maggie Ot I48.91 UNSPECIFIED ATRIAL FIBRILLATION 06/26/2019 MORGAN LANDIN Maggie Ot M81.0 AGE- RELATED OSTEOPOROSIS W/O CURRENT PAT 06/26/2019 MORGAN LANDIN Maggie Ot R82.90 UNSPECIFIED ABNORMAL FINDINGS IN URINE 06/26/2019 MORGAN LANDIN Maggie Ot Z08 ENCNTR FOR FOLLOW-UP EXAM AFTER TRTMT FO 06/26/2019 MORGAN LANDIN Maggie Ot 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+] 06/26/2019 MORGAN LANDIN Maggie Ot 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 06/26/2019 URVASHI INÉSCHEIRSE Maggie Ot 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 06/26/2019 MORGAN LANDIN N Ot Z79.899 OTHER RETIREMENT (CURRENT) DRUG THERAPY 06/26/2019 URVASHIMORGAN N Ot Z85.3 PERSONAL HISTORY OF MALIGNANT NEOPLASM O 06/26/2019 MROGAN LANDIN Ot Z90.12 ACQUIRED ABSENCE OF LEFT BREAST AND NIPP 07/05/2019 Adolfo FRANCO MD Ot E78 .5 HYPERLIPIDEMIA, UNSPECIFIED 07/05/2019 Adolfo FRANCO MD, Ot G45 .9 TRANSIENT CEREBRAL ISCHEMIC ATTACK, UNSP 07/05/2019 Adolfo FRANCO MD, Ot 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 07/05/2019 JOAN CARLSON, Adolfo FISHMAN Ot I11 .9 HYPERTENSIVE HEART DISEASE WITHOUT HEART 07/05/2019 Adolfo FRANCO MD, Ot I27.20 PULMONARY HYPERTENSION, UNSPECIFIED 07/05/2019 Adolfo FRANCO MD, Ot I48 .0 PAROXYSMAL ATRIAL FIBRILLATION 07/05/2019 Adolfo FRANCO MD Ot I49 .2 JUNCTIONAL PREMATURE DEPOLARIZATION 07/05/2019 Adolfo FRANCO MD Ot I65.23 OCCLUSION AND STENOSIS OF BILATERAL CUEVAS 07/12/2019 MORGAN LANDIN Ot F03.90 UNSPECIFIED DEMENTIA WITHOUT BEHAVIORAL 07/12/2019 MORGAN LANDIN Ot I10 ESSENTIAL (PRIMARY) HYPERTENSION 07/12/2019 MORGAN LANDIN Ot I48.91 UNSPECIFIED ATRIAL FIBRILLATION 07/12/2019 MORGAN LANDIN Ot M81.0 AGE- RELATED OSTEOPOROSIS W/O CURRENT PAT 07/12/2019 MORGAN LANDIN Ot R82.90 UNSPECIFIED ABNORMAL FINDINGS IN URINE 07/12/2019 MORGAN LANDIN Ot Z08 ENCNTR FOR FOLLOW-UP EXAM AFTER TRTMT FO 07/12/2019 MORGAN LANDIN Ot 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+] 07/12/2019 MORGAN LANDIN Ot Z79.01 RETIREMENT (CURRENT) USE OF 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 07/12/2019 MORGAN LANDIN Ot 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 07/12/2019 MORGAN LANDIN Ot Z79.899 OTHER RETIREMENT (CURRENT) DRUG THERAPY 07/12/2019 MORGAN LANDIN Ot Z85.3 PERSONAL HISTORY OF MALIGNANT NEOPLASM O 07/12/2019 MORGAN LANDIN Ot Z90.12 ACQUIRED ABSENCE OF LEFT BREAST AND NIPP 07/16/2019 MORGAN LANDIN Maggie Ot F03.90 UNSPECIFIED DEMENTIA WITHOUT BEHAVIORAL 07/16/2019 MORGAN LANDIN Maggie Ot I10 ESSENTIAL (PRIMARY) HYPERTENSION 07/16/2019 MORGAN LANDIN Maggie Ot I48.91 UNSPECIFIED ATRIAL FIBRILLATION 07/16/2019 MORGAN LANDIN Maggie Ot M81.0 AGE- RELATED OSTEOPOROSIS W/O CURRENT PAT 07/16/2019 MORGAN LANDIN Maggie Ot R82.90 UNSPECIFIED ABNORMAL FINDINGS IN URINE 07/16/2019 MORGAN LANDIN Maggie Ot Z08 ENCNTR FOR FOLLOW-UP EXAM AFTER TRTMT FO 07/16/2019 MORGAN LANDIN Maggie Ot 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+] 07/16/2019 MORGAN LANDIN Maggie Ot 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 07/16/2019 MORGAN LANDIN Maggie Ot 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 07/16/2019 MORGAN LANDIN Maggie Ot Z79.899 OTHER RETIREMENT (CURRENT) DRUG THERAPY 07/16/2019 MORGAN LANDIN Maggie Ot Z85.3 PERSONAL HISTORY OF MALIGNANT NEOPLASM O 07/16/2019 MORGAN LANDIN Maggie Ot Z90.12 ACQUIRED ABSENCE OF LEFT BREAST AND NIPP 07/24/2019 Adolfo FRANCO MD Ot E78 .5 HYPERLIPIDEMIA, UNSPECIFIED 07/24/2019 Adolfo FRANCO MD, Ot G45 .9 TRANSIENT CEREBRAL ISCHEMIC ATTACK, UNSP 07/24/2019 Adolfo FRANCO MD Ot 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 07/24/2019 Adolfo FRANCO MD Ot I11 .9 HYPERTENSIVE HEART DISEASE WITHOUT HEART 07/24/2019 Adolfo FRANCO MD Ot I27.20 PULMONARY HYPERTENSION, UNSPECIFIED 07/24/2019 Adolfo FRANCO MD, Ot I48 .0 PAROXYSMAL ATRIAL FIBRILLATION 07/24/2019 Adolfo FRANCO MD, Ot I49 .2 JUNCTIONAL PREMATURE DEPOLARIZATION 07/24/2019 Adolfo FRANCO MD, Ot I65.23 OCCLUSION AND STENOSIS OF BILATERAL CUEVAS 09/10/2019 URVASHIMORGAN Ot F03.90 UNSPECIFIED DEMENTIA WITHOUT BEHAVIORAL 09/10/2019 URVASHIMORGAN Ot I10 ESSENTIAL (PRIMARY) HYPERTENSION 09/10/2019 URVASHIMORGAN Ot I48.91 UNSPECIFIED ATRIAL FIBRILLATION 09/10/2019 URVASHIMORGAN Ot M81.0 AGE- RELATED OSTEOPOROSIS W/O CURRENT PAT 09/10/2019 URVASHI MORGAN Serrano Ot R82.90 UNSPECIFIED ABNORMAL FINDINGS IN URINE 09/10/2019 URVASHI MORGAN Serrano Ot Z08 ENCNTR FOR FOLLOW-UP EXAM AFTER TRTMT FO 09/10/2019 URVASHIMORGAN Ot 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+] 09/10/2019 URVASHIMORGAN Ot 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 09/10/2019 URVASHIMORGAN Ot 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 09/10/2019 URVASHIMORGAN Ot Z79.899 OTHER RETIREMENT (CURRENT) DRUG THERAPY 09/10/2019 URVASHIMORGAN Ot Z85.3 PERSONAL HISTORY OF MALIGNANT NEOPLASM O 09/10/2019 URVASHIMORGAN Ot Z90.12 ACQUIRED ABSENCE OF LEFT BREAST AND NIPP 11/14/2019 MORGAN LANDIN Ot C50.412 MALIG NEOPLASM OF UPPER-OUTER QUADRANT O 11/14/2019 URVASHIMORGAN Ot J90 PLEURAL EFFUSION, NOT ELSEWHERE CLASSIFI 11/14/2019 MORGAN LANDIN Ot J98.11 ATELECTASIS 11/14/2019 MORGAN LANDIN Ot R31.9 HEMATURIA, UNSPECIFIED 11/23/2019 MORGAN LANDIN Ot F03.90 UNSPECIFIED DEMENTIA WITHOUT BEHAVIORAL 11/23/2019 MORGAN LANDIN Ot I10 ESSENTIAL (PRIMARY) HYPERTENSION 11/23/2019 MORGAN LANDIN Ot I48.91 UNSPECIFIED ATRIAL FIBRILLATION 11/23/2019 MORGAN LANDIN Ot M81.0 AGE- RELATED OSTEOPOROSIS W/O CURRENT PAT 11/23/2019 MORGAN LANDIN Ot R82.90 UNSPECIFIED ABNORMAL FINDINGS IN URINE 11/23/2019 MORGAN LANDIN Ot Z08 ENCNTR FOR FOLLOW-UP EXAM AFTER TRTMT FO 11/23/2019 MORGAN LANDIN Ot 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+] 11/23/2019 URVASHI MORGAN Serrano Ot Z79.01 RETIREMENT (CURRENT) USE OF 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 11/23/2019 URVASHIMORGAN Ot 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 11/23/2019 URVASHI INÉSCHERISE Maggie Ot Z79.899 OTHER RETIREMENT (CURRENT) DRUG THERAPY 11/23/2019 MORGAN LANDIN Ot Z85.3 PERSONAL HISTORY OF MALIGNANT NEOPLASM O 11/23/2019 MORGAN LANDIN Ot Z90.12 ACQUIRED ABSENCE OF LEFT BREAST AND NIPP 12/04/2019 MORGAN LANDIN Ot C50.412 MALIG NEOPLASM OF UPPER-OUTER QUADRANT O 12/04/2019 MORGAN LANDIN Ot J90 PLEURAL EFFUSION, NOT ELSEWHERE CLASSIFI 12/04/2019 MORGAN LANDIN Ot J98.11 ATELECTASIS 12/04/2019 MORGAN LANDIN Ot R31.9 HEMATURIA, UNSPECIFIED 12/13/2019 MORGAN LANDIN Ot F03.90 UNSPECIFIED DEMENTIA WITHOUT BEHAVIORAL 12/13/2019 MORGAN LANDIN Ot I10 ESSENTIAL (PRIMARY) HYPERTENSION 12/13/2019 MORGAN LANDIN Ot I48.91 UNSPECIFIED ATRIAL FIBRILLATION 12/13/2019 MORGAN LANDIN Ot M81.0 AGE- RELATED OSTEOPOROSIS W/O CURRENT PAT 12/13/2019 MORGAN LANDIN Ot R82.90 UNSPECIFIED ABNORMAL FINDINGS IN URINE 12/13/2019 MORGAN LANDIN Ot Z08 ENCNTR FOR FOLLOW-UP EXAM AFTER TRTMT FO 12/13/2019 MORGAN LANDIN Ot 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+] 12/13/2019 URVASHIMORGAN Ot Z79.01 RETIREMENT (CURRENT) USE OF 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 12/13/2019 MORGAN LANDIN Ot 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 12/13/2019 URVASHIMORGAN Ot Z79.899 OTHER RETIREMENT (CURRENT) DRUG THERAPY 12/13/2019 MORGAN LANDIN Ot Z85.3 PERSONAL HISTORY OF MALIGNANT NEOPLASM O 12/13/2019 MORGAN LANDIN Ot Z90.12 ACQUIRED ABSENCE OF LEFT BREAST AND NIPP 12/13/2019 Ot 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 12/13/2019 Ot 365.9 GLAU COMA NOS 12/13/2019 Ot V10.82 HX- MALIG SKIN MELANOMA 12/13/2019 Ot V45.71 ACQ UIRED ABSENCE OF BREAST AND NIPPLE 12/13/2019 Ot V86.0 ESTR OGEN RECEPTOR 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+] 12/13/2019 Ot 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 12/13/2019 Ot V45.71 ACQ UIRED ABSENCE OF BREAST AND NIPPLE 12/13/2019 Ot V58.69 OTH MED,LT,CURRENT USE 12/13/2019 Ot V86.0 ESTR OGEN RECEPTOR 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+] 12/13/2019 Ot 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 12/13/2019 Ot 780.79 OTH MALAISE FATIGUE 12/13/2019 Ot V10.82 HX- MALIG SKIN MELANOMA 12/13/2019 Ot V45.71 ACQ UIRED ABSENCE OF BREAST AND NIPPLE 12/13/2019 Ot V58.69 OTH MED,LT,CURRENT USE 12/13/2019 Ot V86.0 ESTR OGEN RECEPTOR 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+] 12/13/2019 Ot 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 12/13/2019 Ot 733.00 OST EOPOROSIS NOS 12/13/2019 Ot V10.82 HX- MALIG SKIN MELANOMA 12/13/2019 Ot V45.71 ACQ UIRED ABSENCE OF BREAST AND NIPPLE 12/13/2019 Ot V58.69 OTH MED,LT,CURRENT USE 12/13/2019 Ot V86.0 ESTR OGEN RECEPTOR 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+] 12/13/2019 Ot 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 12/13/2019 Ot 733.00 OST EOPOROSIS NOS 12/13/2019 Ot V10.82 HX- MALIG SKIN MELANOMA 12/13/2019 Ot V45.71 ACQ UIRED ABSENCE OF BREAST AND NIPPLE 12/13/2019 Ot V58.69 OTH MED,LT,CURRENT USE 12/13/2019 Ot V86.0 ESTR OGEN RECEPTOR 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+] 12/13/2019 Ot 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 12/13/2019 Ot 733.00 OST EOPOROSIS NOS 12/13/2019 Ot V10.82 HX- MALIG SKIN MELANOMA 12/13/2019 Ot V45.71 ACQ UIRED ABSENCE OF BREAST AND NIPPLE 12/13/2019 Ot V58.69 OTH MED,LT,CURRENT USE 12/13/2019 Ot V86.0 ESTR OGEN RECEPTOR 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+] 12/13/2019 Ot 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 12/13/2019 Ot 564.00 UNS PEC CONSTIPATION 12/13/2019 Ot 733.00 OST EOPOROSIS NOS 12/13/2019 Ot V45.71 ACQ UIRED ABSENCE OF BREAST AND NIPPLE 12/13/2019 Ot V58.69 OTH MED,LT,CURRENT USE 12/13/2019 Ot V86.0 ESTR OGEN RECEPTOR 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+] 12/13/2019 Ot 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 12/13/2019 Ot 733.00 OST EOPOROSIS NOS 12/13/2019 Ot V45.71 ACQ UIRED ABSENCE OF BREAST AND NIPPLE 12/13/2019 Ot V58.69 OTH MED,LT,CURRENT USE 12/13/2019 Ot V86.0 ESTR OGEN RECEPTOR 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+] 12/13/2019 Ot 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 12/13/2019 Ot 564.00 UNS PEC CONSTIPATION 12/13/2019 Ot 733.00 OST EOPOROSIS NOS 12/13/2019 Ot V45.71 ACQ UIRED ABSENCE OF BREAST AND NIPPLE 12/13/2019 Ot V58.69 OTH MED,LT,CURRENT USE 12/13/2019 Ot V86.0 ESTR OGEN RECEPTOR 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+] 12/13/2019 Ot 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 12/13/2019 Ot 427.31 ATR IAL FIBRILLATION 12/13/2019 Ot 733.00 OST EOPOROSIS NOS 12/13/2019 Ot V45.71 ACQ UIRED ABSENCE OF BREAST AND NIPPLE 12/13/2019 Ot V58.69 OTH MED,LT,CURRENT USE 12/13/2019 Ot V86.0 ESTR OGEN RECEPTOR 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+] 12/13/2019 Ot 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 12/13/2019 Ot 276.8 HYPO POTASSEMIA 12/13/2019 Ot 427.31 ATR IAL FIBRILLATION 12/13/2019 Ot 733.00 OST EOPOROSIS NOS 12/13/2019 Ot V45.71 ACQ UIRED ABSENCE OF BREAST AND NIPPLE 12/13/2019 Ot V58.69 OTH MED,LT,CURRENT USE 12/13/2019 Ot V86.0 ESTR OGEN RECEPTOR 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+] 12/13/2019 Ot 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 12/13/2019 Ot 427.31 ATR IAL FIBRILLATION 12/13/2019 Ot 733.00 OST EOPOROSIS NOS 12/13/2019 Ot V45.71 ACQ UIRED ABSENCE OF BREAST AND NIPPLE 12/13/2019 Ot V58.69 OTH MED,LT,CURRENT USE 12/13/2019 Ot V86.0 ESTR OGEN RECEPTOR 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+] 12/13/2019 URVASHI, BOBAN N Ot 174.9 MALIGN NEOPL BREAST NOS 12/13/2019 URVASHI, BOBAN N Ot 427.31 ATRIAL FIBRILLATION 12/13/2019 URVASHI, BOBAN N Ot 733.00 OSTEOPOROSIS NOS 12/13/2019 URVASHI, BOBAN N Ot V45.71 ACQUIRED ABSENCE OF BREAST AND NIPPLE 12/13/2019 URVASHI, BOBAN N Ot V58.69 OTH MED,LT,CURRENT USE 12/13/2019 URVASHI, BOBAN N Ot V86.0 ESTROGEN RECEPTOR 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+] 12/13/2019 URVASHI, BOBAN N Ot 174.9 MALIGN NEOPL BREAST NOS 12/13/2019 URVASHI, BOBAN N Ot 733.00 OSTEOPOROSIS NOS 12/13/2019 URVASHI, BOBAN N Ot V45.71 ACQUIRED ABSENCE OF BREAST AND NIPPLE 12/13/2019 URVASHI, BOBAN N Ot V58.69 OTH MED,LT,CURRENT USE 12/13/2019 URVASHI, BOBAN N Ot V86.0 ESTROGEN RECEPTOR 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+] 12/13/2019 URVASHI, BOBAN N Ot 174.9 MALIGN NEOPL BREAST NOS 12/13/2019 URVASHI, BOBAN N Ot 733.00 OSTEOPOROSIS NOS 12/13/2019 URVASHI, BOBAN N Ot V45.71 ACQUIRED ABSENCE OF BREAST AND NIPPLE 12/13/2019 URVASHI, INÉSAN N Ot V58.69 OTH MED,LT,CURRENT USE 12/13/2019 URVASHI, INÉSAN N Ot V86.0 ESTROGEN RECEPTOR 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+] 12/13/2019 URVASHI, BOBAN N Ot 174.9 MALIGN NEOPL BREAST NOS 12/13/2019 URVASHI, BOBAN N Ot 427.31 ATRIAL FIBRILLATION 12/13/2019 URVASHI, BOBAN N Ot 733.00 OSTEOPOROSIS NOS 12/13/2019 URVASHI, BOBAN N Ot V45.71 ACQUIRED ABSENCE OF BREAST AND NIPPLE 12/13/2019 URVASHI, BOBAN N Ot V58.69 OTH MED,LT,CURRENT USE 12/13/2019 URVASHI, BOBAN N Ot V86.0 ESTROGEN RECEPTOR 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+] 12/13/2019 URVASHI, BOBAN N Ot 174.9 MALIGN NEOPL BREAST NOS 12/13/2019 URVASHI, BOBAN N Ot 427.31 ATRIAL FIBRILLATION 12/13/2019 URVASHI, BOBAN N Ot 733.00 OSTEOPOROSIS NOS 12/13/2019 URVASHI, BOBAN N Ot V45.71 ACQUIRED ABSENCE OF BREAST AND NIPPLE 12/13/2019 URVASHI, BOBAN N Ot V58.69 OTH MED,LT,CURRENT USE 12/13/2019 URVASHI, BOBAN N Ot V86.0 ESTROGEN RECEPTOR 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+] 12/13/2019 URVASHI, BOBAN N Ot 174.9 MALIGN NEOPL BREAST NOS 12/13/2019 URVASHI, BOBAN N Ot 427.31 ATRIAL FIBRILLATION 12/13/2019 URVASHI, BOBAN N Ot 733.00 OSTEOPOROSIS NOS 12/13/2019 URVASHI, INÉSAN N Ot V45.71 ACQUIRED ABSENCE OF BREAST AND NIPPLE 12/13/2019 URVASHI, BOBAN N Ot V58.69 OTH MED,LT,CURRENT USE 12/13/2019 URVASHI, BOBAN N Ot V86.0 ESTROGEN RECEPTOR 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+] 12/13/2019 URVASHI, BOBAN N Ot 733.00 OSTEOPOROSIS NOS 12/13/2019 URVASHI, BOBAN N Ot V58.69 OTH MED,LT,CURRENT USE 12/13/2019 URVASHI, BOBAN N Ot 110.1 DERMATOPHYTOSIS OF NAIL 12/13/2019 URVASHI, BOBAN N Ot 174.9 MALIGN NEOPL BREAST NOS 12/13/2019 MORGAN LANDIN Ot 733.00 OSTEOPOROSIS NOS 12/13/2019 MORGAN LANDIN Ot V45.71 ACQUIRED ABSENCE OF BREAST AND NIPPLE 12/13/2019 MORGAN LANDIN Ot V58.69 OTH MED,LT,CURRENT USE 12/13/2019 MORGAN LANDIN Ot V86.0 ESTROGEN RECEPTOR 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+] 12/13/2019 MORGAN LANDIN Ot 733.00 OSTEOPOROSIS NOS 12/13/2019 MORGAN LANDIN Ot V58.69 OTH MED,LT,CURRENT USE 12/13/2019 MORGAN LANDIN Maggie Ot 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 12/13/2019 MORGAN LANDIN Maggie Ot M81.0 AGE- RELATED OSTEOPOROSIS W/O CURRENT PAT 12/13/2019 MORGAN LANDIN Ot 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+] 12/13/2019 MORGAN LANDIN Ot 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 12/13/2019 MORGAN LANDIN Maggie Ot 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 12/13/2019 MORGAN LANDIN Maggie Ot Z90.12 ACQUIRED ABSENCE OF LEFT BREAST AND NIPP 12/13/2019 MORGAN LANDIN Maggie Ot M81.0 AGE- RELATED OSTEOPOROSIS W/O CURRENT PAT 12/13/2019 MORGAN LANDIN Maggie Ot C50.412 MALIG NEOPLASM OF UPPER-OUTER QUADRANT O 12/13/2019 MORGAN LANDIN Maggie Ot M81.0 AGE- RELATED OSTEOPOROSIS W/O CURRENT PAT 12/13/2019 MORGAN LANDIN Maggie Ot 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+] 12/13/2019 MORGAN LANDIN Maggie Ot 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 12/13/2019 MORGAN LANDIN N Ot Z79.899 OTHER RETIREMENT (CURRENT) DRUG THERAPY 12/13/2019 MORGAN LANDIN N Ot Z90.12 ACQUIRED ABSENCE OF LEFT BREAST AND NIPP 12/13/2019 MORGAN LANDIN Maggie Ot C50.412 MALIG NEOPLASM OF UPPER-OUTER QUADRANT O 12/13/2019 MORGAN LANDIN Ot M81.0 AGE- RELATED OSTEOPOROSIS W/O CURRENT PAT 12/13/2019 MORGAN LANDIN Ot 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+] 12/13/2019 MORGAN LANDIN Ot 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 12/13/2019 MORGAN LANDIN N Ot Z79.899 OTHER RETIREMENT (CURRENT) DRUG THERAPY 12/13/2019 MORGAN LANDIN Maggie Ot Z90.12 ACQUIRED ABSENCE OF LEFT BREAST AND NIPP 12/13/2019 MORGAN LANDIN Maggie Ot C50.412 MALIG NEOPLASM OF UPPER-OUTER QUADRANT O 12/13/2019 MORGAN LANDIN Maggie Ot F03.90 UNSPECIFIED DEMENTIA WITHOUT BEHAVIORAL 12/13/2019 MORGAN LANDIN Maggie Ot I10 ESSENTIAL (PRIMARY) HYPERTENSION 12/13/2019 MORGAN LANDIN Maggie Ot I48.91 UNSPECIFIED ATRIAL FIBRILLATION 12/13/2019 MORGAN LANDIN Ot M81.0 AGE- RELATED OSTEOPOROSIS W/O CURRENT PAT 12/13/2019 MORGAN LANDIN Ot 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+] 12/13/2019 MORGAN LANDIN Ot 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 12/13/2019 MORGAN LANDIN Maggie Ot Z79.899 OTHER RETIREMENT (CURRENT) DRUG THERAPY 12/13/2019 MORGAN LANDIN Maggie Ot Z90.12 ACQUIRED ABSENCE OF LEFT BREAST AND NIPP 12/13/2019 JOAN CARLSON, Adolfo FISHMAN Ot I10 ESSENTIAL (PRIMARY) HYPERTENSION 12/13/2019 JOAN CARLSON, Adolfo FISHMAN Ot I48.91 UNSPECIFIED ATRIAL FIBRILLATION 12/13/2019 JOAN CARLSON, Adolfo FISHMAN Ot R05 COUGH 12/13/2019 JOAN CARLSON, Adolfo FISHMAN Ot R55 SYNCOPE AND COLLAPSE 12/13/2019 JOAN CARLSON, Adolfo FISHMAN Ot I10 ESSENTIAL (PRIMARY) HYPERTENSION 12/13/2019 JOAN CARLSON, Adolfo FISHMAN Ot I48.91 UNSPECIFIED ATRIAL FIBRILLATION 12/13/2019 JOAN CARLSON, Adolfo FISHMAN Ot R55 SYNCOPE AND COLLAPSE 12/13/2019 JOAN CARLSON, Adolfo FISHMAN Ot E78 .5 HYPERLIPIDEMIA, UNSPECIFIED 12/13/2019 JOAN CARLSON, Adolfo FISHMAN Ot G45 .9 TRANSIENT CEREBRAL ISCHEMIC ATTACK, UNSP 12/13/2019 JOAN CARLSON, Aodlfo FISHMAN Ot 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 12/13/2019 JOAN CARLSON, Adolfo FISHMAN Ot I11 .9 HYPERTENSIVE HEART DISEASE WITHOUT HEART 12/13/2019 JOAN CARLSON, Adolfo FISHMAN Ot I27.20 PULMONARY HYPERTENSION, UNSPECIFIED 12/13/2019 JOAN CARLSON, Adolfo FISHMAN Ot I48 .0 PAROXYSMAL ATRIAL FIBRILLATION 12/13/2019 JOAN CARLSON, Adolfo FISHMAN Ot I49 .2 JUNCTIONAL PREMATURE DEPOLARIZATION 12/13/2019 JOAN CARLSON, Adolfo FISHMAN Ot I65.23 OCCLUSION AND STENOSIS OF BILATERAL CUEVAS 12/13/2019 MORGAN LANDIN Ot F03.90 UNSPECIFIED DEMENTIA WITHOUT BEHAVIORAL 12/13/2019 MORGAN LANDIN Ot I10 ESSENTIAL (PRIMARY) HYPERTENSION 12/13/2019 MORGAN LANDIN Ot I48.91 UNSPECIFIED ATRIAL FIBRILLATION 12/13/2019 MORGAN LANDIN Ot M81.0 AGE- RELATED OSTEOPOROSIS W/O CURRENT PAT 12/13/2019 MORGAN LANDIN Ot R82.90 UNSPECIFIED ABNORMAL FINDINGS IN URINE 12/13/2019 MORGAN LANDIN Ot Z08 ENCNTR FOR FOLLOW-UP EXAM AFTER TRTMT FO 12/13/2019 MORGAN LANDIN Ot 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+] 12/13/2019 MORGAN LANDIN Ot 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 12/13/2019 MORGAN LANDIN Ot 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 12/13/2019 MORGAN LANDIN Ot Z79.899 OTHER RETIREMENT (CURRENT) DRUG THERAPY 12/13/2019 MORGAN LANDIN Ot Z85.3 PERSONAL HISTORY OF MALIGNANT NEOPLASM O 12/13/2019 MORGAN LANDIN Ot Z90.12 ACQUIRED ABSENCE OF LEFT BREAST AND NIPP 12/13/2019 MORGAN LANDIN Ot C50.412 MALIG NEOPLASM OF UPPER-OUTER QUADRANT O 12/13/2019 MORGAN LANDIN Ot J90 PLEURAL EFFUSION, NOT ELSEWHERE CLASSIFI 12/13/2019 MORGAN LANDIN Maggie Ot J98.11 ATELECTASIS 12/13/2019 MORGAN LANDIN Maggie Ot R31.9 HEMATURIA, UNSPECIFIED 12/17/2019 MORGAN LANDIN Maggie Ot F03.90 UNSPECIFIED DEMENTIA WITHOUT BEHAVIORAL 12/17/2019 MORGAN LANDIN Maggie Ot I10 ESSENTIAL (PRIMARY) HYPERTENSION 12/17/2019 MORGAN LANDIN Maggie Ot I48.91 UNSPECIFIED ATRIAL FIBRILLATION 12/17/2019 MORGAN LANDIN Maggie Ot M81.0 AGE- RELATED OSTEOPOROSIS W/O CURRENT PAT 12/17/2019 MORGAN LANDIN Maggie Ot R82.90 UNSPECIFIED ABNORMAL FINDINGS IN URINE 12/17/2019 MORGAN LANDIN Maggie Ot Z08 ENCNTR FOR FOLLOW-UP EXAM AFTER TRTMT FO 12/17/2019 MORGAN LANDIN Maggie Ot 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+] 12/17/2019 MORGAN LANDIN Maggie Ot Z79.01 RETIREMENT (CURRENT) USE OF 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 12/17/2019 MORGAN LANDIN Maggie Ot 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 12/17/2019 MORGAN LANDIN Maggie Ot 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 12/17/2019 MORGAN LANDIN Maggie Ot Z85.3 PERSONAL HISTORY OF MALIGNANT NEOPLASM O 12/17/2019 MORGAN LANDIN Maggie Ot Z90.12 ACQUIRED ABSENCE OF LEFT BREAST AND NIPP Procedures There is no data. Results Test Result Range Bacterial urine culture - 06/12/18 09:30 Bacterial urine culture SEE REPORT NRG COLONY COUNT . NRG CMP - 11/23/18 11:14 GLUCOSE 90 mg/dL 65-99 UREA NITROGEN (BUN) 15 mg/dL 7-25 CREATININE 0.87 mg/dL 0.60-0.88 eGFR NON-AFR. TANZANIAN 62 mL/min/1.73m2 > OR = 60 eGFR 71 mL/min/1.73m2 > OR = 60 BUN/CREATININE RATIO NOT APPLICABLE (calc) 6-22 SODIUM 141 mmol/L 135-146 POTASSIUM 4.1 mmol/L 3.5-5.3 CHLORIDE 103 mmol/L 98-110 CARBON DIOXIDE 31 mmol/L 20-32 CALCIUM 8.9 mg/dL 8.6-10.4 PROTEIN, TOTAL 6.0 g/dL 6.1-8.1 ALBUMIN 3.6 g/dL 3.6-5.1 GLOBULIN 2.4 g/dL (calc) 1.9-3.7 ALBUMIN/GLOBULIN RATIO 1.5 (calc) 1.0-2. 5 BILIRUBIN, TOTAL 0.6 mg/dL 0.2-1.2 ALKALINE PHOSPHATASE 64 U/L 33-130 AST 14 U/L 10-35 ALT 7 U/L 6-29 CULTURE, URINE - 03/02/19 11:35 CULTURE, URINE, ROUTINE SEE NOTE NRG CMP - 06/07/19 09:51 GLUCOSE 89 mg/dL 65-99 UREA NITROGEN (BUN) 13 mg/dL 7-25 CREATININE 0.88 mg/dL 0.60-0.88 eGFR NON-AFR. TANZANIAN 60 mL/min/1.73m2 > OR = 60 eGFR 70 mL/min/1.73m2 > OR = 60 BUN/CREATININE RATIO NOT APPLICABLE (calc) 6-22 SODIUM 140 mmol/L 135-146 POTASSIUM 4.1 mmol/L 3.5-5.3 CHLORIDE 104 mmol/L 98-110 CARBON DIOXIDE 26 mmol/L 20-32 CALCIUM 9.2 mg/dL 8.6-10.4 PROTEIN, TOTAL 6.4 g/dL 6.1-8.1 ALBUMIN 3.7 g/dL 3.6-5.1 GLOBULIN 2.7 g/dL (calc) 1.9-3.7 ALBUMIN/GLOBULIN RATIO 1.4 (calc) 1.0-2. 5 BILIRUBIN, TOTAL 0.8 mg/dL 0.2-1.2 ALKALINE PHOSPHATASE 67 U/L 33-130 AST 14 U/L 10-35 ALT 9 U/L 6-29 Encounters ACCT No. Visit Date/Time Discharge Status Pt. Type Provider Facility Loc./Unit Complaint [id number] 09/30/2014 14:32:38 09/30/2014 23:59: 59 CLS Outpatient Anthony Reno [id number] 09/03/2019 11:00:00 09/03/2019 23:59: 59 CLS Outpatient SHAR DIAZ [place] [id number] 06/07/2019 15:40:00 Document Registration [id number] 03/02/2019 10:30:00 Document Registration [id number] 11/23/2018 17:30:00 Document Registration [id number] 11/12/2019 10:39:00 23:59:59 CLS Outpatient MORGAN LANDIN N [facility] RAD FS HEMATURIA,[place] [id number] 11/06/2019 09:52:00 23:59:59 CLS Outpatient URVASHI MORGAN N V [facility] ONC [id number] 06/12/2019 09:29:00 019 00:01:00 DIS Outpatient MORGAN LANDIN N [facility] ONC [id number] 05/31/2019 08:20:00 019 23:59:59 CLS Outpatient Adolfo FRANCO MD [facility] CARD TIA [id number] 12/11/2018 09:11:00 019 00:01:00 DIS Outpatient URVASHI MORGAN N V [facility] ONC [id number] 06/12/2018 08:46:00 018 00:01:00 DIS Outpatient URVASHI MORGAN N V [facility] ONC [id number] 11/29/2017 09:29:00 018 00:01:00 DIS Outpatient URVASHIMORGAN GARDNER N V [facility] ONC [id number] 11/29/2017 09:15:00 018 23:59:59 CLS Preadmit MORGAN LANDIN N [facility] ONC [id number] 06/19/2017 10:00:00 017 23:59:59 CLS Preadmit Adolfo FRANCO MD [facility] CARD AFIB [id number] 05/09/2017 09:01:00 017 00:01:00 DIS Outpatient Adolfo FRANCO MD [facility] CARD AFIB [id number] 06/07/2017 16:02:00 017 09:38:00 DIS Outpatient MORGAN LANDIN N [facility] ONC [id number] 04/11/2017 09:12:00 017 23:59:59 CLS Outpatient Adolfo FRANCO MD [facility] CARD AFIB [id number] 12/14/2016 10:01:00 017 23:59:59 CLS Outpatient MORGAN LANDIN N V [facility] FS [id number] 06/01/2016 11:52:00 016 23:59:59 CLS Outpatient MORGAN LANDIN N V [facility] FS [id number] 12/02/2015 11:11:00 016 23:59:59 CLS Outpatient MORGAN LANDIN Maggie V [facility] FS [id number] 11/06/2015 09:38:00 016 23:59:59 CLS Outpatient MORGAN LANDIN N V [facility] RAD OSTEOPOROSIS [id number] 07/08/2015 10:25:00 015 23:59:59 CLS Outpatient MORGAN LANDIN N V [facility] FS [id number] 04/22/2015 11:05:00 015 23:59:59 CLS Outpatient MORGAN LANDIN N V [facility] FS [id number] 01/07/2015 10:06:00 015 23:59:59 CLS Outpatient URVASHIMORGAN GARDNER N V [facility] FS [id number] 10/15/2014 10:24:00 015 23:59:59 CLS Outpatient MORGAN LANDIN N V [facility] FS [id number] 07/09/2014 10:26:00 014 23:59:59 CLS Outpatient URVASHIINÉS GARDNERCHERISE N V [facility] FS [id number] 03/26/2014 11:31:00 23:59:59 CLS Outpatient MORGAN LANDIN V [facility] [id number] 01/15/2014 10:59:00 23:59:59 CLS Outpatient MORGAN LANDIN V [facility] [id number] 09/25/2013 12:59:00 23:59:59 CLS Outpatient MORGAN LANDIN V [facility] [id number] 07/17/2013 12:19:00 23:59:59 CLS Outpatient MORGAN LANDIN V [facility] [id number] 01/16/2013 11:34:00 23:59:59 CLS Outpatient MORGAN LANDIN V [facility] [id number] 06/20/2012 13:49:00 Document Registration [id number] 03/21/2012 13:54:00 Document Registration [id number] 12/21/2011 10:40:00 Document Registration [id number] 09/28/2011 15:12:00 Document Registration [id number] 06/15/2011 13:57:00 Document Registration [id number] 03/09/2011 14:16:00 Document Registration [id number] 12/01/2010 14:02:00 Document Registration [id number] 09/01/2010 13:10:00 Document Registration [id number] 06/09/2010 12:17:00 Document Registration [id number] 03/10/2010 14:09:00 Document Registration [id number] 11/25/2009 11:28:00 Document Registration [id number] 10/28/2009 15:36:00 Document Registration
[2019-12-22 20:34] VITALS: BP 145/76
--- NOTE | 2019-12-22 20:51 | Diagnostic Imaging Report ---
INDICATION: Slid out of bed to floor. Left rib pain. EXAMINATION: PA and lateral views of the chest. FINDINGS: The lungs are well-aerated. There is mild air trapping. There are no consolidated infiltrates. No masses. The heart is mildly enlarged. Aorta is atherosclerotic and mildly ectatic. No pneumothorax or pleural effusion. There is mild apical pleural scarring, bilaterally. No rib fracture is demonstrated. Lateral view shows mild compression fracture involving the midthoracic vertebral body estimated to be T7. IMPRESSION: 1. 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 2. No rib fractures, pneumothorax or pleural effusion. 3. Mild compression fracture of mid thoracic spine, as described, of indeterminate age. Clinical correlation for focal pain. Dictated by: Dictated on workstation # [id number]
== END 2019-12-22 21:00 | disposition home or self-care (01) ==
LOC: EDUNIT# 20:20 → ER FS 20:24
DX: S20.212A Contusion of left front wall of thorax, initial encounter (principal); W06.XXXA Fall from bed, initial encounter
CPT/HCPCS: 71046

== ENCOUNTER 2020-07-01 10:50 | Outpatient (RCR) | payer MEDICARE, OTHER ==
[~2020-07-01 10:50] MED LIST changes: -CATHETER FLUSH 10 ML SYR IV PRN; +DENOSUMAB 60 MG/1 ML (PROLIA) CANCER CTR SQ SCH; -HOLD METFORMIN - RECEIVED CONTRAST 20 ML VIAL IV SCH; -IOHEXOL 350 MG/ML 100 ML (OMNIPAQUE 350) VIAL IV ONE; -NS 100 ML (IVPB) BAG IV ONE
[2020-07-01 11:00] LABS: BASOPHILS # (AUTO) 0.1 10^3/uL (0.0-0.1); BASOPHILS % (AUTO) 1 % (0-10); EOSINOPHILS # (AUTO) 0.2 10^3/uL (0.0-0.3); EOSINOPHILS % (AUTO) 2 % (0-10); HEMATOCRIT 35 % (35-52); HEMOGLOBIN 11.4 g/dL (11.5-16.0); LYMPHOCYTES % (AUTO) 12 % (12-44); MEAN CORPUSCULAR HEMOGLOBIN 30 pg (25-34); MEAN CORPUSCULAR HGB CONC 33 g/dL (32-36); MEAN CORPUSCULAR VOLUME 92 fL (80-99); MEAN PLATELET VOLUME 10.1 fL (9.0-12.2); MONOCYTES # (AUTO) 0.8 10^3/uL (0.0-1.0); MONOCYTES % (AUTO) 9 % (0-12); NEUTROPHILS # (AUTO) 6.2 10^3/uL (1.8-7.8); NEUTROPHILS % (AUTO) 76 % (42-75); PLATELET COUNT 250 10^3/uL (130-400); WHITE BLOOD COUNT 8.1 10^3/uL (4.3-11.0)
[2020-07-01 11:21] LABS: ALANINE AMINOTRANSFERASE < 6 U/L (0-55); ALBUMIN 3.9 GM/DL (3.2-4.5); ALKALINE PHOSPHATASE 75 U/L (40-136); BILIRUBIN,TOTAL 0.9 MG/DL (0.1-1.0); BUN/CREATININE RATIO 11; CALCIUM 9.4 MG/DL (8.5-10.1); CARBON DIOXIDE 25 MMOL/L (21-32); CHLORIDE 101 MMOL/L (98-107); CREATININE SERUM 1.06 MG/DL (0.60-1.30); GFR ESTIMATED 49; GLUCOSE 121 MG/DL (70-105); POTASSIUM 4.2 MMOL/L (3.6-5.0); SODIUM 137 MMOL/L (135-145)
== END 2020-09-29 | disposition home or self-care (01) ==
LOC: ONC 10:50
PROVIDERS: ATTEND Internal Medicine Hematology & Oncology
DX: C50.912 Malignant neoplasm of unspecified site of left female breast (principal); M81.0 Age-related osteoporosis without current pathological fracture; I48.0 Paroxysmal atrial fibrillation; I10 Essential (primary) hypertension
CPT/HCPCS: 80053; 82306; 85025; 96372; G0463